=== PATIENT | male | born 1960 | race Caucasian/White ===

== ENCOUNTER 2016-06-21 12:59 | Emergency (ER) | payer OTHER, MEDICARE ==
[~2016-06-21] VITALS: Ht 175.3 cm; Wt 58.1 kg
[~2016-06-21 12:59] MED LIST: <VITAMIN> A + D1 APP TOP; ACETAMINOPHEN/H1 TAB PO; ALBUTEROL 3 ML3 ML INH; ALBUTEROL0.09 MG/A1 INH; AMBIEN5 M1 PO; AMITRIPTYLINE H25 M2 PO; AMITRIPTYLINE H25 MG PO; AMITRIPTYLINE H75 MG PO; ASPIR 8181 MG PO; ASPIRIN EC81 M1 PO; ATORVASTATIN CA20 MG PO; AUGMENTIN 875 M1 TAB PO; AUGMENTIN 875875 MG PO; BACTRIM 400-801 EACH PO; BACTRIM DS 8001 TAB PO; BACTRIM DS TAB1 EACH PO; BIAXIN FILMTAB500 MG PO; CEFTAZIDIME2 GM IV; CEFUROXIME AXE250 MG PO; CELEXA20 MG PO; CELEXA40 MG PO; CIPRO 500MG (E500 MG PO; CIPRO 500MG TA500 MG PO; CIPRO500 M1 PO; CIPRO500 MG PO; CLINDAMYCIN HY300 MG PO; CYCLOBENZAPRINE10 M1 PO; CYCLOBENZAPRINE10 M3 PO; CYCLOBENZAPRINE10 MG PO; DICYCLOMINE HCL10 MG PO; DIFLUCAN200 M1 PO; DILAUDID 4 MG TA4 MG PO; DILAUDID2 M1 PO; DILAUDID2 MG PO; DILAUDID8 MG PO; DURAGESIC1 EAC1 TOP; ECOTRIN81 MG PO; ENDOCET 325 MG-1 TA1 PO; Ecotrin Low Strength PO; FENTANYL T100 MCG/HR TP; FENTANYL1 EAC2 TOP; FERROUS SULFAT325 MG PO; FLEXERIL10 MG PO; GABAPENTIN100 M2 PO; GABAPENTIN400 MG PO; GRALISE600 MG PO; HYDROMORPHONE HC2 MG PO; INVANZ1 G1 IV; LEVSIN/SL0.125 MG SL; LIORESAL 10MG T10 MG PO; LIPITOR20 M1 PO; MACROBID100 MG PO; MEROPENEM1 G1 IV; MEROPENEM1 GM IV; MERREM1 GM IV; MIDODRINE HCL10 MG PO; MIDODRINE HCL5 M1 PO; MIRALAX17 GM PO; MORPHINE SULFAT15 M4 PO; MORPHINE SULFAT15 MG PO; MORPHINE SULFAT30 M2 PO; MORPHINE SULFAT30 M5 PO; MORPHINE SULFAT30 M7 PO; MS CONTIN30 M1 PO; MS CONTIN30 MG PO; MULTIVITAMIN1 SGL PO; MULTIVITAMINS1 EAC9 PO; NEURONTIN100 MG PO; NEURONTIN300 MG PO; NOVAPLUS F100 MCG/HR PAT; OMEPRAZOLE20 M1 PO; OXYBUTYNIN CHLOR5 MG PO; OXYBUTYNIN10 MG PO; PERCOCET 325 MG1 TA2 PO; PERCOCET 5-3251 EACH PO; PROAIR HFA8.5 GM INH; PROTONIX 40MG T40 MG PO; REMERON30 M3 PO; REMERON30 MG PO; SENNA PLUS 50 M1 TAB PO; SIMVASTATIN40 M1 PO; SIMVASTATIN40 MG PO; SIMVASTATIN5 MG PO; SMZ-TMP 800 MG-1 TAB PO; TESSALON PERLE100 M1 PO; TESSALON PERLE100 MG PO; VALIUM2 M1 PO; VALIUM2 MG PO; VALIUM5 M1 PO; VANCO 1 GR1 GM/250 M IV; VANCOMYCIN 11000 MG IV; VANCOMYCIN HCL1 G1 IV; VICODIN5-300 PO; VITAMIN A10000 IU PO; VITAMIN A10000 UNI1 PO; VITAMIN C1000 M1 PO; VITAMIN C1000 M4 PO; ZITHROMAX Z-PA250 M1 PO; ZITHROMAX250 M2 PO; ZOLPIDEM TARTRAT5 MG PO
--- NOTE | 2016-06-21 13:45 | ED SYNCOPE COMPLAINT ---
History of Present Illness General Chief Complaint: Syncope and Near-Syncope Stated Complaint: SYNCOPE Source: patient, old records Exam Limitations: no limitations Vital Signs & Intake/Output Vital Signs & Intake/Output Vital Signs Date Time Temp Pulse Resp B/P Pulse O2 O2 Flow FiO2 Ox Delivery Rate 06/21 1519 98.6 85 18 122/84 98 Room Air 06/21 1300 95.8 71 18 121/88 99 Room Air Allergies Coded Allergies: No Known Drug Allergies (03/27/16) Reconcile Medications Amitriptyline HCl 25 MG TABLET 1 TAB PO QHS SLEEP (Reported) Ascorbic Acid (Vitamin C) 1,000 MG TABLET 1 TAB PO DAILY SUPPLEMENT (Reported ) Aspirin (Ecotrin) 81 MG TABLET.DR 1 TAB PO DAILY HEART/BLOOD (Reported) Cyclobenzaprine HCl 10 MG TABLET 1 TAB PO TID PRN SPASMS (Reported) Diazepam (Valium) 2 MG TABLET 1 TAB PO TID PRN MUSCLE SPASMS/ANXIETY ( Reported) Ertapenem (Invanz) 1 GRAM VIAL 1 VIAL IV Q24 infection Fluconazole (Diflucan) 200 MG TABLET 1 TAB PO DAILY CYSTITIS Gabapentin (Unknown Strength) CAPSULE 300 MG PO BID PAIN (Reported) Midodrine HCl 5 MG TABLET 3 TAB PO BID HYPOTENSION (Reported) Mirtazapine (Remeron) 30 MG TABLET 1 TAB PO QHS SLEEP (Reported) Morphine Sulfate 15 MG TABLET 1 TAB PO Q6 ABDOMINAL PAIN (Reported) Morphine Sulfate (Ms Contin) 30 MG TABLET.ER 1 TAB PO TIDPRN SEVERE PAIN ( Reported) Multiple Vitamin (Multivitamins) 1 EACH TABLET 1 TAB PO DAILY SUPPLEMENT ( Reported) Vitamin A Palmitate (Vitamin A) 10,000 UNIT CAPSULE 1 CAP PO DAILY SUPPLEMENT (Reported) Zolpidem Tartrate (Ambien) 5 MG TABLET 1 TAB PO QHS SLEEP (Reported) Triage Note: 56 YO MALE TO ER AFTER RAPID RESPONSE FROM WOUND CARE CENTER. PT STATES HE FINISHED HER HYPERBARIC TREATMENT FOR BED SORES AND HE BECOME DIZZY. ?SYNCOPLE EPISODE. PT ARRIVED TO ER IN MOTORIZED WHEELCHAIR DRIVING HIMSELF INTO ROOM. 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 BLOOD SUGAR 111. BP 121/88. PT REPORTS DIZZINESS NOW AND CHRONIC ABD PAIN. PT HAS PICC LINE IN PLACE IN RIGHT UPPER ARM. Triage Nurses Notes Reviewed? yes HPI: 56-year-old male presents rapid response from the wound center after he had a near syncopal episode when coming out of the hyperbaric treatment. This is the patient's first treatment in the hyperbaric chamber. He states that he is feeling lightheaded and almost passed out. He denies any associated chest pain shortness of breath. On arrival the patient arrives in the ER in his wheelchair driving himself. He denies any complaints he denies any nausea vomiting. Blood sugars 111. No history of syncope in the past. He is not currently on any antibiotics are requesting pain medication for his chronic abdominal pain rated there's been no recent fever or chills no other complaints. He states that he did not eat breakfast this morning. There's been no recent head trauma or other injury. Past History Travel History Traveled to [place] past 21 day No Medical History Any Pertinent Medical History? 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 No Review of Systems Review of Systems Constitutional: Reports: see HPI. All Other Systems: Reviewed and Negative Comments Review of systems: See HPI, All other systems negative. Constitutional, no chills no fever, no malaise no weight loss HEENT: No visual changes no sore throat no congestion, no ear pain Cardiovascular: No chest pain , no palpitation , no orthopnea no ankle swelling Skin, no jaundice no rashes, no change in skin Respiratory: No dyspnea no cough no sputum no hemoptysis GI: No nausea no vomiting, no diarrhea, no bloating/constipation : No dysuria No hematuria, no frequency, no discharge Muscle skeletal: No joint pain, no joint swelling, no back pain, no neck pain, Neurologic: No numbness no confusion, no headache Psych: No stress no anxiety no depression,. Heme/endocrine: No bruising no bleeding Immunology: No lymphadenopathy Physical Exam Physical Exam General Appearance: well developed/nourished, alert, awake Cranial Nerves: normal hearing, normal speech, PERRL Comments: Well-developed well-nourished person in no acute distress HEENT: Normal EENT exam; PERRL, EOMI, no nystagmus. HEAD is atraumatic. moist mucous membranes. Neck: Supple normal range of motion Back: Nontender, no CVA tenderness. Full range of motion Cardiovascular: Regular rate and rhythms no murmurs rubs or gallops, normal JVP Respiratory: Chest nontender.There were no bony deformities, no asymmetry. No respiratory distress. Patient speaking in full complete sentences. Breath sounds clear to auscultation bilaterally: NO W/R/R Abdomen: Soft, colostomy bag intact nontender nondistended, no appreciable organomegaly. Normal bowel sounds. No rebound/guarding, No appreciable enlargement of the abdominal aorta, No ascites. Extremity: No edema, paraplegic, normal and equal pulses bilaterally Neuro: Alert oriented x3, motor sensory normal,There were no obvious focal neurologic abnormalities. Skin: No appreciable rash on exposed skin, skin is warm and dry. Psych: Mood and affect is normal, memory and judgment is normal. Core Measures ACS in differential dx? Yes CVA/TIA Diagnosis: No Severe Sepsis Present: No Septic Shock Present: No Progress Differential Diagnosis: drug induced syncope, hyperventilation, pulmonary embolus, dehydration, electrolyte abnormality, ami, Plan of Care: Orders Procedure Date/time Status TROPONIN LEVEL 06/21 133 Complete CBC WITHOUT DIFFERENTIAL 06/21 1333 Complete BASIC METABOLIC PANEL 06/21 1333 Complete EKG 06/21 1306 Active Current Medications Sig/Nelson Start time Last Medication Dose Stop Time Status Admin Hydromorphone HCl 1 MG ONCE ONE 06/21 1345 CAN (Dilaudid) 06/21 1346 Laboratory Tests 01/09/17 1355: Anion Gap 14, Estimated GFR > 60, BUN/Creatinine Ratio 20.0, Glucose 95, Calcium 9.7, Troponin I < 0.01, CBC w Diff MAN DIFF ORDERED, RBC 4.13 L, MCV 80.3, MCH 26.1 L, RDW 14.7 H, MPV 6.8 L, Gran % 78.2 H, Lymphocytes % 11.5 L, Monocytes % 3.4, Eosinophils % 5.9 H, Basophils % 1.0, Absolute Granulocytes 13.6 H, Absolute Lymphocytes 2.0, Absolute Monocytes 0.6, Absolute Eosinophils 1.0, Absolute Basophils 0.2, Platelet Estimate INCREASED, Normocytic RBCs VERIFIED, Normochromic RBCs VERIFIED, PUBS MCHC 32.5 L Labs ordered old records reviewed patient denies any symptoms at this time is requesting pain medication for his chronic abdominal pain. The patient is well- known to this ER been seen numerous times in the past for similar symptoms case was discussed with Dr. Boateng who agrees with plan old records reveal pts wbc is at baseline. On repeat eval pt resting in nad, will continue to monitor. Discussed the patient all his lab results again he is resting comfortably in no apparent distress advised follow-up with his primary care physician and return with any concerns he feels comfortable plan cleared for discharge (RAUL ANDERSON,NILS) Departure Departure Disposition: HOME OR SELF CARE Condition: Stable Clinical Impression Primary Impression: Near syncope Referrals: NAKITA RAMOS,TATYANA (PCP/Family) Additional Instructions: follow up with your primary carephysician this week. Departure Forms: Customer Survey General Discharge Information
[2016-06-21 14:05] LABS: ABSOLUTE BASOPHIL COUNT 0.2 /CUMM (0.0-0.2); ABSOLUTE GRANULOCYTE CT 13.6 /CUMM (1.4-6.5); ABSOLUTE MONOCYTE COUNT 0.6 /CUMM (0.10-0.60); EOSINOPHIL % 5.9 % (0-5); GRANULOCYTE % 78.2 % (42.2-75.2); HEMATOCRIT 33.1 % (42-52); MEAN CORPUSCULAR HGB 26.1 PG (27.0-31.0); MEAN CORPUSCULAR HGB CONC 32.5 G/DL (33.0-37.0); MEAN CORPUSCULAR VOLUME 80.3 FL (80.0-94.0); MEAN PLATELET VOLUME 6.8 FL (7.4-10.4); PLATELET COUNT 650 /CUMM (130-400); RBC DISTRIBUTION WIDTH 14.7 % (11.5-14.5); RED BLOOD CELL CT 4.13 /CUMM (4.70-6.10); WHITE BLOOD CELL COUNT 17.3 /CUMM (4.8-10.8)
[2016-06-21 15:19] VITALS: BP 122/84
== END 2016-06-21 15:20 ==
LOC: ERH 12:59
PROVIDERS: Physician Assistant Medical
DX: R55 Syncope and collapse (principal); I10 Essential (primary) hypertension; R10.9 Unspecified abdominal pain; M86.652 Other chronic osteomyelitis, left thigh; L89.894 Pressure ulcer of other site, stage 4; L89.153 Pressure ulcer of sacral region, stage 3
CPT/HCPCS: 93005; 93010; 96372; G0277

== ENCOUNTER 2016-06-28 10:08 | Emergency (ER) | payer OTHER, MEDICARE ==
[~2016-06-28] VITALS: Ht 175.3 cm; Wt 59.9 kg
--- NOTE | 2016-06-28 11:07 | ED GENERAL ADULT ---
History of Present Illness General Chief Complaint: General Adult Stated Complaint: HERE TO HAVE PICC LINE REMOVED Source: patient, old records Exam Limitations: no limitations Vital Signs & Intake/Output Vital Signs & Intake/Output Vital Signs Date Time Temp Pulse Resp B/P Pulse O2 O2 Flow FiO2 Ox Delivery Rate 06/28 1140 99.5 68 20 98/50 96 Room Air 06/28 1022 99.7 66 20 90/50 96 Room Air ED Intake and Output 06/29 0000 06/28 1200 Intake Total Output Total Balance Patient 132 lb Weight Allergies Coded Allergies: No Known Drug Allergies (03/27/16) Reconcile Medications Amitriptyline HCl 25 MG TABLET 1 TAB PO QHS SLEEP (Reported) Ascorbic Acid (Vitamin C) 1,000 MG TABLET 1 TAB PO DAILY SUPPLEMENT (Reported ) Aspirin (Ecotrin) 81 MG TABLET.DR 1 TAB PO DAILY HEART/BLOOD (Reported) Cyclobenzaprine HCl 10 MG TABLET 1 TAB PO TID PRN SPASMS (Reported) Diazepam (Valium) 2 MG TABLET 1 TAB PO TID PRN MUSCLE SPASMS/ANXIETY ( Reported) Ertapenem (Invanz) 1 GRAM VIAL 1 VIAL IV Q24 infection Fluconazole (Diflucan) 200 MG TABLET 1 TAB PO DAILY CYSTITIS Gabapentin (Unknown Strength) CAPSULE 300 MG PO BID PAIN (Reported) Midodrine HCl 5 MG TABLET 3 TAB PO BID HYPOTENSION (Reported) Mirtazapine (Remeron) 30 MG TABLET 1 TAB PO QHS SLEEP (Reported) Morphine Sulfate 15 MG TABLET 1 TAB PO Q6 ABDOMINAL PAIN (Reported) Morphine Sulfate (Ms Contin) 30 MG TABLET.ER 1 TAB PO TIDPRN SEVERE PAIN ( Reported) Multiple Vitamin (Multivitamins) 1 EACH TABLET 1 TAB PO DAILY SUPPLEMENT ( Reported) Vitamin A Palmitate (Vitamin A) 10,000 UNIT CAPSULE 1 CAP PO DAILY SUPPLEMENT (Reported) Zolpidem Tartrate (Ambien) 5 MG TABLET 1 TAB PO QHS SLEEP (Reported) Triage Note: PT TO ED FROM HYPERBARIC CHAMBER TO HAVE PICC LINE REMOVED TO [facility]. PT WAS FOUND TO HAVE LOW GRADE TEMP, SENT TO ED TO HAVE PICC REMOVED AND TIP OF PICC LINE SENT FOR CULTURE. TEMP 99.7. PT HAS NO COMPLAINTS. Triage Nurses Notes Reviewed? yes Onset: Abrupt Duration: day(s): (1) Timing: single episode today Injury Environment: home Severity: mild No Modifying Factors: none Associated Symptoms: LOW GRADE TEMP HPI: This is a 56-year-old male who presents to the ER for removal of his right arm and right PICC line. Per Dr. Walker [facility] he has been running a low-grade temperature and the PICC line has not been axis for 10 days and therefore they wanted it removed. He denies any pain at the site. No redness or swelling around the PICC line. Past History Travel History Traveled to [place] past 21 day No Medical History Any Pertinent Medical History? 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 Other Medical Hx: PARAPLEGIA History of MRSA: Yes History of VRE: Yes History of CDIFF: No Surgical History Surgical History: spinal fusion, status post colostomy status post skin grafts to the ischial decubiti Psychosocial History Who do you live with Paid Attentent Services at Home Home Health Aide, Nursing, Physical Therapy, Social Work What is your primary language Slovenian Tobacco Use: Quit >30 days ago ETOH Use: denies use Illicit Drug Use: denies illicit drug use Family History Family History, If Any: FATHER FH: coronary artery disease FH: diabetes mellitus FH: hypertension Hx Contributory? No Review of Systems Review of Systems Constitutional: Reports: fever (LOW GRADE TEMP REPORTED). Denies: chills. EENTM: Reports: no symptoms. Respiratory: Reports: no symptoms. Cardiovascular: Denies: chest pain. GI: Denies: abdominal pain. Genitourinary: Reports: no symptoms. Musculoskeletal: Reports: no symptoms. Skin: Reports: no symptoms. Neurological/Psychological: Reports: no symptoms. Hematologic/Endocrine: Denies: bruising, bleeding. Immunologic/Allergic: Reports: no symptoms. All Other Systems: Reviewed and Negative Physical Exam Physical Exam General Appearance: alert, awake, mild distress, thin Head: atraumatic, normal appearance Eyes: Bilateral: normal appearance, PERRL, EOMI. Ears, Nose, Throat: normal ENT inspection, hearing grossly normal Neck: normal inspection, supple, full range of motion Respiratory: normal breath sounds, chest non-tender, no respiratory distress Cardiovascular: regular rate/rhythm Extremities: RIGHT ARM INDWELLING PICC BINH, NO SURROUNDING ERYTHEMA Neurologic/Psych: awake, alert, oriented x 3 Skin: intact Core Measures ACS in differential dx? No CVA/TIA Diagnosis: No Severe Sepsis Present: No Septic Shock Present: No Progress Differential Diagnoses I considered the following diagnoses in my evaluation of the patient: [PICC LINE INFECTION, PICC LINE SEPSIS] Plan of Care: Orders Procedure Date/time Status THEODORA TECHNIQUE 06/28 111 Active Microbiology 06/28 1121 CATH TIP: Catheter Tip Culture - RECD Right arm PICC line removed. Tip catheter sent to lab under Theodora technique. PICC line measured 39 cm. (IRENE RAMOS,BREANN) Initial ED EKG: none Departure Departure Time of Disposition: 1121 Disposition: HOME OR SELF CARE Condition: Stable Clinical Impression Primary Impression: PIC line (peripherally inserted central catheter) removal Referrals: TATYANA MACE MD (PCP/Family) Additional Instructions: Follow up with Dr. Walker at the wound care center as scheduled. Departure Forms: Customer Survey General Discharge Information Critical Care Note Critical Care Note Critical Care Time: non-applicable
[2016-06-28 11:40] VITALS: BP 98/50
== END 2016-06-28 11:41 ==
LOC: ERH 10:08
DX: Z45.2 Encounter for adjustment and management of vascular access device (principal)
CPT/HCPCS: 87070; 87205

== ENCOUNTER 2016-07-12 19:58 | Emergency (ER) | payer OTHER, MEDICARE ==
[~2016-07-12] VITALS: Ht 175.3 cm; Wt 59.9 kg
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
[2016-07-12 21:20] LABS: ABSOLUTE BASOPHIL COUNT 0 /CUMM (0.0-0.2); ABSOLUTE EOSINOPHIL COUNT 0.3 /CUMM (0.0-0.7); ABSOLUTE GRANULOCYTE CT 8.5 /CUMM (1.4-6.5); ABSOLUTE LYMPH COUNT 1.6 /CUMM (1.2-3.4); ABSOLUTE MONOCYTE COUNT 0.8 /CUMM (0.10-0.60); BASOPHIL % 0.4 % (0.0-2.0); GRANULOCYTE % 75.9 % (42.2-75.2); HEMATOCRIT 35.2 % (42-52); MEAN CORPUSCULAR HGB 26.1 PG (27.0-31.0); MEAN CORPUSCULAR HGB CONC 32.2 G/DL (33.0-37.0); MEAN PLATELET VOLUME 7.1 FL (7.4-10.4); PLATELET COUNT 514 /CUMM (130-400); RBC DISTRIBUTION WIDTH 15.3 % (11.5-14.5); RED BLOOD CELL CT 4.35 /CUMM (4.70-6.10); WHITE BLOOD CELL COUNT 11.2 /CUMM (4.8-10.8)
--- NOTE | 2016-07-12 22:46 | CT SCAN REPORT ---
EXAMINATION: CT ANGIOGRAM OF THE CHEST WITH AND WITHOUT CONTRAST (CT PULMONARY ANGIOGRAM FOR PE) CLINICAL INFORMATION: Symptoms: NON SMALL CELL CANCER, HEMOPTYSIS, R/O PE
COMPARISON: CT chest 08/20/2015 TECHNIQUE: Prior to contrast administration, noncontrast localization images were obtained. Subsequently, multidetector volumetric imaging was performed from the thoracic inlet to below the diaphragms following the administration of 75 mL Optiray 350 intravenous contrast. No contrast reaction reported Sagittal, coronal, and MIP oblique sagittal reformatted images were obtained on the CT workstation, uploaded to PACS, and reviewed. Total exam dose-length product 235.83 mGy-cm FINDINGS: QUALITY OF STUDY/CONTRAST BOLUS: Satisfactory. PULMONARY ARTERIES: No central or segmental pulmonary emboli. THORACIC AORTA: No aneurysm or dissection. LUNG: Emphysematous changes of the lungs with blebs at lung apices. There is an irregular 1.4 x 0.4 cm nodule in the right upper lobe that has associated pleural tagging. This is suspicious lesion. Lesion has increased in size since CAT scan of 08/20/2015. Lesion measured 0.8 cm and has no pleural tag. There is a focus of groundglass opacity measuring about 3 cm the right perihilar lung. This is nonspecific. Could be neoplastic or infectious in etiology. This is new since exam of 08/20/2015. There is scarring with bronchiectasis and volume loss and pleural thickening at the left lung base posteriorly. The airspace disease in the right lower lobe on prior CAT scan 08/20/2015 has resolved. Also a dense airspace disease and atelectasis in the left midlung and perihilar lung has resolved since prior CAT scan. PLEURA: Pleural thickening at the medial left lung base. MEDIASTINUM: Normal heart size. No pericardial effusion. No hilar or mediastinal lymphadenopathy. No evidence of septal bowing or right heart strain. CHEST WALL/AXILLA: No axillary or internal mammary lymphadenopathy. OSSEOUS STRUCTURES: Orthopedic hardware fusion upper thoracic spine. UPPER ABDOMEN: Unremarkable. IMPRESSION: 1. No evidence of pulmonary embolism. 2. Emphysematous changes of lung. 3. Small irregular nodule right lung apex which is suspicious. This has increased in size since CAT scan 08/20/2015. 4. Geographic groundglass opacity in the right perihilar lung. This is nonspecific. This density is new since CAT scan of 08/20/2015. 5. Airspace disease at right lung base has resolved. Dense consolidation left lung since the prior CAT scan has resolved. VTE: Negative for pulmonary embolism.
[2016-07-12] MEDS ORDERED: LEVAQUIN750 M1 PO (23:28)
[2016-07-13 00:06] VITALS: BP 120/74
== END 2016-07-13 00:55 ==
LOC: ERH 19:58
PROVIDERS: Emergency Medicine
DX: J18.9 Pneumonia, unspecified organism (principal); N39.0 Urinary tract infection, site not specified
CPT/HCPCS: 81001; 87086; 93005; 93010; 96374; 96375; 96376

== ENCOUNTER 2016-07-15 19:06 | Emergency (ER) | payer OTHER, MEDICARE ==
[~2016-07-15] VITALS: Ht 175.3 cm; Wt 58.5 kg
[~2016-07-15 19:06] MED LIST changes: +LEVAQUIN750 M1 PO
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
[2016-07-15 20:33] LABS: ABSOLUTE BASOPHIL COUNT 0 /CUMM (0.0-0.2); ABSOLUTE EOSINOPHIL COUNT 0.4 /CUMM (0.0-0.7); ABSOLUTE GRANULOCYTE CT 10.6 /CUMM (1.4-6.5); ABSOLUTE LYMPH COUNT 1.5 /CUMM (1.2-3.4); ABSOLUTE MONOCYTE COUNT 0.9 /CUMM (0.10-0.60); BASOPHIL % 0.2 % (0.0-2.0); EOSINOPHIL % 2.8 % (0-5); HEMATOCRIT 32.9 % (42-52); MEAN CORPUSCULAR HGB 26.2 PG (27.0-31.0); MEAN CORPUSCULAR HGB CONC 32.6 G/DL (33.0-37.0); MEAN CORPUSCULAR VOLUME 80.5 FL (80.0-94.0); MEAN PLATELET VOLUME 7.1 FL (7.4-10.4); PLATELET COUNT 530 /CUMM (130-400); RBC DISTRIBUTION WIDTH 14.8 % (11.5-14.5); RED BLOOD CELL CT 4.09 /CUMM (4.70-6.10); WHITE BLOOD CELL COUNT 13.4 /CUMM (4.8-10.8)
--- NOTE | 2016-07-15 21:39 | RADIOLOGY REPORT ---
EXAMINATION: XR CHEST PORTABLE CLINICAL INFORMATION: Hemoptysis. History of lung cancer. COMPARISON: Chest CTA 07/12/2016. TECHNIQUE: Portable AP view of the chest was obtained. FINDINGS: Subtle right perihilar opacity and right upper lobe nodule as demonstrated on the CT. The left lung appears clear. No pleural effusion. Stable cardiomediastinal silhouette. IMPRESSION: Subtle, ill-defined right perihilar opacity may represent pneumonia, demonstrated on the recent chest CTA.
[2016-07-15 23:49] VITALS: BP 98/60
== END 2016-07-15 23:51 ==
LOC: ERH 19:06
PROVIDERS: Physician Assistant Medical
DX: N39.0 Urinary tract infection, site not specified (principal); R91.1 Solitary pulmonary nodule
CPT/HCPCS: 96374; 96376

== ENCOUNTER 2016-07-21 21:07 | Emergency (ER) | payer OTHER, MEDICARE ==
[~2016-07-21] VITALS: Ht 177.8 cm; Wt 56.7 kg
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
[2016-07-21 22:05] LABS: ABSOLUTE BASOPHIL COUNT 0.2 /CUMM (0.0-0.2); ABSOLUTE EOSINOPHIL COUNT 0.5 /CUMM (0.0-0.7); ABSOLUTE GRANULOCYTE CT 11.5 /CUMM (1.4-6.5); ABSOLUTE LYMPH COUNT 2.2 /CUMM (1.2-3.4); ABSOLUTE MONOCYTE COUNT 0.7 /CUMM (0.10-0.60); BASOPHIL % 1.3 % (0.0-2.0); MEAN CORPUSCULAR HGB CONC 32.3 G/DL (33.0-37.0); MEAN CORPUSCULAR VOLUME 80.5 FL (80.0-94.0); MEAN PLATELET VOLUME 7.4 FL (7.4-10.4); PLATELET COUNT 662 /CUMM (130-400); RBC DISTRIBUTION WIDTH 15.2 % (11.5-14.5); RED BLOOD CELL CT 4.77 /CUMM (4.70-6.10); WHITE BLOOD CELL COUNT 15.2 /CUMM (4.8-10.8)
[2016-07-21 22:06] LABS: EOSINOPHIL % 3.6 % (0-5)
[2016-07-22] MEDS ORDERED: DILAUDID2 M1 PO (00:31)
[2016-07-22] MEDS ORDERED: LEVAQUIN500 M1 PO (00:31)
[2016-07-22 00:58] VITALS: BP 134/69
[2016-07-22 15:40] LABS: HEMATOCRIT 38.4 % (42-52)
== END 2016-07-22 01:28 ==
LOC: ERH 21:07
PROVIDERS: Physician Assistant
DX: N39.0 Urinary tract infection, site not specified (principal)
CPT/HCPCS: 81001; 96374; 96375; 96376; J2405

== ENCOUNTER 2016-07-26 06:54 | Emergency (ER) | payer OTHER, MEDICARE ==
[~2016-07-26] VITALS: Ht 177.8 cm; Wt 59.0 kg
[~2016-07-26 06:54] MED LIST changes: +LEVAQUIN500 M1 PO
--- NOTE | 2016-07-26 07:11 | ED GI/GU/ABDOMINAL COMPLAINT ---
History of Present Illness General Chief Complaint: Abdominal Pain/Flank Pain Stated Complaint: BIBA ABD PAIN Source: patient, old records Exam Limitations: no limitations Vital Signs & Intake/Output Vital Signs & Intake/Output Vital Signs Date Time Temp Pulse Resp B/P Pulse O2 O2 Flow FiO2 Ox Delivery Rate 07/26 0802 97.0 90 20 134/69 98 Room Air 07/26 0700 Room Air 07/26 0657 97.7 83 20 169/82 98 Room Air Allergies Coded Allergies: No Known Drug Allergies (03/27/16) Reconcile Medications Amitriptyline HCl 25 MG TABLET 1 TAB PO QHS SLEEP (Reported) Ascorbic Acid (Vitamin C) 1,000 MG TABLET 1 TAB PO DAILY SUPPLEMENT (Reported ) Aspirin (Ecotrin) 81 MG TABLET.DR 1 TAB PO DAILY HEART/BLOOD (Reported) Cyclobenzaprine HCl 10 MG TABLET 1 TAB PO TID PRN SPASMS (Reported) Diazepam (Valium) 2 MG TABLET 1 TAB PO TID PRN MUSCLE SPASMS/ANXIETY ( Reported) Gabapentin (Unknown Strength) CAPSULE 300 MG PO BID PAIN (Reported) Hydromorphone HCl (Dilaudid) 2 MG TABLET 1 TAB PO BIDP PRN PAIN Levofloxacin (Levaquin) 500 MG TABLET 1 TAB PO DAILY UTI Metaxalone (Skelaxin) 800 MG TABLET 1 TAB PO TID PRN SPASM Midodrine HCl 5 MG TABLET 3 TAB PO BID HYPOTENSION (Reported) Mirtazapine (Remeron) 30 MG TABLET 1 TAB PO QHS SLEEP (Reported) Morphine Sulfate 15 MG TABLET 1 TAB PO Q6 ABDOMINAL PAIN (Reported) Morphine Sulfate (Ms Contin) 30 MG TABLET.ER 1 TAB PO TIDPRN SEVERE PAIN ( Reported) Multiple Vitamin (Multivitamins) 1 EACH TABLET 1 TAB PO DAILY SUPPLEMENT ( Reported) Oxycodone HCl/Acetaminophen (Percocet 5-325 MG Tablet) 5 MG-325 MG TABLET 1 TAB PO Q4-6 PRN PAIN Vitamin A Palmitate (Vitamin A) 10,000 UNIT CAPSULE 1 CAP PO DAILY SUPPLEMENT (Reported) Zolpidem Tartrate (Ambien) 5 MG TABLET 1 TAB PO QHS SLEEP (Reported) Triage Note: PT BIBA C/O ABDOMINAL PAIN THAT RADIATES TO BOTH SIDES BILATERALLY. PT STATES HE HAS CHRONIC UTI'S AND BELIEVES THIS IS WHAT IS CAUSING THE PAIN. PT STATES HE IS TAKING LEVAQUIN X5 DAYS BUT ISNT HELPING. PT STATES PAIN IS 10/10 Triage Nurses Notes Reviewed? yes Duration: day(s): (FEW) Timing: multiple episodes today Location: generalized abdomen Radiation: back Activities at Onset: none Prior Abdominal Problems: similar symptoms No Modifying Factors: none HPI: 56 year old male here with intractable abdominal pain started at 2:30 am today. Pain is chronic in natrure, only better with IV dilaudid. Denies relief with any other pain medications. Colostomy was changed yesterday, no issues with either colostomy or with his nowak catheter. Currently on Levaquin x 5 days prescribed in the ER. He states he is no longer in pain management. Currently stereotactic radiation for his lung cancer is finished. Past History Travel History Traveled to [place] past 21 day No Medical History Any Pertinent Medical History? see below for history Neurological: PARAPLEGIC autonomic dysreflexia EENT: NONE Cardiovascular: hypertension, myocardial infarction Respiratory: ASPIRATION PNEUMONIA Gastrointestinal: GERD, COLOSTOMY PEPTIC ULCER DISEASE Hepatic: NONE Renal: nephrolithiasis (bladder), neurogenic bladder, SUPRAPUBIC CYSTOSTOMY ZURI UTI's Musculoskeletal: chronic back pain, DECUBITIS R HIP & COCCYX TIB/FIB FX CHRONIC NECK PAIN STAGE 4 PRES ULCER COCCYX OSTEOMYELITIS (BILATERAL ISCHIA) Psychiatric: NONE Endocrine: NONE Blood Disorders: anemia Cancer(s): lung cancer (non-small cell) NETWORK LEAD/Reproductive: NONE Other Medical Hx: PARAPLEGIA History of MRSA: Yes History of VRE: Yes History of CDIFF: No Surgical History Surgical History: spinal fusion, status post colostomy status post skin grafts to the ischial decubiti Psychosocial History Who do you live with Paid Attentent Services at Home Home Health Aide, Nursing, Physical Therapy, Social Work What is your primary language Portuguese Tobacco Use: Never used ETOH Use: denies use Family History Family History, If Any: FATHER FH: coronary artery disease FH: diabetes mellitus FH: hypertension Hx Contributory? No Review of Systems Review of Systems Constitutional: Denies: chills, fever. EENTM: Reports: no symptoms. Respiratory: Denies: cough. Cardiovascular: Denies: chest pain. GI: Reports: abdominal pain. Denies: changes in stool, vomiting. Genitourinary: Reports: no symptoms. Musculoskeletal: Reports: no symptoms. Skin: Reports: no symptoms. Neurological/Psychological: Reports: no symptoms. Hematologic/Endocrine: Denies: bleeding. Immunologic/Allergic: Reports: no symptoms. All Other Systems: Reviewed and Negative Physical Exam Physical Exam General Appearance: alert, awake, cachetic, mild distress, thin Head: atraumatic Eyes: Bilateral: PERRL, EOMI. Ears, Nose, Throat, Mouth: moist mucous membrane Neck: normal inspection, supple, full range of motion Respiratory: normal breath sounds Cardiovascular: regular rate/rhythm Peripheral Pulses: 2+ radial (R), 2+ radial (L) Gastrointestinal: firm, COLOSTOMY IN PLACE Neurologic/Psych: awake, alert, depressed affect Core Measures ACS in differential dx? No Severe Sepsis Present: No Septic Shock Present: No Progress Differential Diagnosis: EXACERBATION OF CHRONIC PAIN, CHRONIC uti Plan of Care: Current Medications Sig/Nelson Start time Last Medication Dose Stop Time Status Admin Hydromorphone HCl 2 MG ONCE ONE 07/26 744 AC (Dilaudid) 07/26 745 8:24 AM PATIENT FEELING BETTER AFTER DILAUDID ADMINISTRATION. ASKING FOR RX FOR MUSCLE RELAXANT/PAIN MED. ALSO REQUESTING NAME FOR SURGEON FOR POTENTIAL EXPLORATORY LAPAROSCOPY FOR CHRONIC ABDOMINAL PAIN. [facility] CALLED. (IRENE RAMOS,BREANN) Initial ED EKG: none Departure Departure Time of Disposition: 816 Disposition: HOME OR SELF CARE Condition: Stable Clinical Impression Primary Impression: Chronic abdominal pain Referrals: TATYANA MACE MD (PCP/Family) Additional Instructions: TAKE THE SKELAXIN AND PERCOCET DIRECTED. FOLLOW UP WITH YOUR DOCTOR IN THE OFFICE. Departure Forms: Customer Survey General Discharge Information Prescriptions: Current Visit Scripts Metaxalone (Skelaxin) 1 TAB PO TID PRN SPASM #20 TAB Oxycodone HCl/Acetaminophen (Percocet 5-325 MG Tablet) 1 TAB PO Q4-6 PRN PAIN #10 TAB
[2016-07-26] MEDS ORDERED: SKELAXIN800 M1 PO (08:17)
[2016-07-26] MEDS ORDERED: PERCOCET 5-3251 EACH PO (08:17)
[2016-07-26 08:37] VITALS: BP 145/88
== END 2016-07-26 08:24 ==
LOC: ERH 06:54
DX: G89.29 Other chronic pain (principal); R10.84 Generalized abdominal pain
CPT/HCPCS: 96372

== ENCOUNTER 2016-08-05 21:23 | Emergency (ER) | payer OTHER, MEDICARE ==
[~2016-08-05] VITALS: Ht 175.3 cm; Wt 59.4 kg
[~2016-08-05 21:23] MED LIST changes: +SKELAXIN800 M1 PO
--- NOTE | 2016-08-05 21:43 | ED GI/GU/ABDOMINAL COMPLAINT ---
History of Present Illness General Chief Complaint: Abdominal Pain/Flank Pain Stated Complaint: BIBA FOR ABD PAIN AND RAJPUT Source: patient, old records, EMS Exam Limitations: no limitations Vital Signs & Intake/Output Vital Signs & Intake/Output Vital Signs Date Time Temp Pulse Resp B/P Pulse O2 O2 Flow FiO2 Ox Delivery Rate 08/06 0053 99.2 98 16 117/57 95 Room Air 08/05 2317 100.0 123 16 103/65 95 Room Air 08/05 2128 98.8 75 18 178/92 97 Room Air ED Intake and Output 08/06 0000 08/05 1200 Intake Total 0 Output Total Balance 0 Intake, Oral 0 Patient 131 lb Weight Allergies Coded Allergies: No Known Drug Allergies (03/27/16) Reconcile Medications Amitriptyline HCl 25 MG TABLET 1 TAB PO QHS SLEEP (Reported) Ascorbic Acid (Vitamin C) 1,000 MG TABLET 1 TAB PO DAILY SUPPLEMENT (Reported ) Aspirin (Ecotrin) 81 MG TABLET.DR 1 TAB PO DAILY HEART/BLOOD (Reported) Cyclobenzaprine HCl 10 MG TABLET 1 TAB PO TID PRN SPASMS (Reported) Diazepam (Valium) 2 MG TABLET 1 TAB PO TID PRN MUSCLE SPASMS/ANXIETY ( Reported) Gabapentin (Unknown Strength) CAPSULE 300 MG PO BID PAIN (Reported) Hydromorphone HCl (Dilaudid) 2 MG TABLET 1 TAB PO BIDP PRN PAIN Levofloxacin (Levaquin) 500 MG TABLET 1 TAB PO DAILY uti Levofloxacin (Levaquin) 500 MG TABLET 1 TAB PO DAILY UTI Metaxalone (Skelaxin) 800 MG TABLET 1 TAB PO TID PRN SPASM Midodrine HCl 5 MG TABLET 3 TAB PO BID HYPOTENSION (Reported) Mirtazapine (Remeron) 30 MG TABLET 1 TAB PO QHS SLEEP (Reported) Morphine Sulfate 15 MG TABLET 1 TAB PO Q6 ABDOMINAL PAIN (Reported) Morphine Sulfate (Ms Contin) 30 MG TABLET.ER 1 TAB PO TIDPRN SEVERE PAIN ( Reported) Multiple Vitamin (Multivitamins) 1 EACH TABLET 1 TAB PO DAILY SUPPLEMENT ( Reported) Oxycodone HCl/Acetaminophen (Percocet 5-325 MG Tablet) 5 MG-325 MG TABLET 1 TAB PO Q4-6 PRN PAIN Vitamin A Palmitate (Vitamin A) 10,000 UNIT CAPSULE 1 CAP PO DAILY SUPPLEMENT (Reported) Zolpidem Tartrate (Ambien) 5 MG TABLET 1 TAB PO QHS SLEEP (Reported) Triage Note: PT BIBA C/O RAJPUT +PHOTOSENSITIVITY X4 HOURS, CHRONIC ABD PAIN. Triage Nurses Notes Reviewed? yes Onset: Gradual Duration: worse persistent since (4 hours) Timing: recent history Quality/Severity: cramping, throbbing Severity Numbers: 7 Location: generalized abdomen Radiation: no radiation Activities at Onset: none Prior Abdominal Problems: similar symptoms Past Sexual History: Unobtainable at this time HPI: Patient is a 56-year-old male who is a paraplegic presenting to the emergency Department chief complaint of his suprapubic tube being clogged for the past several hours. He reports that when this happens it causes elevated blood pressure and headaches. Patient also reporting chronic abdominal pain flaring up. Denies any fevers or chills. Denies nausea or vomiting. Denies any change in output in the ostomy bag. (NANCY CAMPOS) Past History Travel History Traveled to [place] past 21 day No Medical History Any Pertinent Medical History? see below for history Neurological: PARAPLEGIC autonomic dysreflexia EENT: NONE Cardiovascular: hypertension, myocardial infarction Respiratory: ASPIRATION PNEUMONIA Gastrointestinal: GERD, COLOSTOMY PEPTIC ULCER DISEASE Hepatic: NONE Renal: nephrolithiasis (bladder), neurogenic bladder, SUPRAPUBIC CYSTOSTOMY ZURI UTI's Musculoskeletal: chronic back pain, DECUBITIS R HIP & COCCYX TIB/FIB FX CHRONIC NECK PAIN STAGE 4 PRES ULCER COCCYX OSTEOMYELITIS (BILATERAL ISCHIA) Psychiatric: NONE Endocrine: NONE Blood Disorders: anemia Cancer(s): lung cancer (non-small cell) SENIOR CONSTRUCTION MANAGER/Reproductive: NONE Other Medical Hx: PARAPLEGIA History of MRSA: Yes History of VRE: Yes History of CDIFF: No Surgical History Surgical History: spinal fusion, status post colostomy status post skin grafts to the ischial decubiti Psychosocial History Who do you live with Paid Attentent Services at Home Home Health Aide, Nursing, Physical Therapy, Social Work What is your primary language Persian Tobacco Use: Current Not Daily Family History Family History, If Any: FATHER FH: coronary artery disease FH: diabetes mellitus FH: hypertension Hx Contributory? No (NANCY CAMPOS) Review of Systems Review of Systems Constitutional: Reports: no symptoms. Comments Review of systems: See HPI, All other systems negative. Constitutional, no chills fever or weight loss HEENT: No visual changes no sore throat no congestion Cardiovascular: No chest pain ,palpitation Skin, no jaundice no rashes Respiratory: No dyspnea cough sputum or hemoptysis GI: No nausea no vomiting : No dysuria No hematuria Muscle skeletal: no back pain, no neck pain, Neurologic: No numbness no confusion Psych: No stress anxiety or depression,. Heme/endocrine: No bruising no bleeding no polyuria or polydipsia Immunology: No splenectomy or history of AIDS (NANCY CAMPOS) Physical Exam Physical Exam General Appearance: well developed/nourished, no apparent distress, alert, awake , comfortable, thin Gastrointestinal: normal bowel sounds, soft, tenderness Comments: thin person in no acute distress HEENT: extraocular motion intact, no nystagmus. Pupils equally round and reactive to light and accommodation. Nose is atraumatic. External auditory canal and Tympanic membranes clear. Pharynx normal. No swelling or edema. Neck: Normal inspection Back: Nontender, no CVA tenderness Cardiovascular: Regular rate and rhythms no murmurs rubs or gallops, normal JVP Respiratory: Chest nontender. No respiratory distress.breath sounds clear to auscultation bilaterally Abdomen: Soft, diffuse tenderness to palpation, no rebound or guarding, nondistended, no appreciable organomegaly. Normal bowel sounds. No ascites Extremity: No edema, lower extremities are contracted. Neuro: Alert oriented x3, cranial nerves II through XII grossly intact. Skin: No appreciable rash on exposed skin, skin is warm and dry. Psych: Mood and affect is normal, memory and judgment is normal. Core Measures ACS in differential dx? No Severe Sepsis Present: No Septic Shock Present: No (NANCY CAMPOS) Progress Differential Diagnosis: UTI/pyelo, chronic abdominal pain, UTI, pyelonephritis, hydronephrosis, sepsis, no dysfunction Plan of Care: Orders Procedure Date/time Status CULTURE,URINE 08/05 2223 Active URINALYSIS 08/05 2223 Complete EKG 08/05 2144 Active Laboratory Tests 08/05/16 2354: Urine Color STRAW, Urine Clarity TURBD H, Urine pH 6.0, Ur Specific [place]o 1.020, Urine Protein 100 H, Urine Ketones NEG, Urine Nitrite POS H, Urine Bilirubin NEG, Urine Urobilinogen 0.2, Ur Leukocyte Esterase LARGE H, Ur Microscopic SEDIMENT EXAMINED, Urine RBC 3-5, Urine WBC PACKD H, Urine Hemoglobin LARGE H, Urine Glucose NEG 08/05/16 2145: Troponin I Cancelled, CBC w Diff Cancelled, WBC Cancelled, RBC Cancelled, Hgb Cancelled, Hct Cancelled, MCV Cancelled, MCH Cancelled, RDW Cancelled, Plt Count Cancelled, MPV Cancelled, PUBS MCHC Cancelled Microbiology 08/05 2354 URINE ROUT: Urine Culture - RECD Initial ED EKG: NSR ( 80 bpm) Comments: 08/06/2016 12:21:46 AM patient will be sent home with prescription for antibiotics for urinary tract infection. Patient's blood pressure recovered after [place] catheter was unclogged. Draining foggy yellow urine. Approximately 800 mL expelled from the Escalante catheter. Feeling improved after IM Dilaudid. Patient will follow up with his PCP. Discussed with Dr. wilcox and agrees with plan. (NANCY CAMPOS) Departure Departure Time of Disposition: 24 Disposition: HOME OR SELF CARE Condition: Stable Clinical Impression Primary Impression: Urinary tract infection Qualifiers: Urinary tract infection type: site unspecified Hematuria presence: without hematuria Qualified Code: N39.0 - Urinary tract infection, site not specified Referrals: TATYANA MACE MD (PCP/Family) Additional Instructions: Follow-up with your primary care physician call to make an appointment. Increase fluids. Take antibiotics as prescribed. Return for worsening symptoms or concerns. Departure Forms: Customer Survey General Discharge Information Prescriptions: Current Visit Scripts Levofloxacin (Levaquin) 1 TAB PO DAILY #7 TAB (NANCY CAMPOS) PA/PROJECT CONTROL MANAGER Co-Sign Statement Statement: ED Attending supervision documentation- [] I saw and evaluated the patient. I have also reviewed all the pertinent lab results and diagnostic results. I agree with the findings and the plan of care as documented in the PA's/PROJECT CONTROL MANAGER's documentation. x I have reviewed the ED Record and agree with the PA's/PROJECT CONTROL MANAGER's documentation. [] Additions or exceptions (if any) to the PAs/PROJECT CONTROL MANAGER's note and plan are summarized below: [] (MORENA WILCOX MD)
[2016-08-06] MEDS ORDERED: LEVAQUIN500 M1 PO (00:27)
[2016-08-06 00:53] VITALS: BP 117/57
--- NOTE | 2016-08-06 17:27 | NUR ---
Case Mgmnt TSF: I called [facility] and discussed patient with them briefly. They will go out and assess the patient on Tuesday08/08/16. They will decide if they will take him on service then. I have called patient at home and let him know that I was trying to get [facility] out there this weekend and that they would call before they came out. Patient agreeable. CM complete at this time. I had spoken with Jason Martin at [facility].
== END 2016-08-06 01:06 ==
LOC: ERH 21:23
DX: N39.0 Urinary tract infection, site not specified (principal)
CPT/HCPCS: 81001; 87086; 93005; 93010; 96372

== ENCOUNTER 2016-08-16 09:27 | Emergency (ER) | payer OTHER, MEDICARE ==
--- NOTE | 2016-08-16 10:13 | ED GI/GU/ABDOMINAL COMPLAINT ---
History of Present Illness General Chief Complaint: Abdominal Pain/Flank Pain Stated Complaint: ABD PAIN X 3DAYS Source: patient, old records Exam Limitations: no limitations Vital Signs & Intake/Output Vital Signs & Intake/Output Vital Signs Date Time Temp Pulse Resp B/P Pulse O2 O2 Flow FiO2 Ox Delivery Rate 08/16 1410 97.9 87 18 140/97 97 Room Air 08/16 1214 97.7 107 18 135/88 98 Room Air 08/16 0944 96 08/16 0931 97.9 70 20 155/90 98 Room Air Allergies Coded Allergies: No Known Drug Allergies (03/27/16) Reconcile Medications Amitriptyline HCl 25 MG TABLET 1 TAB PO QHS SLEEP (Reported) Ascorbic Acid (Vitamin C) 1,000 MG TABLET 1 TAB PO DAILY SUPPLEMENT (Reported ) Aspirin (Ecotrin) 81 MG TABLET.DR 1 TAB PO DAILY HEART/BLOOD (Reported) Cyclobenzaprine HCl 10 MG TABLET 1 TAB PO TID PRN SPASMS (Reported) Diazepam (Valium) 2 MG TABLET 1 TAB PO TID PRN MUSCLE SPASMS/ANXIETY ( Reported) Gabapentin (Unknown Strength) CAPSULE 300 MG PO BID PAIN (Reported) Hydromorphone HCl (Dilaudid) 2 MG TABLET 1 TAB PO BIDP PRN PAIN Levofloxacin (Levaquin) 500 MG TABLET 1 TAB PO DAILY uti Levofloxacin (Levaquin) 500 MG TABLET 1 TAB PO DAILY UTI Metaxalone (Skelaxin) 800 MG TABLET 1 TAB PO TID PRN SPASM Midodrine HCl 5 MG TABLET 3 TAB PO BID HYPOTENSION (Reported) Mirtazapine (Remeron) 30 MG TABLET 1 TAB PO QHS SLEEP (Reported) Morphine Sulfate 15 MG TABLET 1 TAB PO Q6 ABDOMINAL PAIN (Reported) Morphine Sulfate (Ms Contin) 30 MG TABLET.ER 1 TAB PO TIDPRN SEVERE PAIN ( Reported) Multiple Vitamin (Multivitamins) 1 EACH TABLET 1 TAB PO DAILY SUPPLEMENT ( Reported) Oxycodone HCl/Acetaminophen (Percocet 5-325 MG Tablet) 5 MG-325 MG TABLET 1 TAB PO Q4-6 PRN PAIN Vitamin A Palmitate (Vitamin A) 10,000 UNIT CAPSULE 1 CAP PO DAILY SUPPLEMENT (Reported) Zolpidem Tartrate (Ambien) 5 MG TABLET 1 TAB PO QHS SLEEP (Reported) Triage Note: PT PRESENTS TO ER VIA AMBULANCE FOR SEVERE ABDOMINAL PAIN PT HAS A HX OF CHRONIC ABDOMINAL PAIN Triage Nurses Notes Reviewed? yes HPI: Patient presents for evaluation of a fever and abdominal pain. Patient states he had a fever of 100.5 this morning with an associated clear phlegm production/ cough. He describes abdominal pain as a severe diffuse tightness of the abdomen that has been more or less constant since onset. Nothing seems to make him feel better. He has had intermittent abdominal pain episodes similar to this over the years and "they have never been able to find out why". He states that this is a fairly typical episode for him and the underlying cause is generally a urinary tract infection when a cause can be determined. He states his urine appears a bit more cloudy in his catheter than usual. He states he has also had some mild nasal congestion but otherwise no sore throat no rashes no known ill contacts or recent travel. No associated nausea or or vomiting or diarrhea ( patient has a colostomy but there appears to be no change in the colostomy output). Past History Travel History Traveled to [place] past 21 day No Medical History Any Pertinent Medical History? 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 No Review of Systems Review of Systems Constitutional: Reports: no symptoms. EENTM: Reports: no symptoms. Respiratory: Reports: no symptoms. Cardiovascular: Reports: no symptoms. GI: Reports: abdominal pain. Genitourinary: Reports: no symptoms. Musculoskeletal: Reports: no symptoms. Skin: Reports: no symptoms. Neurological/Psychological: Reports: no symptoms. Hematologic/Endocrine: Reports: no symptoms. Immunologic/Allergic: Reports: no symptoms. All Other Systems: Reviewed and Negative Physical Exam Physical Exam General Appearance: well developed/nourished (history yesterday a regular 00) Gastrointestinal: see below Comments: Gen.: Well-nourished, well-developed, no acute respiratory distress. Head: Normocephalic, atraumatic. Eyes: Normal inspection bilaterally Ears: Normal inspection bilaterally Nose: Normal inspection Throat/mouth : Moist mucosa Neck: Supple, full range of motion, no goiter Heart: Regular rate and rhythm, no murmurs rubs or gallops Lungs: Clear to auscultation bilaterally with normal air entry Chest: Nontender Back: Normal range of motion Abdomen: Tense with diffuse tenderness, colostomy with abundant output. Cloudy- appearing urine in [place] catheter tubing. Extremities: Muscle wasting and spastic paralysis of the upper extremities, no spontaneous movement of the lower extremities. Neurologic: Cranial nerves grossly intact, speech is clear Skin: warm and dry Psychiatric: Calm, cooperative, no apparent delusions or hallucinations Core Measures ACS in differential dx? No Severe Sepsis Present: No Septic Shock Present: No Progress Differential Diagnosis: biliary colic, gastritis, pancreatitis, perforated viscous, SBO, UTI/pyelo Plan of Care: Orders Procedure Date/time Status CULTURE,URINE 08/16 1016 Active BLOOD CULTURE 08/16 1016 Active URINALYSIS 08/16 1016 Complete COMPREHENSIVE METABOLIC PANEL 08/16 1016 Complete CBC WITHOUT DIFFERENTIAL 08/16 1016 Complete Laboratory Tests 08/16/16 1151: Urinalysis LIGHT H, Urine Color YEL, Urine Clarity HAZY H, Urine pH 6.0, Ur Specific [place] 1.025, Urine Protein 30 H, Urine Ketones 15 H, Urine Nitrite POS H, Urine Bilirubin NEG, Urine Urobilinogen 0.2, Ur Leukocyte Esterase LARGE H, Ur Microscopic SEDIMENT EXAMINED, Urine RBC 3-5, Urine WBC PACKD H, Ur Epithelial Cells RARE, Urine Crystals 1+ CA OX H, Urine Bacteria MANY H, Urine Hemoglobin MOD H, Urine Glucose NEG 08/16/16 1038: Anion Gap 13, Estimated GFR > 60, BUN/Creatinine Ratio 18.3, Glucose 141 H, Calcium 10.0, Total Bilirubin 0.4, AST 9 L, ALT 20 L, Alkaline Phosphatase 154 H, Total Protein 7.3, Albumin 3.8, Globulin 3.5, Albumin/Globulin Ratio 1.1, CBC w Diff MAN DIFF ORDERED, RBC 4.72, MCV 80.1, MCH 25.6 L, RDW 15.4 H, MPV 6.8 L, Gran % 82.9 H, Lymphocytes % 10.6 L, Monocytes % 3.7, Eosinophils % 2.4, Basophils % 0.4, Absolute Granulocytes 13.4 H, Absolute Lymphocytes 1.7, Absolute Monocytes 0.6, Absolute Eosinophils 0.4, Absolute Basophils 0.1, Platelet Estimate INCREASED, Normocytic RBCs VERIFIED, Normochromic RBCs VERIFIED, PUBS MCHC 32.0 L Microbiology 08/16 1151 URINE ROUT: Urine Culture - RECD 08/16 1103 BLOOD: Blood Culture - RECD 08/16 1038 BLOOD: Blood Culture - RECD Diagnostic Imaging: Discussed w/RAD: Radiology Read. CXR Impression: PATIENT: SHANEL SIMMONS PRESENT AGE: 56 PATIENT ACCOUNT NO: [id number] : 58 LOCATION: [facility] ORDERING PHYSICIAN: SHA CARLSON MD SERVICE DATE: 08/16/16 EXAM TYPE: RAD - XRY-PORTABLE CHEST XRAY EXAMINATION: XR PORTABLE CHEST CLINICAL INFORMATION: Fever, cough. COMPARISON: Multiple prior examinations including chest x-ray 07/15/2016. TECHNIQUE: Portable AP view of the chest was obtained. FINDINGS: There is a persistent 5 mm nodular opacity in the right apex, unchanged compared to prior, likely reflecting scarring. Lungs otherwise clear. Cardiac silhouette, mediastinum and pulmonary vascularity are normal. Postsurgical changes in the lower cervical spine and dorsal spine, unchanged. IMPRESSION: No evidence of a right perihilar opacity. No acute disease. Nodular opacity unchanged compared with the examinations in 2016 but not clearly demonstrated on the January 2015 chest x-ray. Continue follow up as recommended on recent CT report June 2016. Neoplasm cannot be excluded. DICTATED BY: VERENA JASSO MD DATE/TIME DICTATED:08/16/161027 METEOROLOGICAL OBSERVER:ANDERS DATE/TIME TRANSCRIBED:1027 CONFIDENTIAL, DO NOT COPY WITHOUT APPROPRIATE AUTHORIZATION. < Electronically signed in Other Vendor System> SIGNED BY: VERENA JASSO MD 08/16/16 1108 Initial ED EKG: none Comments: Shanel states that his abdominal pain is similar to multiple prior episodes he feels that evaluation is not necessary other than checking for urinary tract infection. 08/16/2016 1:01:23 PM D/W DR MACE. He states that Shanel might of been admitted to [facility] most recently for urinary tract infection. He states he has become quite ill on occasion. Patient's case discussed with Abdi Negro MD who states he is very familiar with this patient having to care for him many times in the past. He feels that Shanel will always show an infected appearing urine given his chronic catheterization. In addition he typically has an elevated white blood cell count. Abdi Negro MD feels that the less and the spiking a high fever or has a significant elevation in his white blood cell count above baseline and that the urine should not be treated with antibiotics. Patient updated. Departure Departure Disposition: HOME OR SELF CARE Condition: Stable Clinical Impression Primary Impression: Abdominal pain Qualifiers: Abdominal location: generalized Qualified Code: R10.84 - Generalized abdominal pain Secondary Impressions: Paraplegia, Urinary catheter in place Referrals: TATYANA MACE MD (PCP/Family) Additional Instructions: Follow-up with Dr. Mace this week for reevaluation. Monitor your temperatures twice daily and return if you spike a fever or if there is any other concerns or worsening. We will contact you if your blood cultures return positive and which case she will need to return to the emergency department for reevaluation. Departure Forms: Customer Survey General Discharge Information
[2016-08-16 10:45] LABS: ABSOLUTE BASOPHIL COUNT 0.1 /CUMM (0.0-0.2); ABSOLUTE EOSINOPHIL COUNT 0.4 /CUMM (0.0-0.7); ABSOLUTE GRANULOCYTE CT 13.4 /CUMM (1.4-6.5); ABSOLUTE LYMPH COUNT 1.7 /CUMM (1.2-3.4); ABSOLUTE MONOCYTE COUNT 0.6 /CUMM (0.10-0.60); BASOPHIL % 0.4 % (0.0-2.0); EOSINOPHIL % 2.4 % (0-5); GRANULOCYTE % 82.9 % (42.2-75.2); HEMATOCRIT 37.8 % (42-52); MEAN CORPUSCULAR HGB 25.6 PG (27.0-31.0); MEAN CORPUSCULAR VOLUME 80.1 FL (80.0-94.0); MEAN PLATELET VOLUME 6.8 FL (7.4-10.4); PLATELET COUNT 709 /CUMM (130-400); RBC DISTRIBUTION WIDTH 15.4 % (11.5-14.5); RED BLOOD CELL CT 4.72 /CUMM (4.70-6.10); WHITE BLOOD CELL COUNT 16.1 /CUMM (4.8-10.8)
--- NOTE | 2016-08-16 11:08 | RADIOLOGY REPORT ---
EXAMINATION: XR PORTABLE CHEST CLINICAL INFORMATION: Fever, cough. COMPARISON: Multiple prior examinations including chest x-ray 07/15/2016. TECHNIQUE: Portable AP view of the chest was obtained. FINDINGS: There is a persistent 5 mm nodular opacity in the right apex, unchanged compared to prior, likely reflecting scarring. Lungs otherwise clear. Cardiac silhouette, mediastinum and pulmonary vascularity are normal. Postsurgical changes in the lower cervical spine and dorsal spine, unchanged. IMPRESSION: No evidence of a right perihilar opacity. No acute disease. Nodular opacity unchanged compared with the examinations in 2016 but not clearly demonstrated on the January 2015 chest x-ray. Continue follow up as recommended on recent CT report June 2016. Neoplasm cannot be excluded.
[2016-08-16 15:10] VITALS: BP 145/80
== END 2016-08-16 15:00 ==
LOC: ERH 09:27
PROVIDERS: Emergency Medicine
DX: R10.9 Unspecified abdominal pain (principal); G82.20 Paraplegia, unspecified
CPT/HCPCS: 81001; 87040; 87086; 96374; 96375; 96376; J1885; J7040

== ENCOUNTER 2016-08-20 12:40 | Emergency (ER) | payer OTHER, MEDICARE ==
--- NOTE | 2016-08-20 12:54 | ED GI/GU/ABDOMINAL COMPLAINT ---
History of Present Illness General Chief Complaint: Abdominal Pain/Flank Pain Stated Complaint: BIBA FOR ABD PAIN Source: patient, old records, EMS Exam Limitations: no limitations Vital Signs & Intake/Output Vital Signs & Intake/Output Vital Signs Date Time Temp Pulse Resp B/P Pulse O2 O2 Flow FiO2 Ox Delivery Rate 08/20 1511 98.5 90 18 124/79 96 08/20 1322 Room Air 08/20 1248 97.9 74 16 167/85 99 Room Air Allergies Coded Allergies: No Known Drug Allergies (03/27/16) Reconcile Medications Amitriptyline HCl 25 MG TABLET 1 TAB PO QHS SLEEP (Reported) Ascorbic Acid (Vitamin C) 1,000 MG TABLET 1 TAB PO DAILY SUPPLEMENT (Reported ) Aspirin (Ecotrin*) 81 MG TABLET.DR 1 TAB PO DAILY HEART HEALTH (Reported) Cyclobenzaprine HCl 10 MG TABLET 1 TAB PO TID PRN SPASMS (Reported) Diazepam (Valium) 2 MG TABLET 1 TAB PO TID PRN MUSCLE SPASMS/ANXIETY ( Reported) Gabapentin (Unknown Strength) CAPSULE 300 MG PO BID PAIN (Reported) Hydromorphone HCl (Dilaudid) 2 MG TABLET 1 TAB PO BIDP PRN pain Hydromorphone HCl (Dilaudid) 2 MG TABLET 1 TAB PO BIDP PRN PAIN Metaxalone (Skelaxin) 800 MG TABLET 1 TAB PO TID PRN SPASM Midodrine HCl 5 MG TABLET 3 TAB PO BID HYPOTENSION (Reported) Mirtazapine (Remeron) 30 MG TABLET 1 TAB PO QHS SLEEP (Reported) Morphine Sulfate 15 MG TABLET 1 TAB PO Q6 ABDOMINAL PAIN (Reported) Morphine Sulfate (Ms Contin) 30 MG TABLET.ER 1 TAB PO TIDPRN SEVERE PAIN ( Reported) Multiple Vitamin (Multivitamins) 1 EACH TABLET 1 TAB PO DAILY SUPPLEMENT ( Reported) Oxycodone HCl/Acetaminophen (Percocet 5-325 MG Tablet) 5 MG-325 MG TABLET 1 TAB PO Q4-6 PRN PAIN Vitamin A Palmitate (Vitamin A) 10,000 UNIT CAPSULE 1 CAP PO DAILY SUPPLEMENT (Reported) Zolpidem Tartrate (Ambien) 5 MG TABLET 1 TAB PO QHS SLEEP (Reported) Triage Note: BIBA FROM HOME FOR ABD PAIN AND FEVER AT HOME SEEN HERE TUESDAY FOR SAME. Triage Nurses Notes Reviewed? yes Onset: Gradual Duration: week(s): (1), constant Timing: recent history Quality/Severity: aching, cramping Severity Numbers: 7 Location: generalized abdomen Radiation: no radiation Activities at Onset: none Prior Abdominal Problems: similar symptoms No Modifying Factors: none Associated Symptoms: denies HPI: 56-year-old paraplegic male well-known to this ER presents to the ER today brought in by ambulance complaining of a continuation of his chronic generalized abdominal pain that has been going on for the past 1 week associated with subjective fevers. The patient was seen here 4 days ago for the same symptoms at which time he had an unremarkable workup. He has not been taking anything for his pain. He is not currently on any antibiotics the patient has a history of indwelling suprapubic catheter.. He denies any rashes to his skin. Decreased appetite secondary to pain. There are no modifying factors or associated symptoms otherwise. No nausea no vomiting no diarrhea no chest pain or shortness of breath (NILS VIDAL) Past History Medical History Any Pertinent Medical History? 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 No (NILS VIDAL) Review of Systems Review of Systems Constitutional: Reports: see HPI. All Other Systems: Reviewed and Negative Comments Review of systems: See HPI, All other systems negative. Constitutional, no chills no fever, no malaise HEENT: No visual changes no sore throat no congestion, Cardiovascular: No chest pain , no palpitation , Skin, no rashes, no change in skin Respiratory: No dyspnea no cough no sputum GI: No nausea no vomiting, no diarrhea, : No dysuria Muscle skeletal: No joint pain,, no back pain, no neck pain, Neurologic: No numbness no headache Psych: No stress Heme/endocrine: No bruising no bleeding Immunology: No lymphadenopathy, (NILS VIDAL) Physical Exam Physical Exam General Appearance: well developed/nourished, alert, awake Gastrointestinal: soft, tenderness (mild diffuse tenderness) Comments: Cachectic male in no acute distress HEENT: Normal EENT exam; PERRL, EOMI, HEAD is atraumatic. moist mucous membranes. Neck: Supple, no lymphadenopathy, normal range of motion without pain or tenderness Back: Nontender, no CVA tenderness. Full range of motion Cardiovascular: Regular rate and rhythms no murmurs rubs Respiratory: No respiratory distress. Patient speaking in full complete sentences. Breath sounds clear to auscultation bilaterally: NO W/R/R Abdomen: Soft, nontender nondistended, no appreciable organomegaly. Normal bowel sounds. No rebound/guarding, Extremity: No edema, full range of motion of upper extremities, Neuro: Alert oriented x3, motor sensory normal There were no obvious focal neurologic abnormalities. Skin: No appreciable rash on exposed skin, skin is warm and dry. Psych: Mood and affect is normal, memory and judgment is normal. Core Measures ACS in differential dx? No Severe Sepsis Present: No Septic Shock Present: No (NILS VIDAL) Progress Differential Diagnosis: diverticulitis, gastritis, pancreatitis, peptic ulcer, PUD/GERD, perforated viscous, UTI/pyelo, pneumonia Plan of Care: Orders Procedure Date/time Status CULTURE,URINE 08/20 1248 Active URINALYSIS 08/20 1248 Complete COMPREHENSIVE METABOLIC PANEL 08/20 1248 Complete CBC WITHOUT DIFFERENTIAL 08/20 1248 Complete Laboratory Tests 08/20/16 1318: Urinalysis MOD H, Urine Color YEL, Urine Clarity HAZY H, Urine pH 6.0, Ur Specific [place] 1.025, Urine Protein 100 H, Urine Ketones NEG, Urine Nitrite POS H, Urine Bilirubin NEG, Urine Urobilinogen 0.2, Ur Leukocyte Esterase LARGE H, Ur Microscopic SEDIMENT EXAMINED, Urine RBC 1-3, Urine WBC PACKD H, Ur Epithelial Cells RARE, Urine Crystals 1+ CA OX H, Urine Bacteria MANY H, Urine Hemoglobin SMALL H, Urine Glucose NEG 08/20/16 1309: Anion Gap 13, Estimated GFR > 60, BUN/Creatinine Ratio 22.9, Glucose 120 H, Calcium 10.1, Total Bilirubin 0.3, AST 10 L, ALT 18 L, Alkaline Phosphatase 135 H, Total Protein 7.3, Albumin 3.8, Globulin 3.5, Albumin/Globulin Ratio 1.1 , CBC w Diff MAN DIFF ORDERED, RBC 4.92, MCV 80.6, MCH 25.4 L, RDW 15.4 H, MPV 6.9 L, Gran % 84.6 H, Lymphocytes % 9.8 L, Monocytes % 2.6, Eosinophils % 3.0 , Basophils % 0 L, Absolute Granulocytes 13.4 H, Absolute Lymphocytes 1.5, Absolute Monocytes 0.4, Absolute Eosinophils 0.5, Absolute Basophils 0, Platelet Estimate INCREASED, Anisocytosis 1+, PUBS MCHC 31.5 L Microbiology 08/20 1318 URINE ROUT: Urine Culture - RECD Labs ordered old records reviewed including the patient's previous chest x-ray from 4 days ago as well as Dr. flores conversation that he had with Abdi Chaudhary MD regarding the patient, urine culture was reviewed case d/w dr parrish as well as dr chaudhary whom I reviewed the patient's previous urine culture and his lab work today the patient clinically appears well and nontoxic appearing. He again stressed that there is no need for antibiotics or admission at this time, patient is colonized with similar urine cultures in the past. His white blood cell count has trended downward from his previous visit 4 days ago and is chronically at baseline elevated. The patient will be provided pain medicine to go home with I discussed with him at length all of his results and my discussions I had with ID (NILS VIDAL) Initial ED EKG: none (NILS VIDAL) Departure Departure Time of Disposition: 1436 Disposition: HOME OR SELF CARE Condition: Stable Clinical Impression Primary Impression: Abdominal pain Referrals: TATYANA MACE MD (PCP/Family) SANTO RAMOS,PILO Lubin Additional Instructions: Follow-up with your primary care physician as well as gastric urologist Dr. Santiago on Tuesday. Dilaudid for breakthrough pain Departure Forms: Customer Survey General Discharge Information Prescriptions: Current Visit Scripts Hydromorphone HCl (Dilaudid) 1 TAB PO BIDP PRN pain #12 TAB (NILS VIDAL) PA/FINANCE ASSOCIATE Co-Sign Statement Statement: ED Attending supervision documentation- [] I saw and evaluated the patient. I have also reviewed all the pertinent lab results and diagnostic results. I agree with the findings and the plan of care as documented in the PA's/FINANCE ASSOCIATE's documentation. [X] I have reviewed the ED Record and agree with the PA's/FINANCE ASSOCIATE's documentation. [] Additions or exceptions (if any) to the PAs/FINANCE ASSOCIATE's note and plan are summarized below: [] (SHA PARRISH DO)
[2016-08-20 13:21] LABS: ABSOLUTE BASOPHIL COUNT 0 /CUMM (0.0-0.2); ABSOLUTE EOSINOPHIL COUNT 0.5 /CUMM (0.0-0.7); ABSOLUTE GRANULOCYTE CT 13.4 /CUMM (1.4-6.5); ABSOLUTE LYMPH COUNT 1.5 /CUMM (1.2-3.4); ABSOLUTE MONOCYTE COUNT 0.4 /CUMM (0.10-0.60); BASOPHIL % 0 % (0.0-2.0); GRANULOCYTE % 84.6 % (42.2-75.2); HEMATOCRIT 39.7 % (42-52); MEAN CORPUSCULAR HGB 25.4 PG (27.0-31.0); MEAN CORPUSCULAR HGB CONC 31.5 G/DL (33.0-37.0); MEAN CORPUSCULAR VOLUME 80.6 FL (80.0-94.0); MEAN PLATELET VOLUME 6.9 FL (7.4-10.4); PLATELET COUNT 780 /CUMM (130-400); RBC DISTRIBUTION WIDTH 15.4 % (11.5-14.5); RED BLOOD CELL CT 4.92 /CUMM (4.70-6.10); WHITE BLOOD CELL COUNT 15.8 /CUMM (4.8-10.8)
[2016-08-20] MEDS ORDERED: DILAUDID2 M1 PO (14:38)
[2016-08-20 15:11] VITALS: BP 124/79
== END 2016-08-20 15:52 ==
LOC: ERH 12:40
PROVIDERS: Physician Assistant Medical
DX: R10.84 Generalized abdominal pain (principal); R50.9 Fever, unspecified
CPT/HCPCS: 81001; 87086; 96372

== ENCOUNTER 2016-08-22 16:27 | Emergency (ER) | payer OTHER, MEDICARE ==
[~2016-08-22] VITALS: Ht 172.7 cm; Wt 59.0 kg
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
--- NOTE | 2016-08-22 17:40 | RADIOLOGY REPORT ---
EXAMINATION: XR CHEST CLINICAL INFORMATION: Cough and fever. Assess for pneumonia. COMPARISON: Chest imaging, most recent 08/16/2016. TECHNIQUE: 2 views of the chest were obtained. FINDINGS: The lungs are well expanded. No new consolidation, pleural effusion, pulmonary edema, or pneumothorax. Nodular opacity in the right upper lung is redemonstrated, not significantly changed compared to exam 08/16/2016. Linear opacity at the left lung base most likely represents scarring. No mediastinal widening. Cervical and thoracic spinal hardware noted. IMPRESSION: 1. No significant interval change compared to recent radiography 08/16/2016. 2. Persistent small nodular opacity at the right upper lobe. Recommend continued follow-up.
[2016-08-22 18:16] LABS: ABSOLUTE BASOPHIL COUNT 0.1 /CUMM (0.0-0.2); ABSOLUTE EOSINOPHIL COUNT 0.3 /CUMM (0.0-0.7); ABSOLUTE GRANULOCYTE CT 10.9 /CUMM (1.4-6.5); ABSOLUTE LYMPH COUNT 1.9 /CUMM (1.2-3.4); ABSOLUTE MONOCYTE COUNT 0.7 /CUMM (0.10-0.60); BASOPHIL % 0.6 % (0.0-2.0); EOSINOPHIL % 2.2 % (0-5); GRANULOCYTE % 78.5 % (42.2-75.2); MEAN CORPUSCULAR HGB 25.3 PG (27.0-31.0); MEAN CORPUSCULAR HGB CONC 31.5 G/DL (33.0-37.0); MEAN CORPUSCULAR VOLUME 80.3 FL (80.0-94.0); RBC DISTRIBUTION WIDTH 15.9 % (11.5-14.5); RED BLOOD CELL CT 3.84 /CUMM (4.70-6.10); WHITE BLOOD CELL COUNT 13.9 /CUMM (4.8-10.8)
[2016-08-22 18:22] LABS: PLATELET COUNT 742 /CUMM (130-400)
[2016-08-22 18:23] LABS: HEMATOCRIT 30.9 % (42-52)
--- NOTE | 2016-08-22 20:33 | CT SCAN REPORT ---
EXAMINATION: CT ABDOMEN AND PELVIS WITH CONTRAST CLINICAL INFORMATION: Abdominal pain and fever. Drop in hematocrit. Evaluate for intraperitoneal hematoma. COMPARISON: CT abdomen and pelvis without contrast 04/22/2016. Multiple prior CTs of the abdomen and pelvis dating back to 10/14/2015. TECHNIQUE: Multidetector volumetric imaging was performed of the abdomen and pelvis before and after the IV administration of 94 mL of Optiray 320 intravenous contrast. Sagittal and coronal reformatted images were obtained on the technologist's workstation. DLP: 282 mGy-cm FINDINGS: LUNG BASES: Minimal dependent left basilar atelectasis. No pleural or pericardial effusions. LIVER, GALLBLADDER, AND BILIARY TREE: The liver is normal in size, shape, and attenuation. No focal hepatic lesion or biliary ductal dilatation is present. The gallbladder is unremarkable with no evidence of radiopaque gallstones, gallbladder wall thickening, or obvious pericholecystic inflammatory changes. PANCREAS: Unremarkable. SPLEEN: Unremarkable. ADRENAL GLANDS: Unremarkable. KIDNEYS AND URETERS: The kidneys are normal in size and enhance homogeneously, without solid parenchymal lesions. Redemonstrated are small bilateral simple renal cortical cysts visualized measuring up to 1.0 cm within the right kidney. There is no appreciable nephrolithiasis or hydroureteronephrosis of either kidney or renal collecting system. No ureteral stones are identified. BLADDER: A suprapubic catheter is in place within the urinary bladder. Circumferential bladder wall thickening and submucosal edema is identified. This finding is nonspecific. However, superimposed infection or inflammation of the urinary bladder cannot be excluded. GASTROINTESTINAL TRACT: Redemonstrated are postsurgical changes related to partial right hemicolectomy and right lower quadrant ostomy. There is a moderate amount of retained stool throughout the colon. Feculent material within loops of small bowel is entirely nonspecific but can be seen in the setting of delayed intestinal transit. Abdominal and pelvic bowel loops are normal in caliber, without findings indicative of small bowel obstruction or ileus. There is no circumferential bowel wall thickening with surrounding inflammatory changes to suggest an underlying infectious or inflammatory enterocolitis. No intraperitoneal or retroperitoneal hematoma is identified. ABDOMINAL WALL: As noted above, there is a right lower quadrant ostomy. LYMPH NODES: No significant abdominal or pelvic adenopathy. VASCULAR: The IVC appears flattened. The abdominal aorta and its branching vessels are patent and normal in course and caliber, without aneurysmal dilatation. PELVIC VISCERA: Unremarkable. OSSEOUS STRUCTURES: No acute osseous abnormality. Normal alignment of the imaged thoracolumbar spine. Redemonstrated is soft tissue thickening overlying the S3 vertebral body, corresponding to the site of the patient's prior decubitus ulcer. No cortical destruction or significant periosteal reaction of the cut margin of the sacrum is identified. IMPRESSION: 1. Stable postsurgical changes related to partial right hemicolectomy and right lower quadrant ostomy. Normal caliber of abdominal and pelvic bowel loops, without findings indicative of small bowel obstruction or ileus. 2. No intraperitoneal or retroperitoneal hematoma. 3. Incidental flattening of the IVC. This finding is entirely nonspecific but can be seen in the setting of dehydration or hypotension. Correlate with vital signs. 4. Suprapubic bladder catheter. Circumferential bladder wall thickening is nonspecific. A superimposed infectious or inflammatory cystitis cannot be excluded in the appropriate clinical setting. Consider correlation with urinalysis.
[2016-08-22 22:21] VITALS: BP 120/75
[2016-08-22] MEDS ORDERED: PERCOCET 5-3251 EACH PO (22:33)
== END 2016-08-22 22:54 ==
LOC: ERH 16:27
PROVIDERS: Emergency Medicine
DX: R10.9 Unspecified abdominal pain (principal); G89.29 Other chronic pain; R05 Cough
CPT/HCPCS: 74177; 81001; 87040; 96374; 96376

== ENCOUNTER 2016-09-16 20:06 | Emergency (ER) | payer OTHER, MEDICARE ==
--- NOTE | 2016-09-16 20:35 | ED GI/GU/ABDOMINAL COMPLAINT ---
History of Present Illness General Chief Complaint: Abdominal Pain/Flank Pain Stated Complaint: BIBA ABD PAIN Source: patient, family, old records Exam Limitations: no limitations Vital Signs & Intake/Output Vital Signs & Intake/Output Vital Signs Date Time Temp Pulse Resp B/P Pulse O2 O2 Flow FiO2 Ox Delivery Rate 09/165 138/86 09/16 2029 98.6 54 18 184/96 96 Room Air Room Air Allergies Coded Allergies: No Known Drug Allergies (03/27/16) Reconcile Medications Amitriptyline HCl 25 MG TABLET 1 TAB PO QHS SLEEP (Reported) Ascorbic Acid (Vitamin C) 1,000 MG TABLET 1 TAB PO DAILY SUPPLEMENT (Reported ) Aspirin (Ecotrin*) 81 MG TABLET.DR 1 TAB PO DAILY HEART HEALTH (Reported) Cyclobenzaprine HCl 10 MG TABLET 1 TAB PO TID PRN SPASMS (Reported) Diazepam (Valium) 2 MG TABLET 1 TAB PO TID PRN MUSCLE SPASMS/ANXIETY ( Reported) Gabapentin (Unknown Strength) CAPSULE 300 MG PO BID PAIN (Reported) Midodrine HCl 5 MG TABLET 3 TAB PO TID HYPOTENSION (Reported) Mirtazapine (Remeron) 30 MG TABLET 1 TAB PO QHS SLEEP (Reported) Multiple Vitamin (Multivitamins) 1 EACH TABLET 1 TAB PO DAILY SUPPLEMENT ( Reported) Oxycodone HCl/Acetaminophen (Percocet 5-325 MG Tablet) 5 MG-325 MG TABLET 1-2 TAB PO Q6P PRN pain Vitamin A Palmitate (Vitamin A) 10,000 UNIT CAPSULE 1 CAP PO DAILY SUPPLEMENT (Reported) Zolpidem Tartrate (Ambien) 5 MG TABLET 1 TAB PO QHS SLEEP (Reported) Triage Note: 56 YEAR OLD MALE BIBA FROM HOME C/O ABD PAIN X2 DAYS WITH NO RELIEF FROM HOME PAIN MEDICATIONS. Triage Nurses Notes Reviewed? yes Onset: Abrupt Duration: day(s):, constant, continues in ED Timing: recent history Quality/Severity: moderate, sharpness, severe Location: generalized abdomen Radiation: no radiation Activities at Onset: none No Modifying Factors: none HPI: 56-year-old male comes into the emergency room with complaints of his chronic abdominal pain. Patient has chronic abdominal pain with chronic urinary tract infections. Patient reports increased pain tonight. No fever no vomiting. Patient is a paraplegic. Denies any new associated symptoms. Pain is consistent with previous pain. 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 (SY QUINTERO) Past History Travel History Traveled to [place] past 21 day No Medical History Any Pertinent Medical History? 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 No (SY QUINTERO) Review of Systems Review of Systems Constitutional: Reports: no symptoms. EENTM: Reports: no symptoms. Respiratory: Reports: no symptoms. Cardiovascular: Reports: no symptoms. GI: Reports: see HPI. Genitourinary: Reports: see HPI. Musculoskeletal: Reports: no symptoms. Skin: Reports: no symptoms. Neurological/Psychological: Reports: no symptoms. Hematologic/Endocrine: Reports: no symptoms. Immunologic/Allergic: Reports: no symptoms. All Other Systems: Reviewed and Negative (SY QUINTERO) Physical Exam Physical Exam General Appearance: well developed/nourished, no apparent distress, alert Head: atraumatic, normal appearance Eyes: Bilateral: normal appearance, EOMI. Ears, Nose, Throat, Mouth: hearing grossly normal, moist mucous membrane Neck: normal inspection, full range of motion Respiratory: normal breath sounds, no respiratory distress Cardiovascular: regular rate/rhythm Gastrointestinal: soft Back: normal inspection Extremities: normal range of motion Neurologic/Psych: awake, alert, oriented x 3, normal gait, normal mood/affect Skin: intact, normal color Core Measures ACS in differential dx? No Severe Sepsis Present: No Septic Shock Present: No (SY QUINTERO) Progress Differential Diagnosis: biliary colic, bowel obstruction, orchitis, pancreatitis , prostatitis, peptic ulcer, PUD/GERD, perforated viscous, pyelonephritis, ureterolithiasis, urethritis, UTI/pyelo Plan of Care: Orders Procedure Date/time Status CULTURE,URINE 09/16 2044 Active LIPASE 09/16 2024 Complete COMPREHENSIVE METABOLIC PANEL 09/16 2024 Complete CBC WITHOUT DIFFERENTIAL 09/16 2024 Complete Laboratory Tests 09/16/162034: Anion Gap 14, Estimated GFR > 60, BUN/Creatinine Ratio 20.0, Glucose 103 H, Calcium 10.2, Total Bilirubin 0.6, AST 11 L, ALT 21, Alkaline Phosphatase 150 H, Total Protein 7.6, Albumin 4.0, Globulin 3.6, Albumin/Globulin Ratio 1.1, Lipase 38, CBC w Diff NO MAN DIFF REQ, RBC 4.42 L, MCV 80.4, MCH 25.7 L, RDW 15.8 H, MPV 6.8 L, Gran % 74.2, Lymphocytes % 17.1 L, Monocytes % 4.2, Eosinophils % 4.2, Basophils % 0.3, Absolute Granulocytes 11.0 H, Absolute Lymphocytes 2.5, Absolute Monocytes 0.6, Absolute Eosinophils 0.6, Absolute Basophils 0, PUBS MCHC 32.0 L Microbiology 09/16 2104 URINE ROUT: Urine Culture - RECD Initial ED EKG: none Comments: 09/16/2016 10:48:44 PM Patient clinically looks well. Patient feels better after pain medication. Seen here multiple times for the same in the past. Patient has had multiple CAT scans. A do not feel CAT scan is necessary at this time. Chronically elevated white count. Patient understands and agrees with plan of care. Patient feels better and ready to be discharged. Patient has multi drug resistant bacteria in his urine. (SY QUINTERO) Departure Departure Disposition: HOME OR SELF CARE Condition: Stable Clinical Impression Primary Impression: Abdominal pain Referrals: TATYANA MACE MD (PCP/Family) Additional Instructions: Please go over all results of today's visit with your primary care doctor. Contact your primary care doctor to let them know you were here in the emergency room. There may be nonspecific findings which may not be related to your visit today here in the emergency room but may require further evaluation and chronic monitoring by your primary care doctor. If you had a laceration today the chance of foreign body always remains. You should follow-up with your primary care doctor for recheck in 3-5 days for a wound check. If you had an x-ray done there is a chance that a fracture could have been missed on initial read and you should follow-up with your primary care doctor for repeat x-rays if symptoms persist. If your blood pressure was elevated here in the emergency room please have rechecked by her primary care doctor within the next 48 hours by your primary care doctor. If you were prescribed a narcotic here in the emergency room or any type of controlled substances you're not allowed to drive while taking this medication or operate any type of heavy machinery. Narcotics can make you feel lightheaded dizziness nausea and can cause constipation. You may need to berry picker a stool softener. Thank you for choosing [facility] emergency room. Please return to the emergency room immediately if you have any other concerns worsening of symptoms. Departure Forms: Customer Survey General Discharge Information Prescriptions: Current Visit Scripts Oxycodone HCl/Acetaminophen (Percocet 5-325 MG Tablet) 1-2 TAB PO Q6P PRN pain #8 TAB (SY QUINTERO) PA/CATERING SALES MANAGER Co-Sign Statement Statement: ED Attending supervision documentation- x I saw and evaluated the patient. I have also reviewed all the pertinent lab results and diagnostic results. I agree with the findings and the plan of care as documented in the PA's/CATERING SALES MANAGER's documentation. [] I have reviewed the ED Record and agree with the PA's/CATERING SALES MANAGER's documentation. [] Additions or exceptions (if any) to the PAs/CATERING SALES MANAGER's note and plan are summarized below: [] (JERI RAMOS,MORENA)
[2016-09-16 20:52] LABS: ABSOLUTE BASOPHIL COUNT 0 /CUMM (0.0-0.2); ABSOLUTE EOSINOPHIL COUNT 0.6 /CUMM (0.0-0.7); ABSOLUTE LYMPH COUNT 2.5 /CUMM (1.2-3.4); ABSOLUTE MONOCYTE COUNT 0.6 /CUMM (0.10-0.60); BASOPHIL % 0.3 % (0.0-2.0); EOSINOPHIL % 4.2 % (0-5); GRANULOCYTE % 74.2 % (42.2-75.2); HEMATOCRIT 35.5 % (42-52); MEAN CORPUSCULAR HGB 25.7 PG (27.0-31.0); MEAN CORPUSCULAR VOLUME 80.4 FL (80.0-94.0); MEAN PLATELET VOLUME 6.8 FL (7.4-10.4); PLATELET COUNT 715 /CUMM (130-400); RBC DISTRIBUTION WIDTH 15.8 % (11.5-14.5); RED BLOOD CELL CT 4.42 /CUMM (4.70-6.10); WHITE BLOOD CELL COUNT 14.8 /CUMM (4.8-10.8)
[2016-09-16] MEDS ORDERED: PERCOCET 5-3251 EACH PO (21:58)
[2016-09-16 22:05] VITALS: BP 138/86
== END 2016-09-16 22:11 ==
LOC: ERH 20:06
PROVIDERS: Physician Assistant Medical
DX: R10.84 Generalized abdominal pain (principal)
CPT/HCPCS: 87086; 96372

== ENCOUNTER 2016-10-10 19:58 | Inpatient (IN) | payer OTHER, MEDICARE ==
[~2016-10-10] VITALS: Ht 175.3 cm; Wt 59.0 kg
--- NOTE | 2016-10-10 20:00 | NUR ---
BIBA FOR URI SYMPTOMS, GENERALIZED WEAKNESS, COUGH. SPO2 BY EMS 88% ON RA, 92% ON 2LNC. PT ALSO REPORTS ?UTI. DR. FERNANDEZ AT BEDSIDE UPON ARRIVAL TO
--- NOTE | 2016-10-10 20:07 | ED GENERAL ADULT ---
History of Present Illness General Chief Complaint: General Adult Stated Complaint: BIBA COUGH, MULT COMPLAINTS Source: patient Exam Limitations: no limitations Vital Signs & Intake/Output Vital Signs & Intake/Output Vital Signs Date Time Temp Pulse Resp B/P B/P Pulse O2 O2 Flow FiO2 Mean Ox Delivery Rate 10/11 020 98.8 88 18 122/68 97 Room Air 10/11 0034 97.6 89 18 118/84 95 Nasal 2.0L Cannula 10/104 98 Nasal 2.0L Cannula 10/10 2000 97.4 86 16 126/76 88 Room Air ED Intake and Output 10/11 0000 10/10 1200 Intake Total Output Total 200 Balance -200 Output, Urine 200 Patient 130 lb Weight Weight Reported by Patient Measurement Method Allergies Coded Allergies: No Known Drug Allergies (03/27/16) Reconcile Medications Amitriptyline HCl 25 MG TABLET 1 TAB PO QHS SLEEP (Reported) Ascorbic Acid (Vitamin C) 1,000 MG TABLET 1 TAB PO DAILY SUPPLEMENT (Reported ) Aspirin (Ecotrin*) 81 MG TABLET.DR 1 TAB PO DAILY HEART HEALTH (Reported) Cyclobenzaprine HCl 10 MG TABLET 1 TAB PO TID PRN SPASMS (Reported) Diazepam (Valium) 2 MG TABLET 1 TAB PO TID PRN MUSCLE SPASMS/ANXIETY ( Reported) Gabapentin (Unknown Strength) CAPSULE 300 MG PO BID PAIN (Reported) Midodrine HCl 5 MG TABLET 3 TAB PO TID HYPOTENSION (Reported) Mirtazapine (Remeron) 30 MG TABLET 1 TAB PO QHS SLEEP (Reported) Multiple Vitamin (Multivitamins) 1 EACH TABLET 1 TAB PO DAILY SUPPLEMENT ( Reported) Vitamin A Palmitate (Vitamin A) 10,000 UNIT CAPSULE 1 CAP PO DAILY SUPPLEMENT (Reported) Zolpidem Tartrate (Ambien) 5 MG TABLET 1 TAB PO QHS SLEEP (Reported) Triage Note: BIBA FOR URI SYMPTOMS, GENERALIZED WEAKNESS, COUGH. SPO2 BY EMS 88% ON RA, 92% ON 2LNC. PT ALSO REPORTS ?UTI. DR. FERNANDEZ AT BEDSIDE UPON ARRIVAL TO Triage Nurses Notes Reviewed? yes Onset: Abrupt Duration: hour(s): Timing: single episode today Injury Environment: home Severity: moderate Modifying Factors: Improves With: rest. Associated Symptoms: "urine looks infected" HPI: 56 yo gentleman, h/o ostomy, indwelling supra-pubic tube, presets with 1 day of cough productive of phlegm, foul smelling urine, feeling weak, with decreased oral intake. He denies fever, chills, nausea, vomiting diarrhea. Past History Travel History Traveled to [place] past 21 day No Medical History Any Pertinent Medical History? 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 No Review of Systems Review of Systems Constitutional: Reports: no symptoms. EENTM: Reports: no symptoms. Respiratory: Reports: no symptoms. Cardiovascular: Reports: no symptoms. GI: Reports: no symptoms. Genitourinary: Reports: no symptoms. Musculoskeletal: Reports: no symptoms. Skin: Reports: no symptoms. Neurological/Psychological: Reports: no symptoms. Hematologic/Endocrine: Reports: no symptoms. Immunologic/Allergic: Reports: no symptoms. All Other Systems: Reviewed and Negative Physical Exam Physical Exam General Appearance: well developed/nourished, mild distress Head: atraumatic, normal appearance Eyes: Bilateral: normal appearance, PERRL, EOMI. Ears, Nose, Throat: normal pharynx, normal ENT inspection, hearing grossly normal Neck: normal inspection, supple, full range of motion Respiratory: normal breath sounds, chest non-tender, no respiratory distress, quiet respiration, lungs clear Cardiovascular: regular rate/rhythm Gastrointestinal: normal bowel sounds, soft, non-tender, no organomegaly Back: normal inspection, normal range of motion Extremities: normal inspection, normal capillary refill, normal range of motion, no edema Neurologic/Psych: no motor/sensory deficits, awake, alert, oriented x 3 Skin: intact, normal color, warm/dry Core Measures ACS in differential dx? No CVA/TIA Diagnosis: No Severe Sepsis Present: No Septic Shock Present: No Progress Differential Diagnoses I considered the following diagnoses in my evaluation of the patient: uti, pneumonia, sepsis vs other. Plan of Care: Orders Procedure Date/time Status Regular Diet 10/11 B Active CBC WITHOUT DIFFERENTIAL 10/11 06 Active BASIC ELECTROLYTES PLUS BUN&CR 10/11 06 Active Drains/Tubes 10/11 024 Active Wound Care/Dressing 10/11 024 Active Turn and Reposition 10/11 024 Active Skin Integrity Protocol 10/11 024 Active Skin/Pressure Ulcer Assess (Sk 10/11 0246 Active Vital Signs 10/11 0242 Active Teach/Educate 10/11 024 Active Pain Treatment and Response 10/11 024 Active Nutritional Intake, Monitor 10/11 024 Active Isolation 10/11 0242 Active Intake & Output 10/11 0242 Active Patient Care Conference 10/11 0242 Active Activity/Ambulation 10/11 0242 Active Pathway - chart 10/11 0156 Active Pathway - chart 10/11 0100 Active House Staff 10/11 0100 Active Lab Add-on Test 10/11 UNK Active Patient Data 10/10 2334 Active Saline Lock 10/10 2322 Active Misc Message 10/10 2322 Active ED Holding Orders 10/10 2322 Active Admit to inpatient 10/10 2322 Active Vital Signs 10/10 2322 Active Code Status 10/10 2322 Active LACTIC ACID 10/10 2311 Active Intake & Output 10/10 2234 Active C-REACTIVE PROTEIN 10/10 2016 Complete BLOOD CULTURE 10/10 2014 Active CULTURE,URINE 10/10 2010 Active BLOOD CULTURE 10/10 2010 Active URINALYSIS 10/10 2010 Complete TROPONIN LEVEL 10/10 2010 Complete LACTIC ACID 10/10 2010 Complete COMPREHENSIVE METABOLIC PANEL 10/10 2010 Complete CBC WITHOUT DIFFERENTIAL 10/10 2010 Complete Current Medications Sig/Nelson Start time Last Medication Dose Stop Time Status Admin Ascorbic Acid 1,000 MG DAILY 10/11 1000 AC (Vitamin C) Aspirin Buffered 81 MG DAILY 10/11 1000 AC (Ecotrin) Enoxaparin Sodium 40 MG DAILY 10/11 1000 AC (Lovenox) Gabapentin 300 MG BID 10/11 1000 AC (Neurontin) Multivitamins 1 TAB DAILY 10/11 1000 AC Therapeutic (Theragran-M Vitamins Tabs) Vitamin A 10,000 UNITS DAILY 10/11 1000 AC (Aquasol-A 10,000 Units) Midodrine 5 MG 0800,1200,1600 10/11 0800 AC (Pro-Amatine) Bacitracin 1 LAI Q4 10/11 0600 AC (Bacitracin Ointment) Amitriptyline HCl 25 MG AT BEDTIME 10/11 0200 AC (Elavil 25 Mg. Tablet) Cyclobenzaprine HCl 10 MG TID PRN 10/11 0200 AC (Flexeril 10MG Tab) Diazepam 2 MG TID PRN 10/11 0200 AC (Valium) Ibuprofen 200 MG Q6P PRN 10/11 0200 AC (Advil) Mirtazapine 30 MG AT BEDTIME 10/11 0200 AC (Remeron) Morphine Sulfate 2 MG Q6-PRN PRN 10/11 0200 AC 10/11 (Morphine) 0231 Oxycodone HCl 5 MG Q6H PRN 10/11 0200 AC (Roxicodone) Zolpidem Tartrate 5 MG AT BEDTIME 10/11 0200 AC 10/11 (Ambien) 0232 Sodium Chloride 1,000 ML .Q10H 10/11 0100 AC 10/11 (Normal Saline 0.9%) 10/11 2058 0225 Hydromorphone HCl 0 .STK-MED ONE 10/11 0005 CAN (Dilaudid) Laboratory Tests 10/10/160: Urinalysis MANY H, Urine Color YEL, Urine Clarity CLDY H, Urine pH 8.0, Ur Specific [place] 1.020, Urine Protein 100 H, Urine Ketones 15 H, Urine Nitrite NEG, Urine Bilirubin NEG, Urine Urobilinogen 0.2, Ur Leukocyte Esterase LARGE H , Ur Microscopic SEDIMENT EXAMINED, Urine RBC RARE, Urine WBC 50-75 H, Ur Epithelial Cells FEW, Urine Bacteria PACKD H, Urine Mucus MOD H, Urine Hemoglobin NEG, Urine Glucose NEG 10/10/16 2017: Anion Gap 14, Estimated GFR > 60, BUN/Creatinine Ratio 21.7, Glucose 115 H, Lactic Acid 0.8, Calcium 9.3, Total Bilirubin 0.5, AST 14 L, ALT 21, Alkaline Phosphatase 135 H, Troponin I < 0.01, C-Reactive Prot, Quant > 9.0 H, Total Protein 7.2, Albumin 3.5, Globulin 3.7, Albumin/Globulin Ratio 0.9 L, CBC w Diff MAN DIFF ORDERED, RBC 3.94 L, MCV 80.1, MCH 25.6 L, RDW 15.3 H, MPV 7.6, Gran % 86.0 H, Lymphocytes % 7.5 L, Monocytes % 6.4, Eosinophils % 0.1, Basophils % 0 L, Absolute Granulocytes 19.8 H, Segmented Neutrophils 86 H, Absolute Lymphocytes 1.7, Lymphocytes 9 L, Monocytes 4, Absolute Monocytes 1.5 H, Absolute Eosinophils 0, Basophils 1, Absolute Basophils 0, Platelet Estimate INCREASED, Hypochromic-Microcytic 1+, Anisocytosis 1+, PUBS MCHC 31.9 L Microbiology 10/10 223 URINE ROUT: Urine Culture - RECD 10/10 2099 BLOOD: Blood Culture - RECD 10/10 2044 BLOOD: Blood Culture - RECD Diagnostic Imaging: Viewed by Me: Radiology Read. Discussed w/RAD: Radiology Read. CXR Impression: no acute abnormality, no infiltrates, normal size heart, normal mediastinum Initial ED EKG: none Comments: PATIENT: SHANEL SIMMONS PRESENT AGE: 56 PATIENT ACCOUNT NO: [id number] : 58 LOCATION: [facility] ([facility] ORDERING PHYSICIAN: AGUSTIN FERNANDEZ MD SERVICE DATE: 10/10/16 EXAM TYPE: RAD - XRY-PORTABLE CHEST XRAY EXAMINATION: XR CHEST PORTABLE CLINICAL INFORMATION: Cough. COMPARISON: Multiple priors, most recent chest radiographs dated 08/22/2016. TECHNIQUE: Portable AP view of the chest was obtained. FINDINGS: Unchanged linear scarring within the left lower lobe. The costophrenic angles are not included on the provided radiograph and small pleural effusions cannot be excluded. No pneumothorax. Stable cardiomediastinal silhouette. Orthopedic hardware redemonstrated within the thoracic spine as well as partially visualized within the cervical spine, unchanged. IMPRESSION: No acute cardiopulmonary process. No significant interval change since the prior examination. DICTATED BY: TRESSA MEZA MD DATE/TIME DICTATED:10/10/162134 TOP SCREW:ANDERS DATE/TIME TRANSCRIBED:10/10/162134 CONFIDENTIAL, DO NOT COPY WITHOUT APPROPRIATE AUTHORIZATION. <Electronically signed in Other Vendor System> SIGNED BY: TRESSA MEZA MD 2147 Departure Departure Disposition: STILL A PATIENT Condition: Stable Clinical Impression Primary Impression: Leukocytosis Referrals: TATYANA MACE MD (PCP/Family) Departure Forms: Customer Survey General Discharge Information Admission Note Spoke With: MATTHEW MAYNARD MD Documentation of Exam: Documentation of any treatments & extenuating circumstances including Concerns Regarding Discharge (functional status, medication knowledge or non-compliance, living conditions, etc.) that warrant an admission rather than observation: pt with indwelling nowak... u/a consistent with both infection and contamination... discussed with dr. maynard... will defer antibiotics pending full review by ID and hospital team... pt had prior urine culture of e. cloacae which appeared to be a contaminant. He is hemodynamically stable, blood/urine cultures sent. Critical Care Note Critical Care Note Critical Care Time: non-applicable
[2016-10-10 20:29] LABS: ABSOLUTE BASOPHIL COUNT 0 /CUMM (0.0-0.2); ABSOLUTE EOSINOPHIL COUNT 0 /CUMM (0.0-0.7); ABSOLUTE GRANULOCYTE CT 19.8 /CUMM (1.4-6.5); ABSOLUTE LYMPH COUNT 1.7 /CUMM (1.2-3.4); ABSOLUTE MONOCYTE COUNT 1.5 /CUMM (0.10-0.60); BASOPHIL % 0 % (0.0-2.0); EOSINOPHIL % 0.1 % (0-5); HEMATOCRIT 31.6 % (42-52); MEAN CORPUSCULAR HGB 25.6 PG (27.0-31.0); MEAN CORPUSCULAR HGB CONC 31.9 G/DL (33.0-37.0); MEAN CORPUSCULAR VOLUME 80.1 FL (80.0-94.0); MEAN PLATELET VOLUME 7.6 FL (7.4-10.4); PLATELET COUNT 539 /CUMM (130-400); RBC DISTRIBUTION WIDTH 15.3 % (11.5-14.5); RED BLOOD CELL CT 3.94 /CUMM (4.70-6.10)
--- NOTE | 2016-10-10 20:31 | NUR ---
DR FERNANDEZ ORDERED BLOOD CULTURES, UNABLE TO OBTAIN, DR FERNANDEZ AWARE AND EVERYTHING SET UP IN FOR A FEMROAL STICK FOR DR FERNANDEZ TO PERFORM.
--- NOTE | 2016-10-10 21:09 | NUR ---
DR FERNANDEZ PERFORMED A FEMORAL STICK FOR BLOOD CULTURE COLLECTION. BLOOD CULTURES SENT.
--- NOTE | 2016-10-10 21:40 | NUR ---
PATIENT MEDICATED 1MG DILAUDID TO RIGHT DELTOID PER EMAR.
--- NOTE | 2016-10-10 21:48 | RADIOLOGY REPORT ---
EXAMINATION: XR CHEST PORTABLE CLINICAL INFORMATION: Cough. COMPARISON: Multiple priors, most recent chest radiographs dated 08/22/2016. TECHNIQUE: Portable AP view of the chest was obtained. FINDINGS: Unchanged linear scarring within the left lower lobe. The costophrenic angles are not included on the provided radiograph and small pleural effusions cannot be excluded. No pneumothorax. Stable cardiomediastinal silhouette. Orthopedic hardware redemonstrated within the thoracic spine as well as partially visualized within the cervical spine, unchanged. IMPRESSION: No acute cardiopulmonary process. No significant interval change since the prior examination.
--- NOTE | 2016-10-10 22:34 | NUR ---
URINE TRIO SENT BY THIS RN
--- NOTE | 2016-10-11 00:12 | NUR ---
Emergency Dept [facility] Admit Note: To be admitted to [facility] by DR. MCMAHAN with SEPSIS ? UROLOGIC as the diagnosis, to 2NA #[id number] location. Nursing Base Remover and admitting notified 10/11/16 at 0005
--- NOTE | 2016-10-11 00:20 | NUR ---
0010 CALLED ER FOR REPORT, RN WILL CALL BACK
--- NOTE | 2016-10-11 00:22 | NUR ---
DR MCMAHAN, RESIDENT AZEEM, AND THIS RN IN FOR EVAL OF PTS BUTTOCK. PT HAS UNSTAGEABLE/ STAGE 3 ULCER ON SACRUM 5CM BY [address] MCMAHAN. LEFT GREATER TROCHANTER ULCER 2/12 CM DRESSING CHANGE BY RESIDENT AZEEM. ON RIGHT GREAT TROCHANTER 3 X4 IN ULCER DRESSING CHANGED BY RESIDENT GANN. BACITRACIN APPLIED TO TIP OF PTS PENIS FOR SKIN BREAKDOWN.
--- NOTE | 2016-10-11 00:41 | NUR ---
PT MEDICATED WITH 1MG DILAUDID IV INFUSING IN A 50ML NS BAG PER EMAR.
--- NOTE | 2016-10-11 01:25 | NUR ---
REPORT GIVEN TO ROEL SCHULTZ, THIS RN ASKED FOR A TECH TO COME DOWN TO TRANSPORT PT TO FLOOR, ROEL SCHULTZ STATED SHE WILL CALL NURSING JOGGLE PRESS OPERATOR.
--- NOTE | 2016-10-11 01:28 | NUR ---
NURSING INSTRUCTIONAL SYSTEMS SPECIALIST WILL TRANSPORT PT TO FLOOR
[2016-10-11 02:07] VITALS: BP 122/68
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
--- NOTE | 2016-10-11 03:09 | NUR ---
PT ARRIVED TO FLOOR AT 0200 VIA STRETCHER. TRANSFERED TO BED W MINIMAL ASSISTANCE. PT A&O, 2LNC 97% PRODUCTIVE COUGH, CONTACT FOR HX MRSA/VRE, ILLEOSTOMY TO R SIDE, SUPRAPUBIC DRAINING, WOUNDS TO L GR TROCANTER 2/12CM, DRESSED IN ER WITH MEPILEX, R GR TROCANTER 3/4CM MEPILEX, DRY DRESSING TO SACRUM 5/4CM "UNSTAGEABLE/STAGE 3". PER PT, WOUNDS WERE ASSESSED BY MD GANN AND DRESSED IN ER AND DOES NOT WANT THEM TO BE REMOVED AGAIN. NO DRAINAGE, INTACT. DRY DRESSING TO BACK, NO DRAINAGE FROM WOUND, SLIGHT ODOR. SKIN BREAKDOWN TO PENIS. PT 02/20 PAIN, MEDICATED PER EMAR WITH MORPHINE, REQUESTING DILAUDID, INFORMED MD BRIDGES. DENIES DISTRESS AT THIS TIME, WILL MONITOR.
--- NOTE | 2016-10-11 03:57 | Admission Certification ---
Admission Certification Certification Statement - As attending physician, I certify that at the time of - admission, based on clinical presentation, severity of - symptoms, need for further diagnostic testing and - therapeutic interventions, and risk of adverse outcomes - without in-hospital treatment, in my clinical assessment, - this patient requires an acute hospital stay for a minimum - of two nights or longer. I have also considered psychsocial - factors such as support system, advanced age, financial - issues, cognitive issues, and failed out-patient treatments, - past re-admission history, safety of patient, and lack of - compliance as applicable. Specific rationale supporting this admission is: Leukocytosis with unclear source of infection
[2016-10-11 07:44] VITALS: BP 120/62
[2016-10-11 08:21] LABS: ABSOLUTE BASOPHIL COUNT 0.1 /CUMM (0.0-0.2); ABSOLUTE EOSINOPHIL COUNT 0.3 /CUMM (0.0-0.7); ABSOLUTE GRANULOCYTE CT 11.3 /CUMM (1.4-6.5); ABSOLUTE LYMPH COUNT 1.7 /CUMM (1.2-3.4); BASOPHIL % 0.4 % (0.0-2.0); EOSINOPHIL % 1.8 % (0-5); GRANULOCYTE % 78.6 % (42.2-75.2); HEMATOCRIT 28.3 % (42-52); MEAN CORPUSCULAR HGB 26.1 PG (27.0-31.0); MEAN CORPUSCULAR HGB CONC 32.5 G/DL (33.0-37.0); MEAN CORPUSCULAR VOLUME 80.2 FL (80.0-94.0); MEAN PLATELET VOLUME 7.8 FL (7.4-10.4); PLATELET COUNT 436 /CUMM (130-400); RBC DISTRIBUTION WIDTH 15.1 % (11.5-14.5); RED BLOOD CELL CT 3.52 /CUMM (4.70-6.10); WHITE BLOOD CELL COUNT 14.3 /CUMM (4.8-10.8)
[2016-10-11 14:09] VITALS: BP 120/80
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
--- NOTE | 2016-10-11 16:17 | Cons- Urology ---
General Information and HPI Consulting Request Date of Consult: 10/11/16 Requested By: Medical service TAISHA RIOS MD Reason for Consult: neurogenic bladder with suprapubic tube Source of Information: patient, old records Exam Limitations: no limitations History of Present Illness: This patient is known to me. He is paraplegic and has a neurogenic bladder managed with a suprapubic tube. Within the last year he had 2 extensive endoscopic procedures for bladder stones. He was admitted with fever and cough. U/A is c/w UTI. His suprapubic tube was last changed about 1 week ago by [facility] Allergies/Medications Allergies: Coded Allergies: No Known Drug Allergies (03/27/16) Home Med List: Amitriptyline HCl 25 MG TABLET 1 TAB PO QHS SLEEP (Reported) Ascorbic Acid (Vitamin C) 1,000 MG TABLET 1 TAB PO DAILY SUPPLEMENT (Reported ) Aspirin (Ecotrin*) 81 MG TABLET.DR 1 TAB PO DAILY HEART HEALTH (Reported) Cyclobenzaprine HCl 10 MG TABLET 1 TAB PO TID PRN SPASMS (Reported) Diazepam (Valium) 2 MG TABLET 1 TAB PO TID PRN MUSCLE SPASMS/ANXIETY ( Reported) Gabapentin (Unknown Strength) CAPSULE 300 MG PO BID PAIN (Reported) Midodrine HCl 5 MG TABLET 3 TAB PO TID HYPOTENSION (Reported) Mirtazapine (Remeron) 30 MG TABLET 1 TAB PO QHS SLEEP (Reported) Multiple Vitamin (Multivitamins) 1 EACH TABLET 1 TAB PO DAILY SUPPLEMENT ( Reported) Vitamin A Palmitate (Vitamin A) 10,000 UNIT CAPSULE 1 CAP PO DAILY SUPPLEMENT (Reported) Zolpidem Tartrate (Ambien) 5 MG TABLET 1 TAB PO QHS SLEEP (Reported) Current Medications: Current Medications Sig/Nelson Start time Last Medication Dose Route Stop Time Status Admin Amitriptyline HCl 25 MG AT BEDTIME 10/11 0200 AC PO Ascorbic Acid 1,000 MG DAILY 10/11 1000 AC 10/11 PO 0913 Aspirin Buffered 81 MG DAILY 10/11 1000 AC 10/11 PO 0913 Bacitracin 1 LAI Q4 10/11 0600 AC 10/11 TOP 1436 Cyclobenzaprine HCl 10 MG TID PRN 10/11 0200 AC PO Diazepam 2 MG TID PRN 10/11 0200 AC PO Enoxaparin Sodium 40 MG DAILY 10/11 1000 AC 10/11 SC 0913 Gabapentin 300 MG BID 10/11 1000 AC 10/11 PO 0913 Guaifenesin 600 MG Q12 10/11 1000 AC 10/11 PO 0913 Hydromorphone HCl 2 MG Q6P PRN 10/11 1430 AC 05 IV 1436 Hydromorphone HCl 1 MG ONCE ONE 10/11 1030 DC 05 IV 10/11 1031 1112 Hydromorphone HCl 1 MG ONCE ONE 10/11 0045 DC 10/11 IV 10/11 0046 0041 Hydromorphone HCl 0 .STK-MED ONE 10/11 0005 CAN .ROUTE Hydromorphone HCl 1 MG ONCE ONE 10/10 2345 DC IM 10/10 2346 Hydromorphone HCl 0 .STK-MED ONE 10/10 2120 DC .ROUTE Hydromorphone HCl 1 MG ONCE ONE 10/10 2100 DC 10/10 IM 10/10 2101 2135 Ibuprofen 200 MG Q6P PRN 10/11 0200 AC PO Midodrine 5 MG 0800,1200,1600 10/11 0800 AC 10/11 PO 1112 Mirtazapine 30 MG AT BEDTIME 10/11 0200 AC PO Morphine Sulfate 2 MG ONCE ONE 10/11 0645 DC 10/11 IV 10/11 0646 0653 Morphine Sulfate 2 MG Q6-PRN PRN 10/11 0200 DC 10/11 IV 0912 Multivitamins 1 TAB DAILY 10/11 1000 AC 10/11 Therapeutic PO 0913 Oxycodone HCl 5 MG Q6H PRN 10/11 0200 AC PO Patient Medication 1 ED .STK-MED ONE 10/11 1403 DC Teaching ED 10/11 1404 Potassium Chloride 40 MEQ ONCE ONE 10/11 0815 DC 10/11 PO 10/11 0816 1113 Sodium Chloride 1,000 ML .Q10H 10/11 0100 AC 10/11 IV 10/11 2058 1113 Vitamin A 10,000 UNITS DAILY 10/11 1000 AC 10/11 PO 1113 Zolpidem Tartrate 5 MG AT BEDTIME 10/11 0200 AC 10/11 PO 0232 Past History Medical History Blood Transfusion Hx: Yes Neurological: PARAPLEGIC autonomic dysreflexia EENT: NONE Cardiovascular: hypertension, myocardial infarction Respiratory: ASPIRATION PNEUMONIA Gastrointestinal: GERD, COLOSTOMY PEPTIC ULCER DISEASE Hepatic: NONE Renal: nephrolithiasis (bladder), neurogenic bladder, SUPRAPUBIC CYSTOSTOMY ZURI UTI's Musculoskeletal: chronic back pain, DECUBITIS R HIP & COCCYX TIB/FIB FX CHRONIC NECK PAIN STAGE 4 PRES ULCER COCCYX OSTEOMYELITIS (BILATERAL ISCHIA) Psychiatric: NONE Endocrine: NONE Blood Disorders: anemia Cancer(s): lung cancer (non-small cell) 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 Home Who Do You Live With? self Services at Home: Home Health Aide, Nursing, Physical Therapy, Social Work Primary Language: Georgian Smoking Status: Never Smoked Functional Ability ADLs Independent: eating. Needs Assist: dressing, toileting, bathing. Ambulation: paraplegic IADLs Independent: telephone. Needs Assist: shopping, housework, finances, food prep, transportation, medication admin. Exam & Diagnostic Data Vital Signs and I&O Vital Signs Date Time Temp Pulse Resp B/P B/P Pulse O2 O2 Flow FiO2 Mean Ox Delivery Rate 10/11 1409 97.7 80 20 120/80 98 10/11 0744 98.9 88 18 120/62 97 Room Air 10/11 0300 97 Nasal 2.0L Cannula 10/11 0207 98.8 88 18 122/68 97 Room Air 10/11 0034 97.6 89 18 118/84 95 Nasal 2.0L Cannula 10/10 2233 98 Nasal 2.0L Cannula 10/10 2000 97.4 86 16 126/76 88 Room Air Intake & Output 10/11 1600 10/11 0810/11 0000 10/10 1600 10/10 0810/10 0000 Intake Total 400 Output Total 150 200 Balance 250 -200 Intake, IV 400 Output, Stool 100 Output, Urine 50 200 Patient 130 lb 130 lb Weight Weight Reported by Patient Reported by Patient Measurement Method No acute distress Abd: soft. Suprapubic tube in place. Laboratory Tests 10/11 10/10 0705 2230 Chemistry Sodium (137 - 145 mmol/L) 137 Potassium (3.5 - 5.1 mmol/L) 3.2 L Chloride (98 - 107 mmol/L) 102 Carbon Dioxide (22 - 30 mmol/L) 22 Anion Gap (5 - 16) 13 BUN (9 - 20 mg/dL) 12 Creatinine (0.7 - 1.2 mg/dL) 0.6 L Estimated GFR (>60 ml/min) > 60 BUN/Creatinine Ratio (7 - 25 %) 20.0 Total Bilirubin (0.2 - 1.3 mg/dL) 0.4 Direct Bilirubin (< 0.4 mg/dL) 0.3 AST (17 - 59 U/L) 13 L ALT (21 - 72 U/L) 20 L Alkaline Phosphatase (< 127 U/L) 111 Total Protein (6.3 - 8.2 g/dL) 6.3 Albumin (3.5 - 5.0 g/dL) 3.0 L Hematology CBC w Diff NO MAN DIFF REQ WBC (4.8 - 10.8 /CUMM) 14.3 H RBC (4.70 - 6.10 /CUMM) 3.52 L Hgb (14.0 - 18.0 G/DL) 9.2 L Hct (42 - 52 %) 28.3 L MCV (80.0 - 94.0 FL) 80.2 MCH (27.0 - 31.0 PG) 26.1 L RDW (11.5 - 14.5 %) 15.1 H Plt Count (130 - 400 /CUMM) 436 H MPV (7.4 - 10.4 FL) 7.8 Gran % (42.2 - 75.2 %) 78.6 H Lymphocytes % (20.5 - 51.1 %) 12.1 L Monocytes % (1.7 - 9.3 %) 7.1 Eosinophils % (0 - 5 %) 1.8 Basophils % (0.0 - 2.0 %) 0.4 Absolute Granulocytes (1.4 - 6.5 /CUMM) 11.3 H Absolute Lymphocytes (1.2 - 3.4 /CUMM) 1.7 Absolute Monocytes (0.10 - 0.60 /CUMM) 1.0 H Absolute Eosinophils (0.0 - 0.7 /CUMM) 0.3 Absolute Basophils (0.0 - 0.2 /CUMM) 0.1 PUBS MCHC (33.0 - 37.0 G/DL) 32.5 L Urines Urinalysis MANY H Urine Color (YEL,AMB,STR) YEL Urine Clarity (CLEAR) CLDY H Urine pH (5.0 - 8.0) 8.0 Ur Specific [place] (1.001 - 1.035) 1.020 Urine Protein (NEG,<30 MG/DL) 100 H Urine Ketones (NEG) 15 H Urine Nitrite (NEG) NEG Urine Bilirubin (NEG) NEG Urine Urobilinogen (0.1 - 1.0 EU/dl) 0.2 Ur Leukocyte Esterase (NEG) LARGE H Ur Microscopic SEDIMENT EXAMINED Urine RBC (0 - 5 /HPF) RARE Urine WBC (0 - 2 /HPF) 50-75 H Ur Epithelial Cells (NONE,FEW) FEW Urine Bacteria (NEG/NONE) PACKD H Urine Mucus (FEW,NONE) MOD H Urine Hemoglobin (NEG) NEG Urine Glucose (N MG/DL) NEG 10/10 2016 Chemistry Sodium (137 - 145 mmol/L) 138 Potassium (3.5 - 5.1 mmol/L) 3.5 Chloride (98 - 107 mmol/L) 101 Carbon Dioxide (22 - 30 mmol/L) 23 Anion Gap (5 - 16) 14 BUN (9 - 20 mg/dL) 13 Creatinine (0.7 - 1.2 mg/dL) 0.6 L Estimated GFR (>60 ml/min) > 60 BUN/Creatinine Ratio (7 - 25 %) 21.7 Glucose (65 - 99 mg/dL) 115 H Lactic Acid (0.7 - 2.1 mmol/L) 0.8 Calcium (8.4 - 10.2 mg/dL) 9.3 Total Bilirubin (0.2 - 1.3 mg/dL) 0.5 AST (17 - 59 U/L) 14 L ALT (21 - 72 U/L) 21 Alkaline Phosphatase (< 127 U/L) 135 H Troponin I (<0.11 ng/ml) < 0.01 C-Reactive Prot, Quant (<1.0 mg/dL) > 9.0 H Total Protein (6.3 - 8.2 g/dL) 7.2 Albumin (3.5 - 5.0 g/dL) 3.5 Globulin (1.9 - 4.2 gm/dL) 3.7 Albumin/Globulin Ratio (1.1 - 2.2 %) 0.9 L Hematology CBC w Diff MAN DIFF ORDERED WBC (4.8 - 10.8 /CUMM) 23.0 H RBC (4.70 - 6.10 /CUMM) 3.94 L Hgb (14.0 - 18.0 G/DL) 10.1 L Hct (42 - 52 %) 31.6 L MCV (80.0 - 94.0 FL) 80.1 MCH (27.0 - 31.0 PG) 25.6 L RDW (11.5 - 14.5 %) 15.3 H Plt Count (130 - 400 /CUMM) 539 H MPV (7.4 - 10.4 FL) 7.6 Gran % (42.2 - 75.2 %) 86.0 H Lymphocytes % (20.5 - 51.1 %) 7.5 L Monocytes % (1.7 - 9.3 %) 6.4 Eosinophils % (0 - 5 %) 0.1 Basophils % (0.0 - 2.0 %) 0 L Absolute Granulocytes (1.4 - 6.5 /CUMM) 19.8 H Segmented Neutrophils (42.2 - 75.2 %) 86 H Absolute Lymphocytes (1.2 - 3.4 /CUMM) 1.7 Lymphocytes (20.5 - 51.1 %) 9 L Monocytes (1.7 - 9.3 %) 4 Absolute Monocytes (0.10 - 0.60 /CUMM) 1.5 H Absolute Eosinophils (0.0 - 0.7 /CUMM) 0 Basophils (0.0 - 2.0 %) 1 Absolute Basophils (0.0 - 0.2 /CUMM) 0 Platelet Estimate (ADEQUATE) INCREASED Hypochromic-Microcytic 1+ Anisocytosis 1+ PUBS MCHC (33.0 - 37.0 G/DL) 31.9 L Assessment/Plan Assessment/Plan Imp: 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 New 18 fr catheter placed f/u urine C&S Abx per ID Would get KUB to assess for recurrent bladder stones Consult Acknowledgment - Thank you for your consult request.
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
--- NOTE | 2016-10-11 18:42 | NUR ---
PT STATING AT THIS TIME THAT HIS PAIN IS 8/10 ON PAIN SCALE "ALL OVER" ESPECIALLY IN THE BACK AND TO COCCYX AND HIP WOUNDS. CURRENTLY PAIN MEDS ARE ORDERED DILAUDID IV Q6. STATING THAT HE USUALLY HAS IT ORDERED EVERY 3 HOURS WHILE IN THE HOSPITAL AND ASKING IF I COULD CALL THE DR AND HAVE IT CHANGED. CALL PLACED TO CLINICAL REIMBURSEMENT SPECIALIST AT THIS TIME, ALEXY, PER CLINICAL REIMBURSEMENT SPECIALIST KEEP DILAUDID ORDERED RIGHT NOW, MEDICATE WITH PRN FLEXERIL AND ROXICODONE AND FOLLOW UP. PT GIVEN PRN ROXICODONE AND FLEXERIL AT THIS TIME. WILL CONTINUE TO MONITOR.
--- NOTE | 2016-10-11 19:52 | NUR ---
PT BACK FROM CHEST CT AT THIS TIME, STATING THAT PAIN HAS NOT DECREASED SINCE ROXICODONE ADMINISTRATION. CALL PLACED TO WOOD HEEL FITTER MACHINE
--- NOTE | 2016-10-11 20:15 | CT SCAN REPORT ---
EXAMINATION: CT CHEST WITHOUT CONTRAST CLINICAL INFORMATION: Productive cough. Fever. Leukocytosis. COMPARISON: CT chest 07/12/2016 TECHNIQUE: Multidetector volumetric CT imaging of the chest was done. Axial MIP volume rendering provided. Sagittal and coronal reformatted images were obtained. DLP: 196.78 mGy-cm FINDINGS: LUNGS: There is consolidation with air bronchograms in the dependent left lower lobe. Small patchy alveolar infiltrates in the adjacent left upper lobe near the major fissure. There is patchy infiltrate in the perihilar lung at the right middle lobe. Patchy groundglass opacities and mild bronchial wall thickening in the dependent right lower lobe. Pleural-parenchymal scarring at the right lung apex. Small emphysematous subpleural bleb at the right lung apex. MEDIASTINUM: The mediastinum is normal. PLEURA: Small dependent right pleural effusion. AXILLA: No lymphadenopathy. UPPER ABDOMEN: Unremarkable. OSSEOUS STRUCTURES: Status post fusion with transpedicular screws upper thoracic spine vertebrae old posttraumatic changes of fracture of upper thoracic vertebrae. IMPRESSION: Bilateral pneumonia.
--- NOTE | 2016-10-11 21:59 | Event Note ---
Event Note Event Note: CAT scan chest There is consolidation with air bronchograms in the dependent left lower lobe. Small patchy alveolar infiltrates in the adjacent left upper lobe near the major fissure. There is patchy infiltrate in the perihilar lung at the right middle lobe. Patchy groundglass opacities and mild bronchial wall thickening in the dependent right lower lobe. Pleural-parenchymal scarring at the right lung apex. Small emphysematous subpleural bleb at the right lung apex. * CAT scan findings suggestive of bilateral pneumonia * Patient denied any fever, chills, difficulty breathing, cough. However WBC count elevated to 14.3. * Case was discussed with Dr. Rankin * Patient was started on IV antibiotics for community-acquired pneumonia * IV ceftriaxone 1000 milligrams daily * IV azithromycin 500 mg daily
--- NOTE | 2016-10-11 22:17 | NUR ---
PT MOVED OVER TO CLINITRON BED AT THIS TIME. SOME EDEMA NOTED TO IV SITE, IVF ON HOLD FOR NOW, ATTEMPTING TO GET A NEW IV SITE. WILL CONTINUE TO MONITOR.
[2016-10-11 22:31] VITALS: BP 118/70
[2016-10-12 06:52] VITALS: BP 112/64
[2016-10-12 08:04] LABS: ABSOLUTE BASOPHIL COUNT 0 /CUMM (0.0-0.2); ABSOLUTE EOSINOPHIL COUNT 0.7 /CUMM (0.0-0.7); ABSOLUTE GRANULOCYTE CT 8.2 /CUMM (1.4-6.5); ABSOLUTE LYMPH COUNT 1.6 /CUMM (1.2-3.4); ABSOLUTE MONOCYTE COUNT 0.7 /CUMM (0.10-0.60); BASOPHIL % 0.3 % (0.0-2.0); EOSINOPHIL % 6.2 % (0-5); HEMATOCRIT 29.6 % (42-52); MEAN CORPUSCULAR HGB 25.9 PG (27.0-31.0); MEAN CORPUSCULAR HGB CONC 32.2 G/DL (33.0-37.0); MEAN CORPUSCULAR VOLUME 80.3 FL (80.0-94.0); MEAN PLATELET VOLUME 7.3 FL (7.4-10.4); PLATELET COUNT 491 /CUMM (130-400); RBC DISTRIBUTION WIDTH 15.3 % (11.5-14.5); RED BLOOD CELL CT 3.69 /CUMM (4.70-6.10); WHITE BLOOD CELL COUNT 11.2 /CUMM (4.8-10.8)
[2016-10-12 14:24] VITALS: BP 120/80
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
--- NOTE | 2016-10-12 14:38 | PN- Infect Dx ---
Subjective Subjective: Afebrile. He feels improved overall though still reports a cough with hemoptysis. Objective Last 24 Hrs of Vital Signs/I&O Vital Signs Date Time Temp Pulse Resp B/P B/P Pulse O2 O2 Flow FiO2 Mean Ox Delivery Rate 10/12 0652 98.3 72 20 112/64 96 Room Air 10/12 0000 Nasal 2.0L Cannula 10/11 2231 98.1 68 20 118/70 97 Nasal Cannula 10/11 1600 Nasal 2.0L Cannula Intake & Output 10/12 1600 10/12 0800 10/12 0000 Intake Total 540 800 Output Total 850 350 Balance -310 450 Intake, IV 300 800 Intake, Oral 240 Output, Stool 200 200 Output, Urine 650 150 Patient 130 lb Weight Physical Exam Other Physical Findings: He appears comfortable in no acute distress Lungs are clear Heart regular rhythm with no murmur Abdomen tense, nontender, with colostomy and suprapubic cystostomy in place Back decubiti not examined Results Last 24 Hours of Lab Results: Laboratory Tests 10/12 10/11 0725 2133 Chemistry Sodium (137 - 145 mmol/L) 139 Potassium (3.5 - 5.1 mmol/L) 4.3 Chloride (98 - 107 mmol/L) 103 Carbon Dioxide (22 - 30 mmol/L) 23 Anion Gap (5 - 16) 13 BUN (9 - 20 mg/dL) 8 L Creatinine (0.7 - 1.2 mg/dL) 0.6 L Estimated GFR (>60 ml/min) > 60 BUN/Creatinine Ratio (7 - 25 %) 13.3 C-Reactive Prot, Quant (<1.0 mg/dL) > 9.0 H C-React Prot High Sens (1.0 - 3.0 mg/L) > 15.0 H Hematology CBC w Diff NO MAN DIFF REQ WBC (4.8 - 10.8 /CUMM) 11.2 H RBC (4.70 - 6.10 /CUMM) 3.69 L Hgb (14.0 - 18.0 G/DL) 9.5 L Hct (42 - 52 %) 29.6 L MCV (80.0 - 94.0 FL) 80.3 MCH (27.0 - 31.0 PG) 25.9 L RDW (11.5 - 14.5 %) 15.3 H Plt Count (130 - 400 /CUMM) 491 H MPV (7.4 - 10.4 FL) 7.3 L Gran % (42.2 - 75.2 %) 73.0 Lymphocytes % (20.5 - 51.1 %) 13.9 L Monocytes % (1.7 - 9.3 %) 6.6 Eosinophils % (0 - 5 %) 6.2 H Basophils % (0.0 - 2.0 %) 0.3 Absolute Granulocytes (1.4 - 6.5 /CUMM) 8.2 H Absolute Lymphocytes (1.2 - 3.4 /CUMM) 1.6 Absolute Monocytes (0.10 - 0.60 /CUMM) 0.7 H Absolute Eosinophils (0.0 - 0.7 /CUMM) 0.7 Absolute Basophils (0.0 - 0.2 /CUMM) 0 PUBS MCHC (33.0 - 37.0 G/DL) 32.2 L ESR Westergren (0 - 10 MM) 88 H Urines Urinalysis LIGHT H Urine Color (YEL,AMB,STR) YEL Urine Clarity (CLEAR) HAZY H Urine pH (5.0 - 8.0) 8.0 Ur Specific [place] (1.001 - 1.035) 1.020 Urine Protein (NEG,<30 MG/DL) 100 H Urine Ketones (NEG) NEG Urine Nitrite (NEG) NEG Urine Bilirubin (NEG) NEG Urine Urobilinogen (0.1 - 1.0 EU/dl) 0.2 Ur Leukocyte Esterase (NEG) MOD H Ur Microscopic SEDIMENT EXAMINED Urine RBC (0 - 5 /HPF) 15-25 H Urine WBC (0 - 2 /HPF) 15-25 H Urine Bacteria (NEG/NONE) MANY H Urine Hemoglobin (NEG) MOD H Urine Glucose (N MG/DL) NEG Last 24 Hours of Gallito Results: Blood cultures October 10 positive for Staph aureus in one set and coag-negative Staph in the other Urine culture October 10 greater than 100,000 colonies of Proteus mirabilis intermediate to Ciprofloxacin and resistant to Nitrofurantoin Sputum culture October 11 positive for Staph aureus and gram-negative rods Urine culture October 11 greater than 100,000 colonies of gram-negative rods Stool C. difficile October 11 negative Recent Imaging Studies: CT of the chest October 11 reveals consolidation with air bronchograms in the left lower lobe, small patchy alveolar infiltrates in the adjacent left upper lobe near the major fissure and patchy infiltrate in the perihilar lung at the right middle lobe Assessment/Plan Impression: Multilobar pneumonia, for which he was begun on Ceftriaxone and Azithromycin yesterday, likely secondary to Staph aureus and gram-negative rods, with Staph aureus also isolated from one blood culture. The positive blood culture for coag negative Staph likely represents a contaminant, but it is difficult to dismiss the Staph aureus, and he will require a minimum of 2 weeks of IV antibiotics for this. Other possible sources of the Staph aureus bacteremia include his decubiti, which have been a chronic problem, with underlying osteomyelitis, status post a recent prolonged course of IV antibiotics. The positive urine culture likely represents colonization and should not require treatment. Of note he was diagnosed with non-small cell cancer of the lung at the [place] 5 months prior to admission and received 3 stereotactic radiation treatments at [place]. It is not clear that this has been followed up. Suggestion: 1. Repeat blood cultures 2 2. Echocardiogram 3. Follow-up recent cultures 4. Will need follow-up of his non-small cell cancer 5. Discontinue Azithromycin 6. Increase Ceftriaxone to 2 g IV every 24 hours pending above
--- NOTE | 2016-10-12 16:44 | RADIOLOGY REPORT ---
EXAMINATION: XR KIDNEYS, URETER, BLADDER CLINICAL INDICATION: Incontinence. Neurogenic bladder. COMPARISON: CT scan of the abdomen and pelvis dated 08/22/2016. KUB dated 04/24/2016. TECHNIQUE: AP view of the abdomen performed on 2 images. FINDINGS: A suprapubic catheter is seen extending into the lower pelvis, consistent with the known suprapubic bladder catheter. The pubic symphysis is not included on these images. No definite calculi are seen overlying the kidneys or the expected course of the ureters and the bladder. Bowel gas pattern is unremarkable. Right lower quadrant colostomy is seen in place. Mild linear subsegmental atelectasis is noted in the left lung base. Mild degenerative changes are seen in the mid and lower lumbar spine. Moderate degenerative changes in both hips are seen. Heterotopic ossification in the soft tissues of the left hip are also noted. IMPRESSION: 1. Suprapubic catheter in place. 2. No definite renal, ureteral or bladder calculi appreciated on plain film. 3. Unremarkable bowel gas pattern status post right lower quadrant colostomy.
[2016-10-12 22:08] VITALS: BP 110/82
[2016-10-13 06:43] VITALS: BP 110/80
--- NOTE | 2016-10-13 12:50 | PN- Infect Dx ---
Subjective Subjective: Afebrile. He continues to cough up blood, with some purulent sputum as well, but denies any chest pain or shortness of breath. Objective Last 24 Hrs of Vital Signs/I&O Vital Signs Date Time Temp Pulse Resp B/P B/P Pulse O2 O2 Flow FiO2 Mean Ox Delivery Rate 10/13 0643 98.4 98 20 110/80 94 Room Air 10/12 2208 99.0 102 20 110/82 94 Room Air 10/12 1424 98.8 60 20 120/80 98 Intake & Output 10/13 1600 10/13 0800 05 0000 Intake Total 400 240 Output Total 650 1075 Balance -250 -835 Intake, Oral 400 240 Output, Stool 200 Output, Urine 650 875 Physical Exam Other Physical Findings: He appears comfortable in no acute distress Lungs are clear Heart regular rhythm with no murmur Back right ischial decubitus clean and superficial; right greater trochanteric ulcer with some necrosis without surrounding erythema or purulence; left ischial decubitus with purulent appearing exudate without necrosis or surrounding erythema Results Last 24 Hours of Lab Results: No labs from today Last 24 Hours of Gallito Results: Blood cultures October 10 one bottle positive for MRSA and one bottle positive for coag negative Staph Blood cultures October 12 negative Urine culture October 10 and October 11 greater than 100,000 colonies of Proteus resistant to Ciprofloxacin and Nitrofurantoin Sputum culture October 11 positive for MRSA and Enterobacter sensitive to Gentamicin and Meropenem Stool culture October 11 mixed pierce Recent Imaging Studies: KUB October 12 negative Assessment/Plan Impression: MRSA bacteremia most likely secondary to pneumonia, with the recent CT scan revealing bilateral opacities and with his sputum culture positive for MRSA as well as Enterobacter. He remains afebrile with white blood cell count decreased on Ceftriaxone alone, but, given his culture results, his antibiotics will need to be adjusted. Other possible sources of the Staph aureus bacteremia include his decubiti, particularly the left ischial decubitus, with purulent appearing exudate, with a history of recurrent osteomyelitis, for which he has received multiple courses of antibiotics and skin flaps, most recently 4 months prior to admission. The positive urine culture likely represents colonization and should not require treatment. Of note he was diagnosed with non-small cell cancer of the lung at the [place] 5 months prior to admission and received 3 stereotactic radiation treatments at [place], which could explain in part his hemoptysis. Suggestion: 1. Echocardiogram 2. Await MRI of the pelvis 3. Plastic surgery evaluation for his decubiti 4. Consider Pulmonary evaluation if his hemoptysis persists 5. Discontinue Ceftriaxone 6. Begin Vancomycin 1 g IV every 24 hours and Zosyn 3.375 g IV every 6 hours
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
[2016-10-13 14:24] VITALS: BP 100/72
--- NOTE | 2016-10-13 16:35 | NUR ---
PT CAME BACK TO FLOOR VIA STRETCHER FROM MRI AT THIS TIME. PT ASSISTED BACK ONTO BED & C/O OF SEVERE PAIN DUE TO MOVEMENT. PT REQUESTED MORE DILAUDID. CALL MADE TO WHARF TENDER, ONE TIME ORDER FOR 1MG IV DILAUDID ACKNOWLEDGED & ADMINISTERED TO PT. WILL CONTINUE TO MONITOR.
--- NOTE | 2016-10-13 18:30 | NUR ---
PT SHOWED THIS RN A SCANT AMOUNT OF BLOOD TINGED SPUTUM, BLANKER OPERATOR MADE AWARE. PT DID NOT HAVE ANY MORE PRODUCTION OF BLOOD TINGED SPUTUM FOR THE REST OF THIS RNS SHIFT. PT STATED HE HAS BEEN HAVING BLOOD TINGED SPUTUM FOR THE WHOLE DAY 10/13/16. NO NEW ORDERS, REPORT PASSED TO NEXT SHIFT RN. WILL CONTINUE TO MONITOR.
--- NOTE | 2016-10-13 19:36 | MRI REPORT ---
EXAMINATION: MR PELVIS WITHOUT CONTRAST CLINICAL INFORMATION: Pain. Possible osteomyelitis. COMPARISON: CT abdomen pelvis 08/22/2016 TECHNIQUE: MRI of the pelvis without contrast was obtained using routine sequences. FINDINGS: Large [id number] utilized including midabdomen through pelvis and upper thigh. There is a focal region of low signal on T1 and increased signal on T2 involving the left iliac wing adjacent to the left sacroiliac joint posteriorly. This area measures 3.2 x 2 x 2.3 cm. This is adjacent to skin ulceration. This is suspicious for a focus of osteomyelitis therefore. There is a focal fluid collection at the perineum to left of midline measuring 2.5 x 2 x 5 cm without surrounding inflammatory change Limited anatomic detail uncertain significance of this collection but there is no abnormal signal of the ischium. IMPRESSION: Focal abnormal signal in the left iliac wing suspicious for focus of osteomyelitis
--- NOTE | 2016-10-13 22:00 | NUR ---
PTS PULSE 106, PT IN NO APPARENT DISTRESS. DENIES ANY CP. RESTING ON BED. 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 NO NEW ORDERS. WILL CONTINUE TO MONITOR.
[2016-10-13 22:45] VITALS: BP 104/60
[2016-10-14 06:56] VITALS: BP 86/81
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
[2016-10-14 11:26] LABS: ABSOLUTE BASOPHIL COUNT 0 /CUMM (0.0-0.2); ABSOLUTE EOSINOPHIL COUNT 1.3 /CUMM (0.0-0.7); ABSOLUTE GRANULOCYTE CT 10.4 /CUMM (1.4-6.5); ABSOLUTE LYMPH COUNT 1.5 /CUMM (1.2-3.4); ABSOLUTE MONOCYTE COUNT 0.6 /CUMM (0.10-0.60); BASOPHIL % 0.3 % (0.0-2.0); EOSINOPHIL % 9.4 % (0-5); GRANULOCYTE % 75.3 % (42.2-75.2); HEMATOCRIT 28.6 % (42-52); MEAN CORPUSCULAR HGB 26.1 PG (27.0-31.0); MEAN CORPUSCULAR HGB CONC 32.5 G/DL (33.0-37.0); MEAN CORPUSCULAR VOLUME 80.1 FL (80.0-94.0); MEAN PLATELET VOLUME 6.8 FL (7.4-10.4); PLATELET COUNT 542 /CUMM (130-400); RBC DISTRIBUTION WIDTH 15.8 % (11.5-14.5); RED BLOOD CELL CT 3.57 /CUMM (4.70-6.10); WHITE BLOOD CELL COUNT 13.8 /CUMM (4.8-10.8)
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
[2016-10-14 14:42] VITALS: BP 130/70
--- NOTE | 2016-10-14 15:43 | PN- Infect Dx ---
Subjective Subjective: Afebrile. He feels well but continues to note hemoptysis. Objective Last 24 Hrs of Vital Signs/I&O Vital Signs Date Time Temp Pulse Resp B/P B/P Pulse O2 O2 Flow FiO2 Mean Ox Delivery Rate 10/14 1442 98.4 76 20 130/70 94 Room Air 10/14 0656 98.1 92 20 86/81 93 Room Air 10/13 2245 99.4 106 20 104/60 97 Room Air Intake & Output 10/14 1600 10/14 0800 10/14 0000 Intake Total 200 980 Output Total 400 550 650 Balance -400 -350 330 Intake, IV 100 380 Intake, Oral 100 600 Output, Stool 200 Output, Urine 400 550 450 Physical Exam Other Physical Findings: He appears comfortable in no acute distress Lungs are clear Heart regular rhythm with no murmur Back decubiti dressings intact Results Last 24 Hours of Lab Results: Laboratory Tests 10/14 10/14 1110 0640 Chemistry Sodium (137 - 145 mmol/L) 138 Potassium (3.5 - 5.1 mmol/L) 4.1 Chloride (98 - 107 mmol/L) 97 L Carbon Dioxide (22 - 30 mmol/L) 30 Anion Gap (5 - 16) 11 BUN (9 - 20 mg/dL) 15 Creatinine (0.7 - 1.2 mg/dL) 0.6 L Estimated GFR (>60 ml/min) > 60 BUN/Creatinine Ratio (7 - 25 %) 25.0 Hematology CBC w Diff NO MAN DIFF REQ WBC (4.8 - 10.8 /CUMM) 13.8 H RBC (4.70 - 6.10 /CUMM) 3.57 L Hgb (14.0 - 18.0 G/DL) 9.3 L Hct (42 - 52 %) 28.6 L MCV (80.0 - 94.0 FL) 80.1 MCH (27.0 - 31.0 PG) 26.1 L RDW (11.5 - 14.5 %) 15.8 H Plt Count (130 - 400 /CUMM) 542 H MPV (7.4 - 10.4 FL) 6.8 L Gran % (42.2 - 75.2 %) 75.3 H Lymphocytes % (20.5 - 51.1 %) 10.7 L Monocytes % (1.7 - 9.3 %) 4.3 Eosinophils % (0 - 5 %) 9.4 H Basophils % (0.0 - 2.0 %) 0.3 Absolute Granulocytes (1.4 - 6.5 /CUMM) 10.4 H Absolute Lymphocytes (1.2 - 3.4 /CUMM) 1.5 Absolute Monocytes (0.10 - 0.60 /CUMM) 0.6 Absolute Eosinophils (0.0 - 0.7 /CUMM) 1.3 Absolute Basophils (0.0 - 0.2 /CUMM) 0 PUBS MCHC (33.0 - 37.0 G/DL) 32.5 L Last 24 Hours of [place] Results: Blood cultures 2 October 12 negative Recent Imaging Studies: MRI of the pelvis October 13 reveals a 3. 2 x 2 by 2.3 cm focal abnormal signal in the left iliac wing suspicious for osteomyelitis; a focal fluid collection at the perineum to the left of midline measuring 2.5 x 2 x 5 cm Assessment/Plan Impression: MRSA bacteremia most likely secondary to pneumonia, with the recent CT scan revealing bilateral opacities and with his sputum culture positive for MRSA as well as Enterobacter. He remains afebrile though white blood cell count has increased today on Vancomycin and Zosyn. His MRI results suggest the possibility of osteomyelitis of the left iliac wing as well as a fluid collection at the perineum and these may also represent possible sources of sepsis. The positive urine culture likely represents colonization and should not require treatment. Of note he was diagnosed with non-small cell cancer of the lung at the [place] 5 months prior to admission and received 3 stereotactic radiation treatments at [facility], which may explain his hemoptysis. Suggestion: 1. Echocardiogram 2. Plastic surgery evaluation regarding his MRI findings and for possible debridement 3. Pulmonary evaluation 4. Proceed with PICC 5. Continue Vancomycin and Zosyn
--- NOTE | 2016-10-14 17:52 | ECHOCARDIOGRAM REPORT ---
TROY SHANEL Age: 56 : 1960 Gender: M Exam Date: 10/14/2016 10:07 Exam Location: [address] [facility] [address] Ht (in): 69 Wt (lb): 130 BSA: 1.69 BP: 110 / 80 Ordering Physician: KIRA DANIELLE MD Referring Physician: KIRA DANIELLE MD Technologist: Zain Lobato [facility] Room Number: 238-1 Indications: INFECTIVE ENDOCARDITIS Rhythm: Technical Quality: limited study FINDINGS Left Ventricle Left ventricle not well visualized. Normal left ventricular wall motion. Normal left ventricular ejection fraction estimated at 55- 60%. Right Ventricle Right ventricle not well visualized, grossly normal. Right Atrium Normal right atrial size. Left Atrium Normal left atrial size. Mitral Valve Mild mitral annular calcification. Trace to mild mitral regurgitation. Aortic Valve Aortic valve not well visualized, grossly normal. Tricuspid Valve Tricuspid valve not well visualized, grossly normal. Pulmonic Valve Pulmonic valve not well visualized. Pericardium Small pericardial effusion. Great Vessels Normal size aortic root. CONCLUSIONS Limited echo study,poor window. Normal overall left and right ventricular systolic function. No gross valvular abnormalities noted. Shanel Monroe M.D. (Electronically Signed) Final Date: 14 Oct 2016 17:51 MEASUREMENTS (Male / Female) Normal Values 2D ECHO LV Diastolic Diameter PLAX 3.8 cm 4.2 - 5.9 / 3.9 - 5.3 cm LV Systolic Diameter PLAX 3.0 cm 2.1 - 4.0 cm LV Fractional Shortening PLAX 21.1 % 25 - 46 % LV Ejection Fraction 2D Teich 43.5 % IVS Diastolic Thickness 0.9 cm LVPW Diastolic Thickness 0.9 cm LV Relative Wall Thickness 0.5 LVOT Diameter 1.9 cm Aortic Root Diameter 2.9 cm LA Systolic Diameter LX 1.8 cm 3.0 - 4.0 / 2.7 - 3.8 cm DOPPLER AV Peak Velocity 86.9 cm/s AV Peak Gradient 3.0 mmHg AV Mean Velocity 62.0 cm/s AV Mean Gradient 2.0 mmHg AV Velocity Time Integral 15.4 cm LVOT Peak Velocity 60.2 cm/s LVOT Peak Gradient 1.4 mmHg LVOT Mean Velocity 47.4 cm/s LVOT Mean Gradient 1.0 mmHg LVOT Velocity Time Integral 14.6 cm LVOT Stroke Volume 41.4 cm AV Area Cont Eq vti 2.7 cm AV Area Cont Eq pk 2.0 cm MV Peak Velocity 73.1 cm/s MV Peak Gradient 2.1 mmHg MV Mean Velocity 51.1 cm/s MV Mean Gradient 1.0 mmHg Mitral E Point Velocity 37.5 cm/s Mitral A Point Velocity 58.7 cm/s Mitral E to A Ratio 0.6 MV PHT Velocity 77.4 cm/s MV Deceleration [place] 392.0 cm/s MV Pressure Half Time 59.2 ms MV Area PHT 3.7 cm MV Deceleration Time 261.0 ms TR Peak Velocity 251.0 cm/s TR Peak Gradient 25.2 mmHg Right Atrial Pressure 5.0 mmHg Pulmonary Artery Systolic Pressu 30.2 mmHg Right Ventricular Systolic Press 30.2 mmHg PV Peak Velocity 80.0 cm/s PV Peak Gradient 2.6 mmHg PV Mean Velocity 60.6 cm/s PV Mean Gradient 2.0 mmHg PV Velocity Time Integral 14.8 cm
[2016-10-14 22:14] VITALS: BP 163/89
--- NOTE | 2016-10-15 01:46 | NUR ---
PT SATURATED ADB PAD COVERING RT HIP WITH BLOOD TWICE. FIRST CHANGE 10/14/16 @ 2100, SECOND NOW. MD SPIVEYUREDDY NOTIFIED OF HEAVY DRAINAGE. NO INTERVENTIONS AT THIS TIME. WILL CONTINUE TO MONITOR THIS SHIFT.
--- NOTE | 2016-10-15 04:00 | NUR ---
PT RT HIP DSG HEAVY DRAINAGE AND NEEDED TO BE CHANGED. 2.5 HRS SINCE LAST DSG CHANGE.
[2016-10-15 06:48] VITALS: BP 148/80
[2016-10-15 08:51] LABS: ABSOLUTE BASOPHIL COUNT 0 /CUMM (0.0-0.2); ABSOLUTE EOSINOPHIL COUNT 1.5 /CUMM (0.0-0.7); ABSOLUTE GRANULOCYTE CT 13.8 /CUMM (1.4-6.5); ABSOLUTE LYMPH COUNT 1.5 /CUMM (1.2-3.4); ABSOLUTE MONOCYTE COUNT 0.4 /CUMM (0.10-0.60); BASOPHIL % 0.2 % (0.0-2.0); EOSINOPHIL % 8.7 % (0-5); GRANULOCYTE % 80.3 % (42.2-75.2); HEMATOCRIT 27.2 % (42-52); MEAN CORPUSCULAR HGB 26.1 PG (27.0-31.0); MEAN CORPUSCULAR HGB CONC 32.3 G/DL (33.0-37.0); MEAN CORPUSCULAR VOLUME 80.8 FL (80.0-94.0); MEAN PLATELET VOLUME 7.3 FL (7.4-10.4); PLATELET COUNT 544 /CUMM (130-400); RBC DISTRIBUTION WIDTH 15.2 % (11.5-14.5); RED BLOOD CELL CT 3.36 /CUMM (4.70-6.10); WHITE BLOOD CELL COUNT 17.2 /CUMM (4.8-10.8)
--- NOTE | 2016-10-15 09:29 | PN- Wound Care ---
Subjective Subjective: MRI diagnostic for osteomyelitis for which a PICC line to be placed for long- term antibiotics instituted. He is had some bleeding from right lateral hip wound for which nurses have asked for evaluation Objective Vital Signs and I&Os Vital Signs Result Date Time Pulse Ox 95 10/16 647 B/P 148/80 10/16 647 O2 Delivery Room Air 10/16 647 Temp 98.3 10/16 647 Pulse 91 10/16 647 Resp 20 10/16 647 O2 Flow Rate 2.0L 10/12 08 Intake & Output 10/15 0000 10/14 1600 10/14 0800 Intake Total 390 600 200 Output Total 375 650 550 Balance 15 -50 -350 Intake, IV 150 100 Intake, Oral 240 600 100 Output, Stool 250 Output, Urine 375 400 550 Exam of the right hip wound shows there to be areas of granulation tissue from which there is no active bleeding Impression/Plan Impression/Plan Impression/Plan: 56-year-old with multiple medical problems multiple stage III and 4 pressure ulcers complicated by osteomyelitis for which she completed antibiotic therapy in June. These remain suspicious for chronic refractory osteomyelitis. He does not appear to have an acute soft tissue skin infection. Recommend Clinitron bed. Can change Aquacel silver which may be adherent to nonadherent Adaptic or Xeroform to the right hip
--- NOTE | 2016-10-15 12:45 | PN- Infect Dx ---
Subjective Subjective: Afebrile. He continues to complain of hemoptysis but notes no shortness of breath or chest discomfort. Objective Last 24 Hrs of Vital Signs/I&O Vital Signs Date Time Temp Pulse Resp B/P B/P Pulse O2 O2 Flow FiO2 Mean Ox Delivery Rate 10/15 0648 98.3 91 20 148/80 95 Room Air 10/14 2214 98.4 101 20 163/89 94 10/14 1442 98.4 76 20 130/70 94 Room Air Intake & Output 10/15 1600 10/15 0800 10/15 0000 Intake Total 540 390 Output Total 525 375 Balance 15 15 Intake, IV 300 150 Intake, Oral 240 240 Output, Stool 150 Output, Urine 375 375 Physical Exam Other Physical Findings: He appears comfortable in no acute distress Lungs are clear Heart regular rhythm with no murmur Back bilateral greater trochanteric decubiti with necrotic areas with no purulence and with no surrounding erythema Results Last 24 Hours of Lab Results: Laboratory Tests 10/15 614 Hematology CBC w Diff NO MAN DIFF REQ WBC (4.8 - 10.8 /CUMM) 17.2 H RBC (4.70 - 6.10 /CUMM) 3.36 L Hgb (14.0 - 18.0 G/DL) 8.8 L Hct (42 - 52 %) 27.2 L MCV (80.0 - 94.0 FL) 80.8 MCH (27.0 - 31.0 PG) 26.1 L RDW (11.5 - 14.5 %) 15.2 H Plt Count (130 - 400 /CUMM) 544 H MPV (7.4 - 10.4 FL) 7.3 L Gran % (42.2 - 75.2 %) 80.3 H Lymphocytes % (20.5 - 51.1 %) 8.5 L Monocytes % (1.7 - 9.3 %) 2.3 Eosinophils % (0 - 5 %) 8.7 H Basophils % (0.0 - 2.0 %) 0.2 Absolute Granulocytes (1.4 - 6.5 /CUMM) 13.8 H Absolute Lymphocytes (1.2 - 3.4 /CUMM) 1.5 Absolute Monocytes (0.10 - 0.60 /CUMM) 0.4 Absolute Eosinophils (0.0 - 0.7 /CUMM) 1.5 Absolute Basophils (0.0 - 0.2 /CUMM) 0 PUBS MCHC (33.0 - 37.0 G/DL) 32.3 L Last 24 Hours of [place] Results: Blood cultures 2 October 12 remain negative Recent Imaging Studies: Echocardiogram October 14 no evidence of vegetations Assessment/Plan Impression: MRSA bacteremia most likely secondary to pneumonia, with the recent CT scan revealing bilateral opacities and with his sputum culture positive for MRSA as well as Enterobacter. He remains afebrile though white blood cell count continues to increase on Vancomycin and Zosyn. Given the isolation of Enterobacter it may be best to avoid penicillins, including Zosyn, given concern for the possible induction of beta lactamase production; therefore will resume Meropenem. His MRI results suggest the possibility of osteomyelitis of the left iliac wing as well as a fluid collection at the perineum, which may also represent possible sources of sepsis, and he may require further debridement and bone biopsy. Have spoken with Dr. Marroquin who will see him today. Of note he was diagnosed with non-small cell cancer of the lung at the [place] 5 months prior to admission and received 3 stereotactic radiation treatments at [place], which may explain his hemoptysis. Suggestion: 1. Await Plastic surgery evaluation regarding his MRI findings and possible debridement 2. Pulmonary evaluation for his hemoptysis and recent diagnosis of lung cancer 3. May need to consider MADHU but will discuss further after evaluated by Plastics 4. Await placement of PICC 5. Discontinue Zosyn 6. Restart Meropenem 1 g IV every 8 hours 7. Continue Vancomycin 8. Check a Vancomycin trough level on October 17
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
[2016-10-15 17:05] VITALS: BP 90/48
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
[2016-10-15 22:52] VITALS: BP 90/50
[2016-10-16 06:54] VITALS: BP 92/44
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
[2016-10-16 09:22] LABS: ABSOLUTE BASOPHIL COUNT 0.1 /CUMM (0.0-0.2); ABSOLUTE EOSINOPHIL COUNT 1.3 /CUMM (0.0-0.7); ABSOLUTE GRANULOCYTE CT 12.1 /CUMM (1.4-6.5); ABSOLUTE LYMPH COUNT 1.3 /CUMM (1.2-3.4); ABSOLUTE MONOCYTE COUNT 0.5 /CUMM (0.10-0.60); BASOPHIL % 0.4 % (0.0-2.0); EOSINOPHIL % 8.8 % (0-5); GRANULOCYTE % 79.1 % (42.2-75.2); HEMATOCRIT 22.7 % (42-52); MEAN CORPUSCULAR HGB CONC 32.3 G/DL (33.0-37.0); MEAN CORPUSCULAR VOLUME 80.4 FL (80.0-94.0); MEAN PLATELET VOLUME 6.9 FL (7.4-10.4); PLATELET COUNT 570 /CUMM (130-400); RBC DISTRIBUTION WIDTH 15.8 % (11.5-14.5); RED BLOOD CELL CT 2.82 /CUMM (4.70-6.10); WHITE BLOOD CELL COUNT 15.3 /CUMM (4.8-10.8)
--- NOTE | 2016-10-16 10:19 | PN- Pulmonary ---
Subjective HPI/Critical Care Issues: Patient is 56-year-old with diagnosis of non-small cell right upper lobe lung cancer status post radiation therapy. He is reported hemoptysis over the past month associated with hoarseness. CT scan shows multifocal infiltrates thought secondary to polymicrobial pneumonia. Describes his sputum as red gelatinous he 's had no episodes of significant hemoptysis. Objective Current Medications: Current Medications Sig/Nelson Start time Last Medication Dose Route Stop Time Status Admin Amitriptyline HCl 25 MG AT BEDTIME 10/11 0200 AC 10/15 PO 2130 Ascorbic Acid 1,000 MG DAILY 10/11 1000 AC 10/16 PO 0840 Aspirin Buffered 81 MG DAILY 10/11 1000 AC 10/16 PO 0841 Bacitracin 1 LAI Q4 10/11 0600 AC 10/16 TOP 0842 Cyclobenzaprine HCl 10 MG TID PRN 10/11 0200 AC 10/14 PO 2051 Diazepam 2 MG TID PRN 10/11 0200 AC 10/15 PO 1010 Enoxaparin Sodium 40 MG DAILY 10/11 1000 AC 10/16 SC 0842 Gabapentin 300 MG BID 10/11 1000 AC 10/16 PO 0841 Guaifenesin 600 MG Q12 10/11 1000 AC 10/16 PO 0841 Heparin Sodium 0 .STK-MED ONE 10/15 1248 DC (Porcine) IV Hydromorphone HCl 1.5 MG ONCE ONE 10/16 1015 DC IV 10/16 1016 Hydromorphone HCl 2 MG ONCE ONE 10/15 1245 DC 10/15 IV 10/15 1246 1241 Hydromorphone HCl 2.5 MG Q4 HRS NEEDED PRN 10/14 1515 AC 10/16 IV 0845 Ibuprofen 200 MG Q6P PRN 10/11 0200 AC PO Lidocaine 0 .STK-MED ONE 10/15 1248 DC .ROUTE Meropenem 1 GM IQ8 10/15 1600 AC 10/16 IV 0842 Midodrine 5 MG 0800,1200,1600 10/11 0800 AC 10/16 PO 0841 Mirtazapine 30 MG AT BEDTIME 10/11 0200 AC 10/15 PO 2130 Multivitamins 1 TAB DAILY 10/11 1000 AC 10/16 Therapeutic PO 0841 Oxycodone HCl 5 MG Q6H PRN 10/11 0200 AC 10/15 PO 1813 Piperacillin Sod/ 3.375 GM Q6H 10/14 0400 DC 10/15 Tazobactam Sod IV 1010 Sodium Chloride 100 ML Vancomycin HCl 1,000 MG Q24H 10/13 1600 AC 10/15 Sodium Chloride 250 ML IV 1613 Vitamin A 10,000 UNITS DAILY 10/11 1000 AC 10/15 PO 1010 Zolpidem Tartrate 5 MG AT BEDTIME 10/11 0200 AC 10/15 PO 2129 Vital Signs & I&O Last 24 Hrs of Vitals and I&O: Vital Signs Date Time Temp Pulse Resp B/P B/P Pulse O2 O2 Flow FiO2 Mean Ox Delivery Rate 10/16 0654 98.0 104 16 92/44 94 10/15 2252 98.5 108 20 90/50 93 Room Air 10/15 1705 98.1 128 20 90/48 93 Room Air 10/15 1600 Room Air 10/15 1337 Room Air 2.0L Intake & Output 10/16 1600 10/16 0800 05/ 0000 Intake Total 150 Output Total 550 425 Balance -550 -275 Intake, IV 50 Intake, Oral 100 Output, Stool 100 Output, Urine 550 325 Room air oximetry is 94% exam of his chest shows scattered rhonchi cardiac exam shows regular S1 and S2 without murmurs Impression/Plan Impression/Plan Impression/Plan: 56-year-old with multiple medical problems recent diagnosis of non-small cell lung cancer status post radiation therapy to the right upper lobe has had chronic hemoptysis over past month associated with hoarseness. This is complicated by what appears to be polymicrobial pneumonia. Recommendations: Sputum for cytology. ENT evaluation to exclude paralyzed vocal cord. He will need fiberoptic bronchoscopy timing to be determined based on other medical issues
[2016-10-16 14:37] VITALS: BP 100/56
[2016-10-16 15:22] VITALS: BP 92/50
[2016-10-16 20:09] LABS: ABSOLUTE BASOPHIL COUNT 0.1 /CUMM (0.0-0.2); ABSOLUTE GRANULOCYTE CT 14.8 /CUMM (1.4-6.5); MEAN PLATELET VOLUME 6.9 FL (7.4-10.4); RBC DISTRIBUTION WIDTH 15.9 % (11.5-14.5)
[2016-10-16 20:11] LABS: ABSOLUTE EOSINOPHIL COUNT 1.6 /CUMM (0.0-0.7); ABSOLUTE MONOCYTE COUNT 0.8 /CUMM (0.10-0.60); BASOPHIL % 0.4 % (0.0-2.0); GRANULOCYTE % 77.1 % (42.2-75.2); MEAN CORPUSCULAR HGB 25.9 PG (27.0-31.0); MEAN CORPUSCULAR HGB CONC 32.2 G/DL (33.0-37.0); MEAN CORPUSCULAR VOLUME 80.5 FL (80.0-94.0); PLATELET COUNT 679 /CUMM (130-400); WHITE BLOOD CELL COUNT 19.2 /CUMM (4.8-10.8)
[2016-10-16 20:12] LABS: RED BLOOD CELL CT 3.72 /CUMM (4.70-6.10)
[2016-10-16 20:29] LABS: EOSINOPHIL % 8.2 % (0-5)
[2016-10-16 22:30] VITALS: BP 118/68
[2016-10-17 05:40] LABS: ABSOLUTE BASOPHIL COUNT 0 /CUMM (0.0-0.2); ABSOLUTE EOSINOPHIL COUNT 1.3 /CUMM (0.0-0.7); ABSOLUTE LYMPH COUNT 1.6 /CUMM (1.2-3.4); ABSOLUTE MONOCYTE COUNT 0.6 /CUMM (0.10-0.60); BASOPHIL % 0.3 % (0.0-2.0); EOSINOPHIL % 9.4 % (0-5); GRANULOCYTE % 74.2 % (42.2-75.2); HEMATOCRIT 27.9 % (42-52); MEAN CORPUSCULAR HGB 26.3 PG (27.0-31.0); MEAN CORPUSCULAR HGB CONC 32.6 G/DL (33.0-37.0); MEAN CORPUSCULAR VOLUME 80.6 FL (80.0-94.0); MEAN PLATELET VOLUME 6.7 FL (7.4-10.4); PLATELET COUNT 632 /CUMM (130-400); RED BLOOD CELL CT 3.46 /CUMM (4.70-6.10); WHITE BLOOD CELL COUNT 13.4 /CUMM (4.8-10.8)
[2016-10-17 06:30] VITALS: BP 124/60
--- NOTE | 2016-10-17 09:59 | PN- Pulmonary ---
Subjective HPI/Critical Care Issues: Patient continues to have low level hemoptysis Objective Current Medications: Current Medications Sig/Nelson Start time Last Medication Dose Route Stop Time Status Admin Amitriptyline HCl 25 MG AT BEDTIME 10/11 0200 AC 10/16 PO 2057 Ascorbic Acid 1,000 MG DAILY 10/11 1000 AC 10/17 PO 0953 Aspirin Buffered 81 MG DAILY 10/11 1000 AC 10/17 PO 0953 Bacitracin 1 LAI Q4 10/11 0600 AC 10/17 TOP 0456 Cyclobenzaprine HCl 10 MG TID PRN 10/11 0200 AC 10/14 PO 205 Diazepam 2 MG TID PRN 10/11 0200 AC 10/15 PO 1010 Enoxaparin Sodium 40 MG DAILY 10/11 1000 AC 10/17 SC 0951 Gabapentin 300 MG BID 10/11 1000 AC 10/17 PO 0951 Guaifenesin 600 MG Q12 10/11 1000 AC 10/17 PO 0951 Hydromorphone HCl 2 MG ONCE ONE 10/16 2215 DC 10/16 IV 10/16 2216 2232 Hydromorphone HCl 1.5 MG ONCE ONE 10/16 1015 DC / IV 10/16 1016 1037 Hydromorphone HCl 2.5 MG Q4 HRS NEEDED PRN 10/14 1515 AC 10/17 IV 0949 Ibuprofen 200 MG Q6P PRN 10/11 0200 AC PO Meropenem 1 GM IQ8 10/15 1600 AC 10/17 IV 0950 Midodrine 5 MG 0800,1200,1600 10/11 0800 AC 10/17 PO 0950 Mirtazapine 30 MG AT BEDTIME 10/11 0200 AC 10/16 PO 205 Multivitamins 1 TAB DAILY 10/11 1000 AC 10/17 Therapeutic PO 0952 Oxycodone HCl 5 MG Q6H PRN 10/11 0200 AC 10/16 PO 1830 Vancomycin HCl 1,000 MG Q24H / 1600 AC 10/16 Sodium Chloride 250 ML IV 1646 Vitamin A 10,000 UNITS DAILY 10/11 1000 AC 10/16 PO 1240 Zolpidem Tartrate 5 MG AT BEDTIME 10/11 0200 AC 10/16 PO 2203 Vital Signs & I&O Last 24 Hrs of Vitals and I&O: Vital Signs Date Time Temp Pulse Resp B/P B/P Pulse O2 O2 Flow FiO2 Mean Ox Delivery Rate 10/17 0630 98.4 102 18 124/60 95 Room Air 10/16 2230 98.0 98 19 118/68 96 Room Air 10/16 1522 98.1 91 20 92/50 97 10/16 1437 98.1 97 18 100/56 96 Room Air Intake & Output 10/17 1600 10/17 0800 10/17 0000 Intake Total 120 450 Output Total 450 650 Balance -330 -200 Intake, Oral 120 450 Output, Stool 50 200 Output, Urine 400 450 Room air oxygen saturation 95% exam of his chest shows occasional rhonchi cardiac exam regular S1 and S2 without murmurs Impression/Plan Impression/Plan Impression/Plan: 56-year-old with multiple medical problems recent diagnosis of non-small cell lung cancer status post radiation therapy to the right upper lobe has had chronic hemoptysis over past month associated with hoarseness. This is complicated by what appears to be polymicrobial pneumonia. Recommendations: Sputum for cytology. ENT evaluation to exclude paralyzed vocal cord. He will need fiberoptic bronchoscopy timing to be determined based on other medical issues. Continue current medical regimen follow-up sputum cytology and ENT evaluation
--- NOTE | 2016-10-17 10:42 | PN- Infect Dx ---
Subjective Subjective: Afebrile. He complains of abdominal pain secondary to his muscle spasms. He continues to report hemoptysis. Objective Last 24 Hrs of Vital Signs/I&O Vital Signs Date Time Temp Pulse Resp B/P B/P Pulse O2 O2 Flow FiO2 Mean Ox Delivery Rate 10/17 0630 98.4 102 18 124/60 95 Room Air 10/16 2230 98.0 98 19 118/68 96 Room Air 10/16 1522 98.1 91 20 92/50 97 10/16 1437 98.1 97 18 100/56 96 Room Air Intake & Output 10/17 1600 10/17 0800 10/17 0000 Intake Total 120 450 Output Total 450 650 Balance -330 -200 Intake, Oral 120 450 Output, Stool 50 200 Output, Urine 400 450 Physical Exam Other Physical Findings: He appears comfortable in no acute distress Lungs are clear Heart regular rhythm with no murmur Back dressings intact with wounds not examined Extremities PICC in the right upper extremity with no inflammation at the site Results Last 24 Hours of Lab Results: Laboratory Tests 10/17 10/16 0510 1915 Hematology CBC w Diff NO MAN DIFF REQ NO MAN DIFF REQ WBC (4.8 - 10.8 /CUMM) 13.4 H 19.2 H RBC (4.70 - 6.10 /CUMM) 3.46 L 3.72 L Hgb (14.0 - 18.0 G/DL) 9.1 L 9.6 L Hct (42 - 52 %) 27.9 L 30.0 L MCV (80.0 - 94.0 FL) 80.6 80.5 MCH (27.0 - 31.0 PG) 26.3 L 25.9 L RDW (11.5 - 14.5 %) 16.0 H 15.9 H Plt Count (130 - 400 /CUMM) 632 H 679 H MPV (7.4 - 10.4 FL) 6.7 L 6.9 L Gran % (42.2 - 75.2 %) 74.2 77.1 H Lymphocytes % (20.5 - 51.1 %) 11.7 L 10.3 L Monocytes % (1.7 - 9.3 %) 4.4 4.0 Eosinophils % (0 - 5 %) 9.4 H 8.2 H Basophils % (0.0 - 2.0 %) 0.3 0.4 Absolute Granulocytes (1.4 - 6.5 /CUMM) 10.0 H 14.8 H Absolute Lymphocytes (1.2 - 3.4 /CUMM) 1.6 2.0 Absolute Monocytes (0.10 - 0.60 /CUMM) 0.6 0.8 H Absolute Eosinophils (0.0 - 0.7 /CUMM) 1.3 1.6 Absolute Basophils (0.0 - 0.2 /CUMM) 0 0.1 PUBS MCHC (33.0 - 37.0 G/DL) 32.6 L 32.2 L Last 24 Hours of Gallito Results: No recent cultures Assessment/Plan Impression: MRSA bacteremia most likely secondary to pneumonia, with the recent CT scan revealing bilateral opacities and with his sputum culture positive for MRSA as well as Enterobacter. He remains afebrile with white blood cell count decreased today on Vancomycin and Meropenem Day 4 of treatment. His MRI results suggest the possibility of osteomyelitis of the left iliac wing as well as a fluid collection at the perineum, which may also represent possible sources of sepsis, and, given the appearance of his decubiti, feel he may require further debridement and bone biopsy. Pulmonary input noted regarding hemoptysis in the background of a recent diagnosis [facility]otactic radiation treatments at [facility], with the recent drop in his H&H requiring blood transfusions. Suggestion: 1. Await Plastic surgery evaluation of his wounds and need for debridement 2. Further management of his hemoptysis per Pulmonary 3. May need to consider MADHU but will discuss further after evaluated by Plastics 4. Follow-up Vancomycin trough level 5. Continue Vancomycin (at the current dose pending above) and Meropenem
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
[2016-10-17 22:02] VITALS: BP 102/62
[2016-10-18 06:59] VITALS: BP 112/68
[2016-10-18 09:02] LABS: ABSOLUTE BASOPHIL COUNT 0.1 /CUMM (0.0-0.2); ABSOLUTE EOSINOPHIL COUNT 1.2 /CUMM (0.0-0.7); ABSOLUTE GRANULOCYTE CT 9.6 /CUMM (1.4-6.5); ABSOLUTE LYMPH COUNT 1.8 /CUMM (1.2-3.4); ABSOLUTE MONOCYTE COUNT 0.8 /CUMM (0.10-0.60); BASOPHIL % 0.4 % (0.0-2.0); GRANULOCYTE % 71.4 % (42.2-75.2); HEMATOCRIT 28.5 % (42-52); MEAN CORPUSCULAR HGB CONC 32.6 G/DL (33.0-37.0); MEAN CORPUSCULAR VOLUME 79.8 FL (80.0-94.0); MEAN PLATELET VOLUME 6.6 FL (7.4-10.4); PLATELET COUNT 724 /CUMM (130-400); RBC DISTRIBUTION WIDTH 16.2 % (11.5-14.5); RED BLOOD CELL CT 3.57 /CUMM (4.70-6.10); WHITE BLOOD CELL COUNT 13.4 /CUMM (4.8-10.8)
--- NOTE | 2016-10-18 10:26 | INTERVENTIONAL RADIOLOGY RPT ---
CLINICAL HISTORY: This patient is a 56-year-old male with a history of pneumonia and bacteremia, who presents to interventional radiology for placement of a single lumen PICC for central venous access. PROCEDURES: 1. Real-time ultrasound-guided access into the right brachial vein after documentation of selected vessel patency, and permanent imaging storing in the patient records. 2. Right upper extremity and central venogram. 3. Placement of a PICC. PHYSICIANS: Dr. Bartolo Friend (attending). The attending radiologist was present during the procedure and related imaging, and reviewed the report. MEDICATIONS: 4 mL of 1% lidocaine SQ. COMPLICATIONS: None. ESTIMATED BLOOD LOSS: 5 mL. SPECIMENS: None. CONTRAST: 15 mL Omnipaque 300 FLUOROSCOPY TIME: 7.4 minutes. PROCEDURE NOTE: Informed consent was obtained from the patient prior to the procedure. During this process, the procedure and potential alternatives were explained along with the intended outcome and benefits. The risks of the procedure, including the possibility of an unsuccessful procedure, as well as the risk of not doing the procedure, were discussed. The patient was given the opportunity to ask questions regarding the procedure and appeared competent to make decisions. A signed consent form documenting this discussion was placed in the medical record. A time-out procedure was performed. The patient was placed supine on the fluoroscopy table. Prior to prepping the patient, a limited sonogram of the right arm was performed to choose appropriate access, and this arm was prepped and draped in the usual sterile fashion. All elements of maximal sterile barrier technique followed including use of cap, mask, sterile gown, sterile gloves, a sterile full body drape and hand hygiene. Also followed skin preparation with 2% chlorhexidine for cutaneous antisepsis, and sterile ultrasound preparation with sterile gel and probe cover when applicable. Venous access was achieved into the right brachial vein using ultrasound and fluoroscopic guidance with a 21-gauge needle. The 0.018 measuring wire from the PICC was advanced through the needle into the brachial vein but could not be advanced past the central subclavian vein. The needle was exchanged over the wire for the peel-away sheath. Right upper extremity venogram was then performed which demonstrated probable spasm within the axillary vein and a tight stenosis in the central subclavian vein near the junction with the internal jugular vein. A 0.018 inch cope wire was advanced through the sheath and manipulated into the inferior vena cava. The intravascular length was measured and the catheter was trimmed to the correct length. The inner dilator was removed and the PICC was advanced over the wire; however, it could not be advanced past the area of stenosis despite several attempts. A 4 Lithuanian single-lumen PICC was then advanced over the wire but it also could not be advanced past the area of stenosis. A 0.035 inch stiff Glidewire was then advanced through the sheath alongside the 0.018 inch wire. The wire was manipulated past the stenosis into the IVC. The 0.018 inch wire was then removed. A 5 Lithuanian single lumen PICC was successfully advanced over the stiff Glidewire past the area of stenosis with the tip positioned at the superior cavoatrial junction. The wire was removed followed by removal of the peel-away sheath. The catheter was tested successfully and secured to the skin with its tip in the cavoatrial junction. A spot image was taken. FINDINGS: 1. Patent right brachial vein. 2. 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 3. Successful placement of a 5 Fr single lumen PICC that measures 45 cm in length. The tip is located at the superior cavoatrial junction. IMPRESSION: Technically challenging right upper extremity PICC placement. PLAN: 1. The patient was stable after the procedure and was transferred to the interventional recovery area. The patient will be transferred back to his medical room. 2. The catheter may be used immediately.
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
--- NOTE | 2016-10-18 13:35 | PN- Infect Dx ---
Subjective Subjective: Afebrile. He continues to complain of abdominal spasms and hemoptysis Objective Last 24 Hrs of Vital Signs/I&O Vital Signs Date Time Temp Pulse Resp B/P B/P Pulse O2 O2 Flow FiO2 Mean Ox Delivery Rate 10/18 0659 98.1 80 16 112/68 98 Room Air 10/17 2202 98.3 91 20 102/62 97 Room Air Intake & Output 10/18 1600 10/18 0800 10/18 0000 Intake Total 370 450 Output Total 525 450 Balance -155 0 Intake, IV 250 Intake, Oral 120 450 Output, Stool 75 200 Output, Urine 450 250 Physical Exam Other Physical Findings: He appears comfortable in no acute distress Lungs decreased breath sounds both upper lobes Heart regular rhythm with no murmur Back bilateral greater trochanteric ulcers with minimal amounts of necrosis, with no purulence or surrounding erythema Extremities PICC in the right upper extremity with no inflammation at the site Results Last 24 Hours of Lab Results: Laboratory Tests 10/18 10/17 0520 1500 Chemistry Sodium (137 - 145 mmol/L) 138 Potassium (3.5 - 5.1 mmol/L) 4.6 Chloride (98 - 107 mmol/L) 100 Carbon Dioxide (22 - 30 mmol/L) 27 Anion Gap (5 - 16) 12 BUN (9 - 20 mg/dL) 21 H Creatinine (0.7 - 1.2 mg/dL) 0.6 L Estimated GFR (>60 ml/min) > 60 BUN/Creatinine Ratio (7 - 25 %) 35.0 H Hematology CBC w Diff NO MAN DIFF REQ WBC (4.8 - 10.8 /CUMM) 13.4 H RBC (4.70 - 6.10 /CUMM) 3.57 L Hgb (14.0 - 18.0 G/DL) 9.3 L Hct (42 - 52 %) 28.5 L MCV (80.0 - 94.0 FL) 79.8 L MCH (27.0 - 31.0 PG) 26.0 L RDW (11.5 - 14.5 %) 16.2 H Plt Count (130 - 400 /CUMM) 724 H MPV (7.4 - 10.4 FL) 6.6 L Gran % (42.2 - 75.2 %) 71.4 Lymphocytes % (20.5 - 51.1 %) 13.1 L Monocytes % (1.7 - 9.3 %) 6.1 Eosinophils % (0 - 5 %) 9.0 H Basophils % (0.0 - 2.0 %) 0.4 Absolute Granulocytes (1.4 - 6.5 /CUMM) 9.6 H Absolute Lymphocytes (1.2 - 3.4 /CUMM) 1.8 Absolute Monocytes (0.10 - 0.60 /CUMM) 0.8 H Absolute Eosinophils (0.0 - 0.7 /CUMM) 1.2 Absolute Basophils (0.0 - 0.2 /CUMM) 0.1 PUBS MCHC (33.0 - 37.0 G/DL) 32.6 L Toxicology Random Vancomycin (ug/ml) 7.8 Last 24 Hours of Gallito Results: No recent cultures Assessment/Plan Impression: MRSA bacteremia most likely secondary to pneumonia, with the recent CT scan revealing bilateral opacities and with his sputum culture positive for MRSA as well as Enterobacter. He remains afebrile with white blood cell count only mildly elevated on Vancomycin and Meropenem Day 5 of treatment. His Vancomycin trough level is low, and his dose can be increased. His MRI results suggest the possibility of osteomyelitis of the left iliac wing as well as a fluid collection at the perineum, and he is awaiting plastic surgery evaluation for possible debridement/bone biopsy. Pulmonary input noted regarding hemoptysis in the background of a [facility]actic radiation treatments at [place], with the recent drop in his H&H requiring blood transfusions. Suggestion: 1. Await Plastic surgery evaluation of his wounds/need for bone biopsy/ debridement 2. Further management of his hemoptysis per Pulmonary 3. May need to consider MADHU but will discuss further after evaluated by Plastics 4. Increase Vancomycin to 1.5 g IV every 24 hours 5. Continue Meropenem
[2016-10-18 14:01] VITALS: BP 100/70
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
[2016-10-18 22:51] VITALS: BP 90/50
[2016-10-19 07:42] VITALS: BP 92/56
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
--- NOTE | 2016-10-19 09:31 | PN- Pulmonary ---
TRACIE PETERSON 10/19/16930: Subjective HPI/Critical Care Issues: Patient was seen and examined today. Patient alert, white, oriented 3. Patient is still complaining from abdominal pain that is chronic. He stated his breathing status the same report blood that was yesterday around teaspoon amounts otherwise he deny any other episode of hemoptysis since then. He denies any fever, chills, chest pain or difficulty breathing. He is currently in room air with oxygen saturation more than 90%, afebrile. Objective Current Medications: Current Medications Sig/Nelson Start time Last Medication Dose Route Stop Time Status Admin Alteplase, 2 MG ONE ONE 10/19 1000 DC Recombinant IV 10/19 1001 Amitriptyline HCl 25 MG AT BEDTIME 10/11 0200 AC 10/18 PO 211 Ascorbic Acid 1,000 MG DAILY 10/11 1000 AC 10/19 PO 0926 Aspirin Buffered 81 MG DAILY 10/11 1000 AC 10/19 PO 0926 Bacitracin 1 LAI Q4 10/11 0600 AC 10/19 TOP 0927 Cyclobenzaprine HCl 10 MG TID PRN 10/11 0200 AC 10/14 PO 2051 Diazepam 2 MG TID PRN 10/11 0200 AC 10/15 PO 1010 Enoxaparin Sodium 40 MG DAILY 10/11 1000 AC 10/19 SC 0926 Gabapentin 300 MG BID 10/11 1000 AC 10/19 PO 0926 Guaifenesin 600 MG Q12 10/11 1000 AC 10/19 PO 0926 Hydromorphone HCl 2.5 MG Q4 HRS NEEDED PRN 10/14 1515 AC 10/19 IV 0915 Ibuprofen 200 MG Q6P PRN 10/11 0200 AC PO Meropenem 1 GM IQ8 10/15 1600 AC 10/19 IV 0925 Midodrine 5 MG 0800,1200,1600 10/11 0800 AC 10/19 PO 0926 Mirtazapine 30 MG AT BEDTIME 10/11 0200 AC 10/18 PO 211 Multivitamins 1 TAB DAILY 10/11 1000 AC 10/19 Therapeutic PO 0926 Oxycodone HCl 5 MG Q6H PRN 10/11 0200 AC 10/18 PO 1900 Vancomycin HCl 1,500 MG Q24 10/19 1000 CAN IV Vancomycin HCl 1,500 MG DAILY 10/19 1000 AC 10/19 Sodium Chloride 250 ML IV 1044 Vancomycin HCl 1,000 MG Q12H 10/17 1700 DC 10/18 Sodium Chloride 250 ML IV 0518 Vitamin A 10,000 UNITS DAILY 10/11 1000 AC 10/19 PO 09 Zolpidem Tartrate 5 MG AT BEDTIME 10/11 0200 AC 10/18 PO 2116 Vital Signs & I&O Last 24 Hrs of Vitals and I&O: Vital Signs Date Time Temp Pulse Resp B/P B/P Pulse O2 O2 Flow FiO2 Mean Ox Delivery Rate 10/19 0742 98.2 87 20 92/56 90 Room Air 10/18 2251 98.2 90 20 90/50 90 Room Air 10/18 1531 Room Air 2.0L 10/18 1401 98.6 70 20 100/70 97 Room Air Intake & Output 10/19 1600 10/19 0800 10/19 0000 Intake Total Output Total 550 275 Balance -550 -275 Output, Stool 100 Output, Urine 450 275 Exam General Appearance: alert, awake, comfortable, cachetic Head: atraumatic Neck: supple Respiratory: normal breath sounds, chest non-tender, no respiratory distress, decreased breath sounds Cardiovascular: regular rate/rhythm Abdomen: normal bowel sounds, soft, tenderness Back: back ulcer with minimal necrosis Extremities: no edema, PICC line in the right upper ext. Results Last 24 Hrs of Lab Results: Lab was not done at the time of writing the note. Impression/Plan Impression/Plan Impression/Plan: 56-year-old man with multiple medical problems recent diagnosis of non-small cell lung cancer status post radiation therapy to the right upper lobe has had chronic hemoptysis over past month associated with hoarseness. This is complicated by what appears to be polymicrobial pneumonia. Problem list: -Non-small cell lung cancer -Osteomyelitis -Hemoptysis -MRSA bacteremia, wound ulcer -Chronic anemia Recommendation: -Continue current antibiotic per ID team. -Please obtain records from you regarding cancer diagnosis, treatment -Patient will be taken to the OR by the surgical team on , we'll proceed with bronchoscopy along with the OR plan on . -Please obtain chest x-ray today -Please obtain labs including coags -DVT prophylaxis all time RICHARD MAHARAJ MD 10/19/16 1026: Impression/Plan Impression/Plan Recommendations: I, Richard Rubina, M.D. have examined this patient, reviewed available EMR data, personally reviewed images, discussed with resident/PA/COMMISSION SPECIALIST, discussed management plan with housestaff and nursing staff, discussed managment plan all of healthcare providers, discussed management plan with patient and/or family, agreed with resident/PA/COMMISSION SPECIALIST. The past history and parts of the chart have been autopopulated. Impression 56 year old man * Lung cancer * Osteomyelitis * hemoptysis * MRSA bacteremia * paresis Plan - f/u consultants recs - obtain records from [facility] regarding cancer diagnosis, treatment and details - Dr. Braun planning on taking patient to OR on - will proceed with bronchoscopy along with OR plan on for an evaluation of the tracheobronchial tree and if any obvious bleeding will plan for embolization DVT prophylaxis at all times In anticipation of a surgical intervention and possible biopsy on - obtain coagulation studies Repeat CXR today
[2016-10-19 11:34] LABS: PT 12.3 SEC (9.4-12.5)
[2016-10-19 11:42] LABS: ABSOLUTE BASOPHIL COUNT 0 /CUMM (0.0-0.2); ABSOLUTE EOSINOPHIL COUNT 1.4 /CUMM (0.0-0.7); ABSOLUTE GRANULOCYTE CT 8.8 /CUMM (1.4-6.5); ABSOLUTE LYMPH COUNT 1.5 /CUMM (1.2-3.4); ABSOLUTE MONOCYTE COUNT 0.6 /CUMM (0.10-0.60); BASOPHIL % 0.3 % (0.0-2.0); EOSINOPHIL % 11.6 % (0-5); GRANULOCYTE % 70.8 % (42.2-75.2); MEAN CORPUSCULAR HGB 26.4 PG (27.0-31.0); MEAN CORPUSCULAR VOLUME 79.9 FL (80.0-94.0); MEAN PLATELET VOLUME 6.4 FL (7.4-10.4); PLATELET COUNT 703 /CUMM (130-400); RBC DISTRIBUTION WIDTH 15.7 % (11.5-14.5); RED BLOOD CELL CT 3.51 /CUMM (4.70-6.10); WHITE BLOOD CELL COUNT 12.4 /CUMM (4.8-10.8)
--- NOTE | 2016-10-19 13:12 | PN- Plastic Surgery ---
Subjective Subjective: MRI reviewed conversations regarding care discussed with Dr. Garrett and Dr. Morelos and Dr. Cespedes. Review of Systems: No new complaints all systems negative Objective Vital Signs and I&Os Vital Signs Date Time Temp Pulse Resp B/P B/P Pulse O2 O2 Flow FiO2 Mean Ox Delivery Rate 10/19 0742 98.2 87 20 92/56 90 Room Air 10/18 2251 98.2 90 20 90/50 90 Room Air 10/18 1531 Room Air 2.0L 10/18 1401 98.6 70 20 100/70 97 Room Air Intake & Output 10/19 1600 10/19 0800 10/19 0000 10/18 1600 10/18 0810/18 0000 Intake Total 480 370 450 Output Total 550 275 400 525 450 Balance -550 -275 80 -155 0 Intake, IV 250 Intake, Oral 480 120 450 Output, Stool 100 75 200 Output, Urine 450 275 400 450 250 Physical Exam: No change in wounds. White blood cell count normalizing Current Medications: Current Medications Sig/Nelson Start time Last Medication Dose Route Stop Time Status Admin Alteplase, 2 MG ONE ONE 10/19 1000 DC 10/19 Recombinant IV 10/19 1001 1159 Amitriptyline HCl 25 MG AT BEDTIME 10/11 0200 AC 10/18 PO 2117 Ascorbic Acid 1,000 MG DAILY 10/11 1000 AC 10/19 PO 0926 Aspirin Buffered 81 MG DAILY 10/11 1000 AC 10/19 PO 0926 Bacitracin 1 ALI Q4 10/11 0600 AC 10/19 TOP 0927 Cyclobenzaprine HCl 10 MG TID PRN 10/11 0200 AC 10/14 PO 2051 Diazepam 2 MG TID PRN 10/11 0200 AC 10/15 PO 1010 Enoxaparin Sodium 40 MG DAILY 10/11 1000 AC 10/19 SC 0926 Gabapentin 300 MG BID 10/11 1000 AC 10/19 PO 0926 Guaifenesin 600 MG Q12 10/11 1000 AC 10/19 PO 0926 Hydromorphone HCl 2.5 MG Q4 HRS NEEDED PRN 10/14 1515 AC 10/19 IV 1246 Ibuprofen 200 MG Q6P PRN 10/11 0200 AC PO Meropenem 1 GM IQ8 10/15 1600 AC 05 IV 0925 Midodrine 5 MG 0800,1200,1600 10/11 0800 AC 10/19 PO 09 Mirtazapine 30 MG AT BEDTIME 10/11 0200 AC 10/18 PO 211 Morphine Sulfate 15 MG BID 10/19 1238 AC PO Multivitamins 1 TAB DAILY 10/11 1000 AC 10/19 Therapeutic PO 09 Oxycodone HCl 5 MG Q6H PRN 10/11 0200 DC 10/19 PO 1128 Vancomycin HCl 1,500 MG Q24 10/19 1000 CAN IV Vancomycin HCl 1,500 MG DAILY 10/19 1000 AC 10/19 Sodium Chloride 250 ML IV 1044 Vancomycin HCl 1,000 MG Q12H 10/17 1700 DC 10/18 Sodium Chloride 250 ML IV 0518 Vitamin A 10,000 UNITS DAILY 10/11 1000 AC 10/19 PO 925 Zolpidem Tartrate 5 MG AT BEDTIME 10/11 0200 AC 10/18 PO 2115 Results Last 48 Hours of Labs: Laboratory Tests 10/19 10/18 1112 0520 Chemistry Sodium (137 - 145 mmol/L) 138 Potassium (3.5 - 5.1 mmol/L) 4.6 Chloride (98 - 107 mmol/L) 100 Carbon Dioxide (22 - 30 mmol/L) 27 Anion Gap (5 - 16) 12 BUN (9 - 20 mg/dL) 21 H Creatinine (0.7 - 1.2 mg/dL) 0.6 L Estimated GFR (>60 ml/min) > 60 BUN/Creatinine Ratio (7 - 25 %) 35.0 H Coagulation PT (9.4 - 12.5 SEC) 12.3 INR (0.90 - 1.17) 1.17 Hematology CBC w Diff NO MAN DIFF REQ NO MAN DIFF REQ WBC (4.8 - 10.8 /CUMM) 12.4 H 13.4 H RBC (4.70 - 6.10 /CUMM) 3.51 L 3.57 L Hgb (14.0 - 18.0 G/DL) 9.2 L 9.3 L Hct (42 - 52 %) 28.0 L 28.5 L MCV (80.0 - 94.0 FL) 79.9 L 79.8 L MCH (27.0 - 31.0 PG) 26.4 L 26.0 L RDW (11.5 - 14.5 %) 15.7 H 16.2 H Plt Count (130 - 400 /CUMM) 703 H 724 H MPV (7.4 - 10.4 FL) 6.4 L 6.6 L Gran % (42.2 - 75.2 %) 70.8 71.4 Lymphocytes % (20.5 - 51.1 %) 12.2 L 13.1 L Monocytes % (1.7 - 9.3 %) 5.1 6.1 Eosinophils % (0 - 5 %) 11.6 H 9.0 H Basophils % (0.0 - 2.0 %) 0.3 0.4 Absolute Granulocytes (1.4 - 6.5 /CUMM) 8.8 H 9.6 H Absolute Lymphocytes (1.2 - 3.4 /CUMM) 1.5 1.8 Absolute Monocytes (0.10 - 0.60 /CUMM) 0.6 0.8 H Absolute Eosinophils (0.0 - 0.7 /CUMM) 1.4 1.2 Absolute Basophils (0.0 - 0.2 /CUMM) 0 0.1 PUBS MCHC (33.0 - 37.0 G/DL) 33.0 32.6 L / 1500 Toxicology Random Vancomycin (ug/ml) 7.8 Assessment/Plan Assessment/Plan Patient with findings on MRI suggestive of left ischial tuberosity osteomyelitis. We'll debride in the operating room with concurrent bronchoscopy. MRI findings suggestive of genitourinary issue, urology consult should be considered.
[2016-10-19 14:07] VITALS: BP 98/60
--- NOTE | 2016-10-19 15:44 | Patient Discharge Instructions ---
Discharge Instructions General Discharge Information You were seen/treated for: 1) MRSA bacteremia most likely secondary to MRSA pneumonia. 2) Osteomyelitis-- left iliac wing 3) Hemoptysis with no evidence of malignant cells seen on sputum cytology, but with h/o NSCLC Special Instructions: 1. Please follow-up with your primary care provider after discharge 2. Please follow-up with your displayer merchandise after discharge 3. Please follow-up with wound care after discharge 4. Please follow up with your Oncologist at [facility] after discharge. 5. Please make an appointment to see Dr. Wayne within one week from discharge regarding a possibly cystoscopy. 6. Please make an appointment to see Dr. Walker within one week from discharge for further wound care. PLEASE CHECK CBC, BUN/CR, ESR AND VANCOMYCIN TROUGH LEVEL EVERY WEEK AND CC RESULTS TO DR. DARREN SAMANO MD. PLEASE MAKE SURE HE IS INFORMED BEFORE THE COURSE OF ANTICBIOTICS IS STOPPED. Diet Continue normal diet: Yes Activity Activity Limited to: Out of Bed to Chair Acute Coronary Syndrome Inclusion Criteria At DC or during hospital stay patient has or had the following: ACS DIAGNOSIS No Discharge Core Measures Meds if any: Prescribed or Continued at Discharge Meds if any: NOT Prescribed or Continued at Discharge Congestive Heart Failure Inclusion Criteria At DC or during hospital stay patient has or had the following: CHF DIAGNOSIS No Discharge Core Measures Meds if any: Prescribed or Continued at Discharge Meds if any: NOT Prescribed or Continued at Discharge Cerebrovascular accident Inclusion Criteria At DC or during hospital stay patient has or had the following: CVA/TIA Diagnosis No Discharge Core Measures Meds if any: Prescribed or Continued at Discharge Meds if any: NOT Prescribed or Continued at Discharge Venous thromboembolism Inclusion Criteria VTE Diagnosis No VTE Type NONE VTE Confirmed by (Test) NONE Discharge Core Measures - Per Current guidelines, there needs to be overlap - treatment for the first 5 days of Warfarin therapy. - If discharged on Warfarin prior to 5 days of - overlap therapy, the patient will need to be - assessed for post discharge needs including - *Post discharge parental anticoagulation - *Warfarin and/or parental anticoagulation education - *Follow up date to check INR post discharge At least 5 days overlap therapy as Inpatient No Meds if any: Prescribed or Continued at Discharge Note: Overlap Therapy is Warfarin and Anticoagulant Meds if any: NOT Prescribed or Continued at Discharge
--- NOTE | 2016-10-19 22:12 | RADIOLOGY REPORT ---
EXAMINATION: XR PORTABLE CHEST CLINICAL INFORMATION: Hemoptysis. COMPARISON: CT chest 10/11/2016. Chest x-ray 10/10/2016. TECHNIQUE: Portable frontal view of the chest was obtained. 9:22 PM FINDINGS: Right-sided PICC line catheter tip at caval atrial junction. Dense consolidation persists at the left lung base. Subtle patchy airspace disease seen in the perihilar lung, right greater than left persists is well. Transpedicular screws at upper thoracic spine. IMPRESSION: 1. Right-sided PICC line catheter at cavoatrial junction. 2. Persistent dense consolidation at left lung base subtle patchy perihilar airspace disease similar to chest x-ray 10/10/2016.
[2016-10-20 01:55] VITALS: BP 96/58
[2016-10-20 06:59] VITALS: BP 86/50
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
[2016-10-20 08:04] LABS: ABSOLUTE BASOPHIL COUNT 0.1 /CUMM (0.0-0.2); ABSOLUTE EOSINOPHIL COUNT 1.4 /CUMM (0.0-0.7); ABSOLUTE GRANULOCYTE CT 9.6 /CUMM (1.4-6.5); ABSOLUTE LYMPH COUNT 1.8 /CUMM (1.2-3.4); ABSOLUTE MONOCYTE COUNT 0.6 /CUMM (0.10-0.60); BASOPHIL % 0.5 % (0.0-2.0); EOSINOPHIL % 10.5 % (0-5); GRANULOCYTE % 71.4 % (42.2-75.2); HEMATOCRIT 27.4 % (42-52); MEAN CORPUSCULAR HGB 26.4 PG (27.0-31.0); MEAN CORPUSCULAR HGB CONC 32.9 G/DL (33.0-37.0); MEAN PLATELET VOLUME 6.4 FL (7.4-10.4); PLATELET COUNT 715 /CUMM (130-400); RBC DISTRIBUTION WIDTH 16.2 % (11.5-14.5); RED BLOOD CELL CT 3.42 /CUMM (4.70-6.10); WHITE BLOOD CELL COUNT 13.5 /CUMM (4.8-10.8)
--- NOTE | 2016-10-20 10:57 | PN- Pulmonary ---
Subjective HPI/Critical Care Issues: pt seen and examined streaked hemoptysis persists, no overt bleeding feeling well otherwise Objective Current Medications: Current Medications Sig/Nelson Start time Last Medication Dose Route Stop Time Status Admin Amitriptyline HCl 25 MG AT BEDTIME 10/11 0200 AC 10/19 PO 2158 Ascorbic Acid 1,000 MG DAILY 10/11 1000 AC 10/20 PO 0752 Aspirin Buffered 81 MG DAILY 10/11 1000 AC 10/20 PO 0752 Bacitracin 1 LAI Q4 10/11 0600 AC 10/20 TOP 0556 Cyclobenzaprine HCl 10 MG TID PRN 10/11 0200 AC 10/14 PO 2051 Diazepam 2 MG TID PRN 10/11 0200 AC 10/15 PO 1010 Enoxaparin Sodium 40 MG DAILY 10/11 1000 AC 10/20 SC 0753 Gabapentin 300 MG BID 10/11 1000 AC 10/19 PO 2158 Guaifenesin 600 MG Q12 10/11 1000 AC 10/20 PO 0752 Hydromorphone HCl 2.5 MG Q4 HRS NEEDED PRN 10/14 1515 AC 10/20 IV 0749 Ibuprofen 200 MG Q6P PRN 10/11 0200 AC PO Meropenem 1 GM IQ8 / 0000 AC 10/20 IV 0752 Meropenem 1 GM IQ8 / 1600 DC 10/19 IV 0925 Midodrine 5 MG 0800,1200,1600 10/11 0800 AC 10/20 PO 0752 Mirtazapine 30 MG AT BEDTIME 10/11 0200 AC 10/19 PO 2157 Morphine Sulfate 15 MG BID 10/19 1238 AC 10/19 PO 2158 Multivitamins 1 TAB DAILY 10/11 1000 AC 10/20 Therapeutic PO 0753 Oxycodone HCl 5 MG Q6H PRN 10/11 0200 DC 10/19 PO 1128 Vancomycin HCl 1,500 MG DAILY 10/19 1000 AC 10/19 Sodium Chloride 250 ML IV 1044 Vitamin A 10,000 UNITS DAILY 10/11 1000 AC 10/20 PO 075 Zolpidem Tartrate 5 MG AT BEDTIME 10/11 0200 AC 10/19 PO 215 Vital Signs & I&O Last 24 Hrs of Vitals and I&O: Vital Signs Date Time Temp Pulse Resp B/P B/P Pulse O2 O2 Flow FiO2 Mean Ox Delivery Rate 05/10 0659 98.1 98 16 86/50 96 Room Air 10/20 0155 98.5 78 16 96/58 97 10/19 1448 Room Air 2.0L 10/19 1407 98.6 80 18 98/60 96 Room Air Intake & Output 10/20 1600 10/20 0800 10/20 0000 Intake Total 200 300 Output Total 250 500 Balance -50 -200 Intake, Oral 200 300 Output, Stool 100 Output, Urine 250 400 Exam Other Physical Findings: gen awake and alert heent ncat cvs s1, s2 lungs rare rhonchi abd soft ext paresis Results Last 24 Hrs of Lab Results: Laboratory Tests 10/20/16 0603: CBC w Diff NO MAN DIFF REQ, RBC 3.42 L, MCV 80.0, MCH 26.4 L, RDW 16.2 H, MPV 6.4 L, Gran % 71.4, Lymphocytes % 13.3 L, Monocytes % 4.3, Eosinophils % 10.5 H, Basophils % 0.5, Absolute Granulocytes 9.6 H, Absolute Lymphocytes 1.8, Absolute Monocytes 0.6, Absolute Eosinophils 1.4, Absolute Basophils 0.1, PUBS MCHC 32.9 L 10/19/16 1112: PT 12.3, INR 1.17, CBC w Diff NO MAN DIFF REQ, RBC 3.51 L, MCV 79.9 L, MCH 26.4 L, RDW 15.7 H, MPV 6.4 L, Gran % 70.8, Lymphocytes % 12.2 L, Monocytes % 5.1, Eosinophils % 11.6 H, Basophils % 0.3, Absolute Granulocytes 8.8 H, Absolute Lymphocytes 1.5, Absolute Monocytes 0.6, Absolute Eosinophils 1.4, Absolute Basophils 0, PUBS MCHC 33.0 Impression/Plan Impression/Plan Impression/Plan: Impression 56 year old man * Lung cancer * Osteomyelitis * hemoptysis * MRSA bacteremia * paresis Plan - obtain records from [facility] regarding cancer diagnosis, treatment and details - Dr. Braun planning on taking patient to OR on - will proceed with bronchoscopy along with OR plan on for an evaluation of the tracheobronchial tree and if any obvious bleeding will plan for embolization DVT prophylaxis at all times Repeat CXR today
--- NOTE | 2016-10-20 12:51 | PN- Infect Dx ---
Subjective Subjective: Afebrile. He notes minimal hemoptysis over the last 2 days. He still reports severe abdominal muscle spasms Objective Last 24 Hrs of Vital Signs/I&O Vital Signs Date Time Temp Pulse Resp B/P B/P Pulse O2 O2 Flow FiO2 Mean Ox Delivery Rate 10/20 1059 Room Air 2.0L 10/20 1057 Room Air 2.0L 10/20 1056 Room Air 2.0L 10/20 0659 98.1 98 16 86/50 96 Room Air 10/20 0155 98.5 78 16 96/58 97 10/19 1448 Room Air 2.0L 10/19 1407 98.6 80 18 98/60 96 Room Air Intake & Output 10/20 1600 10/20 0800 10/20 0000 Intake Total 200 300 Output Total 250 500 Balance -50 -200 Intake, Oral 200 300 Output, Stool 100 Output, Urine 250 400 Physical Exam Other Physical Findings: He appears comfortable in no acute distress Lungs are clear Heart regular rhythm with no murmur Back dressings intact over his decubiti perineum difficult to examine with no obvious Inflammation Results Last 24 Hours of Lab Results: Laboratory Tests 10/20 602 Hematology CBC w Diff NO MAN DIFF REQ WBC (4.8 - 10.8 /CUMM) 13.5 H RBC (4.70 - 6.10 /CUMM) 3.42 L Hgb (14.0 - 18.0 G/DL) 9.0 L Hct (42 - 52 %) 27.4 L MCV (80.0 - 94.0 FL) 80.0 MCH (27.0 - 31.0 PG) 26.4 L RDW (11.5 - 14.5 %) 16.2 H Plt Count (130 - 400 /CUMM) 715 H MPV (7.4 - 10.4 FL) 6.4 L Gran % (42.2 - 75.2 %) 71.4 Lymphocytes % (20.5 - 51.1 %) 13.3 L Monocytes % (1.7 - 9.3 %) 4.3 Eosinophils % (0 - 5 %) 10.5 H Basophils % (0.0 - 2.0 %) 0.5 Absolute Granulocytes (1.4 - 6.5 /CUMM) 9.6 H Absolute Lymphocytes (1.2 - 3.4 /CUMM) 1.8 Absolute Monocytes (0.10 - 0.60 /CUMM) 0.6 Absolute Eosinophils (0.0 - 0.7 /CUMM) 1.4 Absolute Basophils (0.0 - 0.2 /CUMM) 0.1 PUBS MCHC (33.0 - 37.0 G/DL) 32.9 L Last 24 Hours of Gallito Results: No recent cultures Recent Imaging Studies: Chest x-ray October 19 reveals a persistent dense consolidation of the left lung base with subtle patchy perihilar airspace disease Assessment/Plan Impression: MRSA bacteremia most likely secondary to pneumonia, with the CT scan of his chest revealing bilateral opacities and with his sputum culture positive for MRSA and Enterobacter. He remains afebrile with white blood cell count mildly elevated on Vancomycin and Meropenem Day 7 of treatment. He is scheduled for a bone biopsy and debridement of the left ischial tuberosity in the a.m., and this will help determine the optimal duration of antibiotics. His transthoracic echocardiogram was negative, but a MADHU was not done; however, if he is found to have osteomyelitis, this should not be necessary. He is also scheduled for a bronchoscopy, with possible embolization, in the a.m. for evaluation/management of his hemoptysis, with a recent diagnosis [facility]. The significance of the fluid collection at the perineum seen on the MRI is unclear and should be further evaluated. Suggestion: 1. Urology evaluation regarding the MRI findings in the peritoneum 2. Await OR in the a.m. for left ischial tuberosity debridement/biopsy and bronchoscopy/possible embolization 3. May need to consider MADHU based on above results 4. Continue Vancomycin and Meropenem
[2016-10-20 14:04] VITALS: BP 100/58
[2016-10-20 22:19] VITALS: BP 98/60
[2016-10-21 05:38] VITALS: BP 118/70
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
[2016-10-21 07:48] LABS: ABSOLUTE BASOPHIL COUNT 0 /CUMM (0.0-0.2); ABSOLUTE EOSINOPHIL COUNT 1.1 /CUMM (0.0-0.7); ABSOLUTE GRANULOCYTE CT 7.7 /CUMM (1.4-6.5); ABSOLUTE LYMPH COUNT 1.8 /CUMM (1.2-3.4); ABSOLUTE MONOCYTE COUNT 0.6 /CUMM (0.10-0.60); BASOPHIL % 0.4 % (0.0-2.0); EOSINOPHIL % 9.7 % (0-5); GRANULOCYTE % 68.5 % (42.2-75.2); HEMATOCRIT 25.9 % (42-52); MEAN CORPUSCULAR HGB 26.3 PG (27.0-31.0); MEAN CORPUSCULAR HGB CONC 32.5 G/DL (33.0-37.0); MEAN CORPUSCULAR VOLUME 80.9 FL (80.0-94.0); MEAN PLATELET VOLUME 6.4 FL (7.4-10.4); PLATELET COUNT 666 /CUMM (130-400); RBC DISTRIBUTION WIDTH 16.1 % (11.5-14.5); RED BLOOD CELL CT 3.21 /CUMM (4.70-6.10); WHITE BLOOD CELL COUNT 11.2 /CUMM (4.8-10.8)
--- NOTE | 2016-10-21 08:57 | NUR ---
PER DOCTOR DRAKE, WILL HOLD PO MEDICATIONS, WILL GIVE IV MEDICATIONS.
--- NOTE | 2016-10-21 09:25 | PN- Pulmonary ---
Subjective HPI/Critical Care Issues: pt seen and examined consented for pm bronchoscopy today doing well, still with minor hemoptysis afebrile 94% on room air Objective Current Medications: Current Medications Sig/Nelson Start time Last Medication Dose Route Stop Time Status Admin Amitriptyline HCl 25 MG AT BEDTIME 10/11 0200 AC 10/20 PO 2217 Ascorbic Acid 1,000 MG DAILY 10/11 1000 AC 10/20 PO 0752 Aspirin Buffered 81 MG DAILY 10/11 1000 AC 10/20 PO 0752 Bacitracin 1 LAI Q4 10/11 0600 AC 10/21 TOP 0628 Cyclobenzaprine HCl 10 MG TID PRN 10/11 0200 AC 10/14 PO 2051 Diazepam 2 MG TID PRN 10/11 0200 AC 10/15 PO 1010 Enoxaparin Sodium 40 MG DAILY 10/11 1000 AC 10/20 SC 0753 Gabapentin 300 MG BID 10/11 1000 AC 10/20 PO 2217 Guaifenesin 600 MG Q12 10/11 1000 AC 10/20 PO 221 Hydromorphone HCl 1 MG ONCE ONE 10/20 1345 DC 10/20 IV 10/20 1346 1350 Hydromorphone HCl 2.5 MG Q4 HRS NEEDED PRN 10/14 1515 AC 10/21 IV 0806 Ibuprofen 200 MG Q6P PRN 10/11 0200 AC PO Meropenem 1 GM IQ8 10/20 0000 AC 10/21 IV 0007 Midodrine 5 MG 0800,1200,1600 10/11 0800 AC 10/20 PO 1830 Mirtazapine 30 MG AT BEDTIME 10/11 0200 AC 10/20 PO 2217 Morphine Sulfate 15 MG BID 10/19 1238 AC 10/20 PO 2217 Multivitamins 1 TAB DAILY 10/11 1000 AC 10/20 Therapeutic PO 0753 Vancomycin HCl 1,500 MG DAILY 10/19 1000 AC 10/20 Sodium Chloride 250 ML IV 1105 Vitamin A 10,000 UNITS DAILY 10/11 1000 AC 10/20 PO 075 Zolpidem Tartrate 5 MG AT BEDTIME 10/11 0200 AC 10/20 PO 221 Vital Signs & I&O Last 24 Hrs of Vitals and I&O: Vital Signs Date Time Temp Pulse Resp B/P B/P Pulse O2 O2 Flow FiO2 Mean Ox Delivery Rate 10/21 537 98.3 84 20 118/70 94 Room Air 10/20 2219 98.3 77 20 98/60 96 Room Air 10/20 1404 97.5 78 20 100/58 97 10/20 1059 Room Air 2.0L 10/20 1057 Room Air 2.0L 10/20 1056 Room Air 2.0L Intake & Output 10/21 1600 10/21 0800 10/21 0000 Intake Total 300 Output Total 275 350 Balance -275 -50 Intake, Oral 300 Output, Stool 75 Output, Urine 200 350 Exam Other Physical Findings: gen awake and alert heent ncat cvs s1, s2 lungs rare rhonchi abd soft ext paresis Results Last 24 Hrs of Lab Results: Laboratory Tests 10/21/16 0636: CBC w Diff NO MAN DIFF REQ, RBC 3.21 L, MCV 80.9, MCH 26.3 L, RDW 16.1 H, MPV 6.4 L, Gran % 68.5, Lymphocytes % 16.2 L, Monocytes % 5.2, Eosinophils % 9.7 H, Basophils % 0.4, Absolute Granulocytes 7.7 H, Absolute Lymphocytes 1.8, Absolute Monocytes 0.6, Absolute Eosinophils 1.1, Absolute Basophils 0, PUBS MCHC 32.5 L Impression/Plan Impression/Plan Impression/Plan: Impression 56 year old man * Lung cancer * Osteomyelitis * hemoptysis * MRSA bacteremia * paresis Plan - consented for bronchoscpoy to be performed today in conjunction with Dr. Braun's plan for debridement - bronchoscopy to evaluate the tracheobronchial tree and if any obvious bleeding will plan for embolization DVT prophylaxis at all times
--- NOTE | 2016-10-21 09:33 | RADIOLOGY REPORT ---
EXAMINATION: XR PORTABLE CHEST CLINICAL INFORMATION: Hemoptysis COMPARISON: 10/19/2016 TECHNIQUE: Portable frontal view of the chest was obtained. FINDINGS: Right PICC tip lies in the region of the cavoatrial junction. Lung volumes are symmetric. There is linear atelectasis at the left lung base. A persistent region of retrocardiac opacity is seen, which may be slightly improved from prior. The right lung remains clear. No pneumothorax is seen. No evidence of pulmonary edema. The cardiomediastinal contour is unremarkable. Fusion hardware is noted in the thoracic spine. IMPRESSION: Persistent retrocardiac opacity, which may be slightly improved from prior.
--- NOTE | 2016-10-21 13:26 | NUR ---
PT OFF FLOOR AT THIS TIME FOR OR PROCEDURE.
--- NOTE | 2016-10-21 14:37 | Proc Note Internal Medicine ---
Medicine Procedure Procedure Date: 10/21/16 Medical Procedure(s): bronchoscopy Pre-Operative Diagnosis: hemoptysis Post-Operative Diagnosis: same Estimated Blood Loss: none Anesthesia: general endotracheal tube Procedure Findings: Time out obtained procedure as part of wound debridement pt intubated 8.0 ETT airway inspected left and right tracheobronchial tree without any endobronchial lesions, no mucus. At the right middle lobe takeoff some erythematous mucosa and evidence of some superficial blood that was washed and suctioned and sent for microbiology specimens. The bronchoscopy was completed and the debridement was pursued by Dr. Braun.
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
--- NOTE | 2016-10-21 15:36 | RADIOLOGY REPORT ---
EXAMINATION: XR PORTABLE CHEST CLINICAL INFORMATION: Status post bronchoscopy COMPARISON: Chest x-ray 10/21/2016 TECHNIQUE: Portable frontal view of the chest was obtained. 2:57 PM FINDINGS: No pneumothorax post bronchoscopy. There is persistent retrocardiac density at the left lung base. Right lung is clear. No pulmonary vascular congestion. No pleural effusion. Right-sided PICC line catheter in superior vena cava however the catheter catheter tip is obscured by the orthopedic hardware in the dorsal spine. IMPRESSION: No pneumothorax post bronchoscopy. Persistent retrocardiac density left lung base.
[2016-10-21 16:00] VITALS: BP 104/60
[2016-10-21 22:37] VITALS: BP 80/54
[2016-10-22 02:04] VITALS: BP 80/54
[2016-10-22 06:30] VITALS: BP 100/56
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
[2016-10-22 08:06] LABS: ABSOLUTE BASOPHIL COUNT 0.1 /CUMM (0.0-0.2); ABSOLUTE GRANULOCYTE CT 9.6 /CUMM (1.4-6.5); ABSOLUTE LYMPH COUNT 1.6 /CUMM (1.2-3.4); ABSOLUTE MONOCYTE COUNT 0.8 /CUMM (0.10-0.60); BASOPHIL % 0.5 % (0.0-2.0); EOSINOPHIL % 7.5 % (0-5); GRANULOCYTE % 73.3 % (42.2-75.2); MEAN CORPUSCULAR HGB 26.3 PG (27.0-31.0); MEAN CORPUSCULAR HGB CONC 32.6 G/DL (33.0-37.0); MEAN CORPUSCULAR VOLUME 80.8 FL (80.0-94.0); MEAN PLATELET VOLUME 6.4 FL (7.4-10.4); PLATELET COUNT 622 /CUMM (130-400); RBC DISTRIBUTION WIDTH 16.1 % (11.5-14.5); RED BLOOD CELL CT 3.09 /CUMM (4.70-6.10); WHITE BLOOD CELL COUNT 13.1 /CUMM (4.8-10.8)
--- NOTE | 2016-10-22 09:51 | PN- Pulmonary ---
Subjective HPI/Critical Care Issues: pt seen and examined doing well no hemoptysis overnight s/p bronchoscopy afebrile no new events no pain Objective Current Medications: Current Medications Sig/Nelson Start time Last Medication Dose Route Stop Time Status Admin Amitriptyline HCl 25 MG AT BEDTIME 10/11 0200 AC 10/21 PO 2208 Ascorbic Acid 1,000 MG DAILY 10/11 1000 AC 05 PO 0914 Aspirin Buffered 81 MG DAILY 10/11 1000 AC 10/22 PO 0914 Bacitracin 1 LAI Q4 10/11 0600 AC 10/22 TOP 0917 Cyclobenzaprine HCl 10 MG TID PRN 10/11 0200 AC 10/14 PO 2051 Diazepam 2 MG TID PRN 10/11 0200 AC 10/15 PO 1010 Enoxaparin Sodium 40 MG DAILY 10/11 1000 AC 10/22 SC 0915 Fentanyl Citrate 200 MCG .STK-MED ONE 10/21 1331 DC IM 10/21 1332 Gabapentin 300 MG BID 10/11 1000 AC 10/22 PO 0914 Guaifenesin 600 MG Q12 10/11 1000 AC 10/22 PO 0914 Hydromorphone HCl 1 MG ONCE ONE 10/22 0200 DC 05 IV 10/22 0201 0213 Hydromorphone HCl 2 MG .STK-MED ONE 10/21 1511 DC IM 10/21 1512 Hydromorphone HCl 2.5 MG Q4 HRS NEEDED PRN 10/14 1515 AC 10/22 IV 0913 Ibuprofen 200 MG Q6P PRN 10/11 0200 AC PO Meropenem 1 GM IQ8 10/20 0000 AC 10/22 IV 0913 Midazolam HCl 2 MG .STK-MED ONE 10/21 1332 DC IM 10/21 1333 Midodrine 5 MG 0800,1200,1600 10/11 0800 AC 10/22 PO 0914 Mirtazapine 30 MG AT BEDTIME 10/11 0200 AC 10/21 PO 2208 Morphine Sulfate 15 MG BID 10/19 1238 AC 10/22 PO 0915 Multivitamins 1 TAB DAILY 10/11 1000 AC 10/22 Therapeutic PO 0914 Patient Medication 1 ED ONE ONE 10/21 1415 DC Teaching ED 10/21 1416 Vancomycin HCl 1,500 MG DAILY 10/19 1000 AC 10/22 Sodium Chloride 250 ML IV 0915 Vitamin A 10,000 UNITS DAILY 10/11 1000 AC 10/22 PO 0915 Zolpidem Tartrate 5 MG AT BEDTIME 10/11 0200 AC 10/21 PO 2208 Vital Signs & I&O Last 24 Hrs of Vitals and I&O: Vital Signs Date Time Temp Pulse Resp B/P B/P Pulse O2 O2 Flow FiO2 Mean Ox Delivery Rate 10/22 0630 98.2 93 18 100/56 96 Room Air 10/22 0204 96 80/54 10/21 2237 98.3 91 20 80/54 95 Room Air 10/21 1600 Room Air 10/21 1600 97.8 102 16 104/60 97 Room Air Intake & Output 10/22 1600 10/22 0800 10/22 0000 Intake Total 530 1230 Output Total 525 750 Balance 5 480 Intake, IV 50 30 Intake, Oral 480 1200 Output, Stool 200 300 Output, Urine 325 450 Exam Other Physical Findings: gen awake and alert heent ncat cvs s1, s2 lungs rare rhonchi abd soft ext paresis Results Last 24 Hrs of Lab Results: Laboratory Tests 10/22/16 0521: Anion Gap 9, Estimated GFR > 60, BUN/Creatinine Ratio 40.0 H, CBC w Diff NO MAN DIFF REQ, RBC 3.09 L, MCV 80.8, MCH 26.3 L, RDW 16.1 H, MPV 6.4 L, Gran % 73.3, Lymphocytes % 12.3 L, Monocytes % 6.4, Eosinophils % 7.5 H, Basophils % 0.5, Absolute Granulocytes 9.6 H, Absolute Lymphocytes 1.6, Absolute Monocytes 0.8 H, Absolute Eosinophils 1.0, Absolute Basophils 0.1, PUBS MCHC 32.6 L Impression/Plan Impression/Plan Impression/Plan: Impression 56 year old man * Lung cancer * Osteomyelitis * stable hemoptysis * MRSA bacteremia * paresis Plan - s/p bronchoscopy - RML with some airway erythema, no bleeding noted, some blood suctioned and sent for microbiology from L - no further hemoptysis at this point - will monitor over the weekend - if no further episodes will sign off and he can f/u with [facility] [place] [facility] for follow up for lung cancer - please ensure we have records of the diagnosis and location of malignancy DVT prophylaxis at all times
--- NOTE | 2016-10-22 12:18 | PN- Infect Dx ---
Subjective Subjective: Afebrile. He notes minimal hemoptysis. He continues to complain of his usual abdominal muscle spasms. Objective Last 24 Hrs of Vital Signs/I&O Vital Signs Date Time Temp Pulse Resp B/P B/P Pulse O2 O2 Flow FiO2 Mean Ox Delivery Rate 10/22 1031 Room Air 2.0L 10/22 0630 98.2 93 18 100/56 96 Room Air 10/22 0204 96 80/54 10/21 2237 98.3 91 20 80/54 95 Room Air 10/21 1600 Room Air 10/21 1600 97.8 102 16 104/60 97 Room Air Intake & Output 10/22 1600 10/22 0800 10/22 0000 Intake Total 530 1230 Output Total 525 750 Balance 5 480 Intake, IV 50 30 Intake, Oral 480 1200 Output, Stool 200 300 Output, Urine 325 450 Physical Exam Other Physical Findings: He appears comfortable in no acute distress Lungs are clear Extremities PICC in the right upper extremity with no inflammation at the site Results Last 24 Hours of Lab Results: Laboratory Tests 10/22 0521 Chemistry Sodium (137 - 145 mmol/L) 139 Potassium (3.5 - 5.1 mmol/L) 4.6 Chloride (98 - 107 mmol/L) 100 Carbon Dioxide (22 - 30 mmol/L) 30 Anion Gap (5 - 16) 9 BUN (9 - 20 mg/dL) 24 H Creatinine (0.7 - 1.2 mg/dL) 0.6 L Estimated GFR (>60 ml/min) > 60 BUN/Creatinine Ratio (7 - 25 %) 40.0 H Hematology CBC w Diff NO MAN DIFF REQ WBC (4.8 - 10.8 /CUMM) 13.1 H RBC (4.70 - 6.10 /CUMM) 3.09 L Hgb (14.0 - 18.0 G/DL) 8.1 L Hct (42 - 52 %) 25.0 L MCV (80.0 - 94.0 FL) 80.8 MCH (27.0 - 31.0 PG) 26.3 L RDW (11.5 - 14.5 %) 16.1 H Plt Count (130 - 400 /CUMM) 622 H MPV (7.4 - 10.4 FL) 6.4 L Gran % (42.2 - 75.2 %) 73.3 Lymphocytes % (20.5 - 51.1 %) 12.3 L Monocytes % (1.7 - 9.3 %) 6.4 Eosinophils % (0 - 5 %) 7.5 H Basophils % (0.0 - 2.0 %) 0.5 Absolute Granulocytes (1.4 - 6.5 /CUMM) 9.6 H Absolute Lymphocytes (1.2 - 3.4 /CUMM) 1.6 Absolute Monocytes (0.10 - 0.60 /CUMM) 0.8 H Absolute Eosinophils (0.0 - 0.7 /CUMM) 1.0 Absolute Basophils (0.0 - 0.2 /CUMM) 0.1 PUBS MCHC (33.0 - 37.0 G/DL) 32.6 L Last 24 Hours of Gallito Results: OR culture left ischium October 21 negative Bronchial washings October 21 negative Recent Imaging Studies: Chest x-ray October 21 no pneumothorax; persistent retrocardiac density in the left lung base Assessment/Plan Impression: Stable status post debridement of the left ischium for possible osteomyelitis, with exposed bone reported, and bronchoscopy, with some erythematous mucosa and superficial blood, with no endobronchial lesions noted, yesterday. He remains afebrile with a mild persisting leukocytosis on Vancomycin and Meropenem now Day 9 of treatment for MRSA bacteremia, presumably secondary to pneumonia, with the CT scan of his chest revealing bilateral opacities and with his sputum culture positive for MRSA and Enterobacter. The bone culture is so far negative, but this could be secondary to the antibiotics he has been on, and will await the pathology to help determine the duration of antibiotics. If the pathology is negative then a MADHU may need to be considered to determine the optimal duration of therapy. The significance of the fluid collection at the perineum seen on the MRI is unclear and should be further evaluated. Suggestion: 1. Urology evaluation regarding the MRI findings in the perineum 2. Follow-up bone biopsy results (culture and pathology) 3. May need to consider MADHU based on above results 4. Vancomycin trough level with his next dose 5. Continue Vancomycin and Meropenem
[2016-10-22 15:38] VITALS: BP 88/52
[2016-10-22 22:37] VITALS: BP 90/60
--- NOTE | 2016-10-23 00:18 | NUR ---
ALERT AND ORIENTED X 3. DENIES CHEST PAIN. + PULSES PATIENT TURNED AND REPOSITIONED. URSS CARE GIVEN. OSTOMY CARE GIVEN. MEDICATION GIVEN FOR PAIN. DSGS C/D/I. PATIENT RESTING AT THIS TIME. 2300 S IRON WORKER NOTIFIED OF BP. NO NEW ORDERS AT THIS TIME. WILL CONTINUE TO MONITOR
[2016-10-23 08:00] VITALS: BP 90/50
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
[2016-10-23 08:38] LABS: ABSOLUTE BASOPHIL COUNT 0.1 /CUMM (0.0-0.2); ABSOLUTE EOSINOPHIL COUNT 1.1 /CUMM (0.0-0.7); ABSOLUTE GRANULOCYTE CT 6.1 /CUMM (1.4-6.5); ABSOLUTE LYMPH COUNT 1.8 /CUMM (1.2-3.4); ABSOLUTE MONOCYTE COUNT 0.6 /CUMM (0.10-0.60); HEMATOCRIT 26.2 % (42-52); MEAN CORPUSCULAR HGB 26.3 PG (27.0-31.0); MEAN CORPUSCULAR HGB CONC 32.6 G/DL (33.0-37.0); MEAN CORPUSCULAR VOLUME 80.8 FL (80.0-94.0); MEAN PLATELET VOLUME 6.4 FL (7.4-10.4); PLATELET COUNT 668 /CUMM (130-400); RBC DISTRIBUTION WIDTH 16.1 % (11.5-14.5); RED BLOOD CELL CT 3.23 /CUMM (4.70-6.10); WHITE BLOOD CELL COUNT 9.7 /CUMM (4.8-10.8)
[2016-10-23 09:19] LABS: BASOPHIL % 0.6 % (0.0-2.0); EOSINOPHIL % 11.1 % (0-5); GRANULOCYTE % 63.2 % (42.2-75.2)
--- NOTE | 2016-10-23 09:59 | PN- Infect Dx ---
Subjective Subjective: Afebrile without new complaints. He has had no further hemoptysis Objective Last 24 Hrs of Vital Signs/I&O Vital Signs Date Time Temp Pulse Resp B/P B/P Pulse O2 O2 Flow FiO2 Mean Ox Delivery Rate 10/23 0800 98.5 77 20 90/50 98 Room Air 10/22 2237 98.7 91 20 90/60 96 Room Air 10/22 1538 98.3 84 20 88/52 95 10/22 1031 Room Air 2.0L Intake & Output 10/23 1600 10/23 0800 10/23 0000 Intake Total 350 Output Total 100 300 Balance -100 50 Intake, Oral 350 Number 1 1 Bowel Movements Output, Stool 100 Output, Urine 300 Physical Exam Other Physical Findings: He appears comfortable in no acute distress Extremities PICC in the right upper extremity with no inflammation at the site The remainder of his exam is unchanged Results Last 24 Hours of Lab Results: Laboratory Tests 10/23 0615 Hematology CBC w Diff NO MAN DIFF REQ WBC (4.8 - 10.8 /CUMM) 9.7 RBC (4.70 - 6.10 /CUMM) 3.23 L Hgb (14.0 - 18.0 G/DL) 8.5 L Hct (42 - 52 %) 26.2 L MCV (80.0 - 94.0 FL) 80.8 MCH (27.0 - 31.0 PG) 26.3 L RDW (11.5 - 14.5 %) 16.1 H Plt Count (130 - 400 /CUMM) 668 H MPV (7.4 - 10.4 FL) 6.4 L Gran % (42.2 - 75.2 %) 63.2 Lymphocytes % (20.5 - 51.1 %) 18.5 L Monocytes % (1.7 - 9.3 %) 6.6 Eosinophils % (0 - 5 %) 11.1 H Basophils % (0.0 - 2.0 %) 0.6 Absolute Granulocytes (1.4 - 6.5 /CUMM) 6.1 Absolute Lymphocytes (1.2 - 3.4 /CUMM) 1.8 Absolute Monocytes (0.10 - 0.60 /CUMM) 0.6 Absolute Eosinophils (0.0 - 0.7 /CUMM) 1.1 Absolute Basophils (0.0 - 0.2 /CUMM) 0.1 PUBS MCHC (33.0 - 37.0 G/DL) 32.6 L Last 24 Hours of [place] Results: OR culture October 21 labeled left ischial bone remains negative Bronchial washing cultures October 21 so far negative Assessment/Plan Impression: Stable status post debridement of the left ischium for possible osteomyelitis, with exposed bone reported, and bronchoscopy, with some erythematous mucosa and superficial blood but with no endobronchial lesions noted, 2 days ago. He remains afebrile with white blood cell count now normal on Vancomycin and Meropenem now Day 10 of treatment for MRSA bacteremia, most likely secondary to pneumonia, with the CT scan of his chest revealing bilateral opacities and with his sputum culture positive for MRSA and Enterobacter. The bone culture remains negative, possibly secondary to the antibiotics he has been on, and will await the pathology to help determine the duration of antibiotics. If the pathology is negative then a MADHU may need to be considered to determine the optimal duration of therapy. The significance of the fluid collection at the perineum seen on the MRI is unclear and should be further evaluated. Suggestion: 1. Urology evaluation regarding the MRI findings in the perineum 2. Follow-up bone biopsy results (culture and pathology) 3. May need to consider MADHU based on above results 4. Follow-up Vancomycin trough level 5. Continue Vancomycin and Meropenem
[2016-10-23 14:30] VITALS: BP 100/70
[2016-10-23 22:38] VITALS: BP 92/60
[2016-10-24 07:36] VITALS: BP 98/70
[2016-10-24 07:57] LABS: ABSOLUTE BASOPHIL COUNT 0.1 /CUMM (0.0-0.2); ABSOLUTE EOSINOPHIL COUNT 1.2 /CUMM (0.0-0.7); ABSOLUTE GRANULOCYTE CT 7.4 /CUMM (1.4-6.5); ABSOLUTE LYMPH COUNT 1.7 /CUMM (1.2-3.4); ABSOLUTE MONOCYTE COUNT 0.7 /CUMM (0.10-0.60); BASOPHIL % 0.5 % (0.0-2.0); EOSINOPHIL % 10.5 % (0-5); GRANULOCYTE % 67.1 % (42.2-75.2); HEMATOCRIT 26.5 % (42-52); MEAN CORPUSCULAR HGB 26.2 PG (27.0-31.0); MEAN CORPUSCULAR HGB CONC 32.3 G/DL (33.0-37.0); MEAN CORPUSCULAR VOLUME 80.9 FL (80.0-94.0); MEAN PLATELET VOLUME 6.4 FL (7.4-10.4); PLATELET COUNT 691 /CUMM (130-400); RBC DISTRIBUTION WIDTH 16.4 % (11.5-14.5); RED BLOOD CELL CT 3.27 /CUMM (4.70-6.10)
[2016-10-24 14:07] VITALS: BP 99/62
--- NOTE | 2016-10-24 15:13 | PN- Att Addend ---
Attending Addendum Attending Brief Note S: The patient c/o usual chronic abdominal pain that responds to prn Dilaudid- requests a breakthrough dose this morning (planning intern informed). O: VS: Current Medications Sig/Nelson Start time Last Medication Dose Route Stop Time Status Admin Amitriptyline HCl 25 MG AT BEDTIME 10/11 0200 AC 10/24 PO 2106 Ascorbic Acid 1,000 MG DAILY 10/11 1000 AC 10/24 PO 0930 Aspirin Buffered 81 MG DAILY 10/11 1000 AC 10/24 PO 0930 Bacitracin 1 LAI Q4 10/11 0600 AC 10/24 TOP 1317 Cyclobenzaprine HCl 10 MG TID PRN 10/11 0200 AC 10/14 PO 205 Diazepam 2 MG TID PRN 10/11 0200 AC 10/23 PO 1222 Enoxaparin Sodium 40 MG DAILY 10/11 1000 AC 10/24 SC 0930 Gabapentin 300 MG BID 10/11 1000 AC 10/24 PO 2106 Guaifenesin 600 MG Q12 10/11 1000 AC 10/24 PO 210 Hydromorphone HCl 2 MG ONCE ONE 10/24 1300 DC 10/24 IV 10/24 1301 1317 Hydromorphone HCl 2.5 MG Q4 HRS NEEDED PRN 10/14 1515 AC 10/25 IV 0243 Ibuprofen 200 MG Q6P PRN 10/11 0200 AC PO Meropenem 1 GM IQ8 10/20 0000 AC 10/24 IV 2357 Midodrine 5 MG 0800,1200,1600 10/11 0800 AC 10/24 PO 1542 Mirtazapine 30 MG AT BEDTIME 10/11 0200 AC 10/24 PO 2106 Morphine Sulfate 15 MG BID 10/19 1238 AC 10/24 PO 210 Multivitamins 1 TAB DAILY 10/11 1000 AC 10/24 Therapeutic PO 0930 Vancomycin HCl 1,500 MG DAILY 10/19 1000 AC 10/24 Sodium Chloride 250 ML IV 1113 Vitamin A 10,000 UNITS DAILY 10/11 1000 AC 10/24 PO 09 Zolpidem Tartrate 5 MG AT BEDTIME 10/11 0200 AC 10/24 PO 2106 Vital Signs Date Time Temp Pulse Resp B/P B/P Pulse O2 O2 Flow FiO2 Mean Ox Delivery Rate 10/24 2317 100/60 10/241 99.0 91 20 94 Room Air 10/24 1407 98.7 88 20 99/62 97 10/24 0736 98.2 83 20 98/70 96 Room Air Intake & Output 10/25 0800 10/25 0000 10/24 1600 Intake Total 800 760 Output Total 675 1200 Balance 125 -440 Intake, IV 280 Intake, Oral 800 480 Output, Stool 300 100 Output, Urine 375 1100 Physical Exam; HEENT: susanna- moist mucosa w/o lesions Neck: no JVD/Bruits Chest: diminished breath sounds at bases, otherwise clear Cor: RRR, nl S1, S2 w/o murm Abd: BS+, soft, + mild diffuse tenderness (particularly epigastric) similar to my prior exams of this patient in past, no rebound Ext: no edema Lab/Tests: Laboratory Tests 10/24/16 0948: Vancomycin Trough 14.0 10/24/16 0645: Anion Gap 6, Estimated GFR > 60, BUN/Creatinine Ratio 35.0 H, CBC w Diff NO MAN DIFF REQ, RBC 3.27 L, MCV 80.9, MCH 26.2 L, RDW 16.4 H, MPV 6.4 L, Gran % 67.1, Lymphocytes % 15.7 L, Monocytes % 6.2, Eosinophils % 10.5 H, Basophils % 0.5, Absolute Granulocytes 7.4 H, Absolute Lymphocytes 1.7, Absolute Monocytes 0.7 H, Absolute Eosinophils 1.2, Absolute Basophils 0.1, PUBS MCHC 32.3 L 10/23/16 1000: Vancomycin Trough Cancelled 10/23/16 0615: CBC w Diff NO MAN DIFF REQ, RBC 3.23 L, MCV 80.8, MCH 26.3 L, RDW 16.1 H, MPV 6.4 L, Gran % 63.2, Lymphocytes % 18.5 L, Monocytes % 6.6, Eosinophils % 11.1 H, Basophils % 0.6, Absolute Granulocytes 6.1, Absolute Lymphocytes 1.8, Absolute Monocytes 0.6, Absolute Eosinophils 1.1, Absolute Basophils 0.1, PUBS MCHC 32.6 L Impression/Plan: #MRSA Pneumonia/Bacteremia- has been afebrile on antibiotics. Plan: Continue Vanco/Meopenem as per ID. #Chronic Bacteiuria- with suprapubic catheter. C/W colonization. Plan: Will observe. #Chronic Decubitus Ulcer- MRI showing possible left iliac osteomyelitis. Plan: As per ID/Wound care, Clinitron bed. #Hemoptysis- h/o XRT for lung ca. Plan: Will follow.
[2016-10-24 23:17] VITALS: BP 100/60
[2016-10-25 06:48] VITALS: BP 94/56
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
[2016-10-25 08:42] LABS: ABSOLUTE BASOPHIL COUNT 0 /CUMM (0.0-0.2); ABSOLUTE EOSINOPHIL COUNT 0.9 /CUMM (0.0-0.7); ABSOLUTE GRANULOCYTE CT 5.5 /CUMM (1.4-6.5); ABSOLUTE LYMPH COUNT 1.5 /CUMM (1.2-3.4); ABSOLUTE MONOCYTE COUNT 0.6 /CUMM (0.10-0.60); BASOPHIL % 0.5 % (0.0-2.0); EOSINOPHIL % 10.8 % (0-5); GRANULOCYTE % 64.1 % (42.2-75.2); HEMATOCRIT 25.5 % (42-52); MEAN CORPUSCULAR HGB 26.4 PG (27.0-31.0); MEAN CORPUSCULAR HGB CONC 32.4 G/DL (33.0-37.0); MEAN CORPUSCULAR VOLUME 81.3 FL (80.0-94.0); MEAN PLATELET VOLUME 6.9 FL (7.4-10.4); PLATELET COUNT 646 /CUMM (130-400); RBC DISTRIBUTION WIDTH 15.6 % (11.5-14.5); RED BLOOD CELL CT 3.13 /CUMM (4.70-6.10); WHITE BLOOD CELL COUNT 8.6 /CUMM (4.8-10.8)
--- NOTE | 2016-10-25 09:32 | PN- Pulmonary ---
Subjective HPI/Critical Care Issues: pt seen and examined significantly improved bloody streaked sputum no overt hemoptysis Objective Current Medications: Current Medications Sig/Nelson Start time Last Medication Dose Route Stop Time Status Admin Amitriptyline HCl 25 MG AT BEDTIME 10/11 0200 AC 10/24 PO 2107 Ascorbic Acid 1,000 MG DAILY 10/11 1000 AC 10/25 PO 0748 Aspirin Buffered 81 MG DAILY 10/11 1000 AC 10/25 PO 0749 Bacitracin 1 LAI Q4 10/11 0600 AC 10/25 TOP 0705 Cyclobenzaprine HCl 10 MG TID PRN 10/11 0200 AC 10/14 PO 2051 Diazepam 2 MG TID PRN 10/11 0200 AC 10/23 PO 1222 Enoxaparin Sodium 40 MG DAILY 10/11 1000 AC 10/25 SC 0749 Gabapentin 300 MG BID 10/11 1000 AC 10/25 PO 0749 Guaifenesin 600 MG Q12 10/11 1000 AC 10/25 PO 0749 Hydromorphone HCl 2 MG ONCE ONE 10/24 1300 DC 10/24 IV 10/24 1301 1317 Hydromorphone HCl 2.5 MG Q4 HRS NEEDED PRN 10/14 1515 AC 10/25 IV 0644 Ibuprofen 200 MG Q6P PRN 10/11 0200 AC PO Meropenem 1 GM IQ8 10/20 0000 AC 10/25 IV 0748 Midodrine 5 MG 0800,1200,1600 10/11 0800 AC 10/25 PO 0749 Mirtazapine 30 MG AT BEDTIME 10/11 0200 AC 10/24 PO 2107 Morphine Sulfate 15 MG BID 10/19 1238 AC 10/25 PO 0914 Multivitamins 1 TAB DAILY 10/11 1000 AC 10/25 Therapeutic PO 0749 Vancomycin HCl 1,500 MG DAILY 10/19 1000 AC 10/24 Sodium Chloride 250 ML IV 1113 Vitamin A 10,000 UNITS DAILY 10/11 1000 AC 10/25 PO 0749 Zolpidem Tartrate 5 MG AT BEDTIME 10/11 0200 AC 10/24 PO 2107 Vital Signs & I&O Last 24 Hrs of Vitals and I&O: Vital Signs Date Time Temp Pulse Resp B/P B/P Pulse O2 O2 Flow FiO2 Mean Ox Delivery Rate 10/25 0548 98.0 88 20 94/56 95 Room Air 05/14 2317 100/60 10/24 2221 99.0 91 20 94 Room Air 10/24 1407 98.7 88 20 99/62 97 Intake & Output 10/25 1600 10/25 0800 10/25 0000 Intake Total 800 Output Total 800 675 Balance -800 125 Intake, Oral 800 Output, Stool 150 300 Output, Urine 650 375 Exam Other Physical Findings: gen awake and alert heent ncat cvs s1, s2 lungs rare rhonchi abd soft ext paresis Results Last 24 Hrs of Lab Results: Laboratory Tests 10/25/16 0625: CBC w Diff NO MAN DIFF REQ, RBC 3.13 L, MCV 81.3, MCH 26.4 L, RDW 15.6 H, MPV 6.9 L, Gran % 64.1, Lymphocytes % 17.9 L, Monocytes % 6.7, Eosinophils % 10.8 H, Basophils % 0.5, Absolute Granulocytes 5.5, Absolute Lymphocytes 1.5, Absolute Monocytes 0.6, Absolute Eosinophils 0.9, Absolute Basophils 0, PUBS MCHC 32.4 L 10/24/16 0948: Vancomycin Trough 14.0 Impression/Plan Impression/Plan Impression/Plan: Impression 56 year old man * Lung cancer * Osteomyelitis * stable hemoptysis * MRSA bacteremia * paresis Plan - no further overt hemoptysis at this point - if no further episodes will sign off and he can f/u with [facility] for follow up for lung cancer - please ensure we have records of the diagnosis and location of malignancy - call if any questions DVT prophylaxis at all times
--- NOTE | 2016-10-25 13:04 | PN- Infect Dx ---
Subjective Subjective: Afebrile. He reported some hemoptysis earlier today. Objective Last 24 Hrs of Vital Signs/I&O Vital Signs Date Time Temp Pulse Resp B/P B/P Pulse O2 O2 Flow FiO2 Mean Ox Delivery Rate 10/25 0648 98.0 88 20 94/56 95 Room Air 10/24 2317 100/60 10/24 2221 99.0 91 20 94 Room Air 10/24 1407 98.7 88 20 99/62 97 Intake & Output 10/25 1600 10/25 0800 10/25 0000 Intake Total 800 Output Total 800 675 Balance -800 125 Intake, Oral 800 Output, Stool 150 300 Output, Urine 650 375 Physical Exam Other Physical Findings: He appears comfortable in no acute distress Lungs are clear Heart regular rhythm with no murmur Extremities PICC in the right upper extremity with no inflammation at the site Results Last 24 Hours of Lab Results: Laboratory Tests 10/25 0625 Hematology CBC w Diff NO MAN DIFF REQ WBC (4.8 - 10.8 /CUMM) 8.6 RBC (4.70 - 6.10 /CUMM) 3.13 L Hgb (14.0 - 18.0 G/DL) 8.3 L Hct (42 - 52 %) 25.5 L MCV (80.0 - 94.0 FL) 81.3 MCH (27.0 - 31.0 PG) 26.4 L RDW (11.5 - 14.5 %) 15.6 H Plt Count (130 - 400 /CUMM) 646 H MPV (7.4 - 10.4 FL) 6.9 L Gran % (42.2 - 75.2 %) 64.1 Lymphocytes % (20.5 - 51.1 %) 17.9 L Monocytes % (1.7 - 9.3 %) 6.7 Eosinophils % (0 - 5 %) 10.8 H Basophils % (0.0 - 2.0 %) 0.5 Absolute Granulocytes (1.4 - 6.5 /CUMM) 5.5 Absolute Lymphocytes (1.2 - 3.4 /CUMM) 1.5 Absolute Monocytes (0.10 - 0.60 /CUMM) 0.6 Absolute Eosinophils (0.0 - 0.7 /CUMM) 0.9 Absolute Basophils (0.0 - 0.2 /CUMM) 0 PUBS MCHC (33.0 - 37.0 G/DL) 32.4 L Last 24 Hours of [place] Results: OR culture October 21 labeled left ischium negative Bronchial washings culture October 21 negative Assessment/Plan Impression: Stable status post bone biopsy and debridement of the left ischium for possible osteomyelitis, based on the MRI and his clinical exam, with exposed bone reported, 4 days ago. He remains afebrile with white blood cell count normal on Vancomycin (with a therapeutic trough level) and Meropenem now Day 12 of treatment for MRSA bacteremia, most likely secondary to pneumonia, with the CT scan of his chest revealing bilateral opacities and with his sputum culture positive for MRSA and Enterobacter. The bone culture is negative, possibly secondary to the antibiotics he was on, and will await the pathology to help determine the duration of antibiotics. If the pathology is negative then a MADHU may need to be considered to determine the optimal duration of therapy. The significance of the fluid collection at the perineum seen on the MRI is unclear and he is being evaluated by Urology, with possible cystoscopy planned. Suggestion: 1. Await Urology evaluation 2. Await bone biopsy results 3. May need to consider MADHU based on above results 4. Continue Vancomycin and Meropenem
[2016-10-25 14:36] VITALS: BP 100/70
[2016-10-25 22:35] VITALS: BP 102/60
[2016-10-26 06:34] VITALS: BP 98/56
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
[2016-10-26 14:25] VITALS: BP 100/50
--- NOTE | 2016-10-26 20:20 | NUR ---
MACHINE CHAIN MAKER PEÑA REQUESTED TO [facility] FOR THIS PT.
[2016-10-26 22:52] VITALS: BP 98/58
[2016-10-27 07:05] VITALS: BP 100/60
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
[2016-10-27] MEDS ORDERED: BACITRACIN ZIN120 GM TOP (09:59)
[2016-10-27] MEDS ORDERED: CHLORASEPTIC S1 EACH PO (09:59)
--- NOTE | 2016-10-27 12:59 | PN- Infect Dx ---
Subjective Subjective: Afebrile. He reports increased cough, with some hemoptysis, and increased shortness of breath with chest discomfort. Objective Last 24 Hrs of Vital Signs/I&O Vital Signs Date Time Temp Pulse Resp B/P B/P Pulse O2 O2 Flow FiO2 Mean Ox Delivery Rate 10/27 0705 96.8 82 20 100/60 95 Room Air 10/26 2252 98.4 82 20 98/58 96 Room Air 10/26 1425 97.0 77 19 100/50 96 Intake & Output 10/27 1600 10/27 0800 10/27 0000 Intake Total 230 120 Output Total 450 625 Balance -220 -505 Intake, IV 130 20 Intake, Oral 100 100 Output, Urine 450 625 Physical Exam Other Physical Findings: He appears more uncomfortable, with nasal oxygen in place Lungs decreased breath sounds bilaterally Heart regular rhythm with no murmur Abdomen suprapubic catheter in place Extremities contracted, with no cyanosis, clubbing or edema Results Last 24 Hours of Lab Results: Bone biopsy left femur negative Bone biopsy left ischium reveals focal features compatible with chronic osteomyelitis Last 24 Hours of [place] Results: No recent cultures Assessment/Plan Impression: Recurrent hemoptysis and dyspnea without any evidence for hypoxia status post bronchoscopy 6 days ago, with some erythematous mucosa and superficial blood but with no endobronchial lesions noted. He is otherwise stable status post bone biopsy and debridement of the left ischium 6 days ago, with the pathology revealing features compatible with chronic osteomyelitis, and he will require a more prolonged course (4-6 weeks) of IVF antibiotics. He remains afebrile with white blood cell count normal on Vancomycin and Meropenem now Day 14 of treatment for MRSA bacteremia, either secondary to pneumonia, with the CT scan of his chest revealing bilateral opacities and with his sputum culture positive for MRSA and Enterobacter, or to the osteomyelitis. The significance of the fluid collection at the perineum seen on the MRI is unclear and, as it has been 2 weeks since his MRI, it may be reasonable to reimage him, for example with CT scan, prior to considering any surgery. Suggestion: 1. Would obtain a CT of the pelvis with IV contrast 2. Urology follow-up based on above 3. Would repeat ESR 4. Continue Vancomycin and Meropenem
[2016-10-27 14:50] VITALS: BP 100/70
--- NOTE | 2016-10-27 15:48 | CT SCAN REPORT ---
EXAMINATION: CT PELVIS WITH IV CONTRAST CLINICAL INFORMATION: Evaluate for abscess in the perineum. COMPARISON: Pelvic MRI from 10/13/2016. TECHNIQUE: Helical scanning was performed with submillimeter collimation through the pelvis with 94 mL of Optiray 320 intravenous contrast. Sagittal and coronal multiplanar 2-D reconstructions were obtained. DLP: 203 mGy-cm FINDINGS: PELVIS: Patient positioning makes evaluation of the perineum more difficult. There are bilateral chronic decubitus ulcers overlying the ischial tuberosities. There is no associated fluid collection in these areas. There is mild linear high attenuation in the region of the perineum likely associated with calcifications of the corpus cavernosum of the penis. There is no definite adjacent fluid collection identified. Small amount of fluid seen within the scrotum. The patient has a suprapubic bladder catheter in place. There is a right lower quadrant ostomy. No bowel obstruction. No lymphadenopathy. OSSEOUS STRUCTURES: Chronic appearing rotation at the right hip. No dislocation. Severe degenerative changes at the right hip with moderate degenerative changes of the left hip. The bones are osteopenic. Partial fusion at the sacroiliac joints. IMPRESSION: No perineal fluid collection. Chronic appearance of bilateral decubitus ulcers over the ischial tuberosities without acute fluid or inflammation. Severe degenerative changes of the right hip.
--- NOTE | 2016-10-27 20:39 | NUR ---
PT FRUSTRATED HE HAS NOT MOVED ON TO THE NEXT LEVEL OF CARE. REQUESTED MD TO COME SPEAK TO HIM. NOTIFIED INDER SARAVIA MD. MD AT BEDSIDE NOW SPEAKING TO PT.
[2016-10-27 22:38] VITALS: BP 104/60
[2016-10-28 07:08] VITALS: BP 102/60
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
[2016-10-28 08:05] LABS: ABSOLUTE BASOPHIL COUNT 0.1 /CUMM (0.0-0.2); ABSOLUTE EOSINOPHIL COUNT 0.9 /CUMM (0.0-0.7); ABSOLUTE GRANULOCYTE CT 8.4 /CUMM (1.4-6.5); ABSOLUTE LYMPH COUNT 1.7 /CUMM (1.2-3.4); ABSOLUTE MONOCYTE COUNT 0.6 /CUMM (0.10-0.60); BASOPHIL % 0.5 % (0.0-2.0); EOSINOPHIL % 7.5 % (0-5); GRANULOCYTE % 72.2 % (42.2-75.2); HEMATOCRIT 27.1 % (42-52); MEAN CORPUSCULAR HGB 25.9 PG (27.0-31.0); MEAN CORPUSCULAR HGB CONC 32.3 G/DL (33.0-37.0); MEAN CORPUSCULAR VOLUME 80.2 FL (80.0-94.0); MEAN PLATELET VOLUME 7.3 FL (7.4-10.4); PLATELET COUNT 620 /CUMM (130-400); RBC DISTRIBUTION WIDTH 15.7 % (11.5-14.5); RED BLOOD CELL CT 3.38 /CUMM (4.70-6.10); WHITE BLOOD CELL COUNT 11.6 /CUMM (4.8-10.8)
[2016-10-28 08:13] LABS: PT 12.4 SEC (9.4-12.5)
[2016-10-28 09:09] VITALS: BP 102/60
[2016-10-28] MEDS ORDERED: DILAUDID4 M1 PO ×2 (09:23→10:37)
[2016-10-28] MEDS ORDERED: MS CONTIN100 MG PO (09:31)
[2016-10-28] MEDS ORDERED: MS CONTIN30 M1 PO (10:37)
--- NOTE | 2016-10-28 12:14 | NUR ---
PT REQUESTING MORE PAIN MEDICATIONS AT THIS TIME. PT MEDICATED AT 0945 WITH 2.5MG IV DILAUDID. PT STATING HE IS ANXIOUS AND HIS ABD HURTS. RESIDENT HEATHER MADE AWARE. 1MG IV DILAUDID ORDER PLACED AND ACKNOWLEDGED. WILL CONTINUE TO MONITOR.
[2016-10-28] MEDS ORDERED: VANCOMYCIN1.5 GM/252 IV (12:57)
[2016-10-28] MEDS ORDERED: MEROPENEM1 G1 IV (12:57)
[2016-10-28 13:54] VITALS: BP 102/60
== END 2016-10-28 15:20 | DRG 981 ==
LOC: ERH 19:58 → 2NA 23:22 → ERHI 23:22 → ENRESERV 10-11 00:05 → 2NA 10-11 01:59 → ENPENDDIS 10-28 13:32 → 2NA 10-28 15:20
PROVIDERS: Internal Medicine; Internal Medicine Cardiovascular Disease; Pediatrics; Radiology Diagnostic Radiology; Student in an Organized Health Care Education/Training Program; ADMIT Internal Medicine
PROC: B518ZZA Fluoroscopy of Superior Vena Cava, Guidance (ICD-10-PCS; 2016-10-15)
PROC: 02HV33Z Insertion of Infusion Device into Superior Vena Cava, Percutaneous Approach (ICD-10-PCS; 2016-10-15)
PROC: 30233N1 Transfusion of Nonautologous Red Blood Cells into Peripheral Vein, Percutaneous Approach (ICD-10-PCS; 2016-10-16)
PROC: 0QB30ZZ Excision of Left Pelvic Bone, Open Approach (ICD-10-PCS; principal; 2016-10-21)
PROC: 0BJ08ZZ Inspection of Tracheobronchial Tree, Via Natural or Artificial Opening Endoscopic (ICD-10-PCS; 2016-10-21)
DX: J15.212 Pneumonia due to Methicillin resistant Staphylococcus aureus (principal); L89.224 Pressure ulcer of left hip, stage 4; L89.154 Pressure ulcer of sacral region, stage 4; M86.652 Other chronic osteomyelitis, left thigh; L89.223 Pressure ulcer of left hip, stage 3; L89.213 Pressure ulcer of right hip, stage 3; D69.6 Thrombocytopenia, unspecified; G82.20 Paraplegia, unspecified; I10 Essential (primary) hypertension; R04.2 Hemoptysis; C34.90 Malignant neoplasm of unspecified part of unspecified bronchus or lung; G90.4 Autonomic dysreflexia; N31.2 Flaccid neuropathic bladder, not elsewhere classified; Z93.50 Unspecified cystostomy status; D72.829 Elevated white blood cell count, unspecified; B95.62 Methicillin resistant Staphylococcus aureus infection as the cause of diseases classified elsewhere; Z93.3 Colostomy status; K21.9 Gastro-esophageal reflux disease without esophagitis; J04.0 Acute laryngitis
CPT/HCPCS: 2NAP; 75633; 87070; 87075; 87184; 87205; ERO; 36415; 74000; 77001; 81001; 82436; 86920; 87040; 87045; 87071; 87086; 87147; 88307; 93306; 96372; C1769; J0131; J0456; J0696; J1170; J1642; J1650; J2185; J2270; J2543; J2997; J3370; J7040; P9016

== ENCOUNTER 2016-11-13 15:27 | Emergency (ER) | payer OTHER, MEDICARE ==
[~2016-11-13] VITALS: Ht 175.3 cm; Wt 57.6 kg
[~2016-11-13 15:27] MED LIST changes: +BACITRACIN ZIN120 GM TOP; +CHLORASEPTIC S1 EACH PO; +DILAUDID4 M1 PO; +MS CONTIN100 MG PO; +VANCOMYCIN1.5 GM/252 IV
--- NOTE | 2016-11-13 16:03 | ED GI/GU/ABDOMINAL COMPLAINT ---
History of Present Illness General Chief Complaint: Abdominal Pain/Flank Pain Stated Complaint: "SEVERE STOMACH PAIN/SPASM" Source: patient Exam Limitations: no limitations Vital Signs & Intake/Output Vital Signs & Intake/Output Vital Signs Date Time Temp Pulse Resp B/P B/P Pulse O2 O2 Flow FiO2 Mean Ox Delivery Rate 11/13 1734 98.3 89 15 124/74 100 Room Air 11/13 1602 99 Room Air 11/13 1534 97.9 117 15 97 Room Air Room Air ED Intake and Output 11/14 0000 11/13 1200 Intake Total 0 Output Total Balance 0 Intake, Oral 0 Patient 127 lb Weight Weight Reported by Patient Measurement Method Allergies Coded Allergies: No Known Allergies (11/13/16) Reconcile Medications Amitriptyline HCl 25 MG TABLET 1 TAB PO QHS SLEEP (Reported) Ascorbic Acid (Vitamin C) 1,000 MG TABLET 1 TAB PO DAILY SUPPLEMENT (Reported ) Aspirin (Ecotrin*) 81 MG TABLET.DR 1 TAB PO DAILY HEART HEALTH (Reported) Cyclobenzaprine HCl 10 MG TABLET 1 TAB PO TID PRN SPASMS (Reported) Diazepam (Valium) 2 MG TABLET 1 TAB PO TID PRN MUSCLE SPASMS/ANXIETY ( Reported) Gabapentin (Unknown Strength) CAPSULE 300 MG PO BID PAIN (Reported) Midodrine HCl 5 MG TABLET 3 TAB PO TID HYPOTENSION (Reported) Mirtazapine (Remeron) 30 MG TABLET 1 TAB PO QHS SLEEP (Reported) Multiple Vitamin (Multivitamins) 1 EACH TABLET 1 TAB PO DAILY SUPPLEMENT ( Reported) Vitamin A Palmitate (Vitamin A) 10,000 UNIT CAPSULE 1 CAP PO DAILY SUPPLEMENT (Reported) Zolpidem Tartrate (Ambien) 5 MG TABLET 1 TAB PO QHS SLEEP (Reported) Triage Note: PT TO ED FOR C/C OF STOMACH PAIN THAT STARTED YESTERDAY. -NAUSEA, DENIES DIFFICULTY WITH COLOSTOMY. RECENTLY ON IV ANTIBIOTICS FOR OSTEOMYELYTIS OF COCCYX AREA. +CHILLS AT HOME. AFEBRILE IN TRIAGE. PT ALSO REQUESTING PICC LINE TO BE TAKEN OUT. Triage Nurses Notes Reviewed? yes HPI: 56-year-old male arrives through triage to room 4 in a motorized wheelchair complaining of chronic abdominal pain requesting an IV injection of Tylenol added. He reports that he has chronic urinary tract infections and chronic abdominal pain and reports that no one can figure out what is going on with him. He has had numerous workups including GI. He reports he was just discharged from short-term rehabilitation 2 weeks ago and continues with pain. He was on IV vancomycin for osteomyelitis. He reports his urine is chronically infected. He has morphine at home but is requesting IV Dilaudid with no further testing. Pain in abdomen is intermittent waves 10 out of 10. (DEBBY CORBIN APRN) Past History Travel History Traveled to [place] past 21 day No Medical History Any Pertinent Medical History? see below for history Neurological: PARAPLEGIC autonomic dysreflexia EENT: NONE Cardiovascular: hypertension, myocardial infarction Respiratory: ASPIRATION PNEUMONIA Gastrointestinal: GERD, COLOSTOMY PEPTIC ULCER DISEASE Hepatic: NONE Renal: nephrolithiasis (bladder), neurogenic bladder, SUPRAPUBIC CYSTOSTOMY ZURI UTI's Musculoskeletal: chronic back pain, DECUBITIS R HIP & COCCYX TIB/FIB FX CHRONIC NECK PAIN STAGE 4 PRES ULCER COCCYX OSTEOMYELITIS (BILATERAL ISCHIA) Psychiatric: NONE Endocrine: NONE Blood Disorders: anemia Cancer(s): lung cancer (non-small cell) INTAKE RN/Reproductive: NONE Other Medical Hx: PARAPLEGIA History of MRSA: Yes History of VRE: Yes History of CDIFF: No Influenza Vaccine: 03/13/16 Surgical History Surgical History: spinal fusion, status post colostomy status post skin grafts to the ischial decubiti Psychosocial History Who do you live with Paid Attentent Services at Home Home Health Aide, Nursing, Physical Therapy, Social Work What is your primary language Icelandic Tobacco Use: Never used ETOH Use: denies use Illicit Drug Use: denies illicit drug use Family History Family History, If Any: FATHER FH: coronary artery disease FH: diabetes mellitus FH: hypertension Hx Contributory? No (DEBBY CORBIN APRN) Review of Systems Review of Systems Constitutional: Reports: no symptoms. EENTM: Reports: no symptoms. Respiratory: Reports: no symptoms. Cardiovascular: Reports: no symptoms. GI: Reports: abdominal pain. Genitourinary: Reports: no symptoms. Musculoskeletal: Reports: no symptoms. Skin: Reports: no symptoms. Neurological/Psychological: Reports: no symptoms. Hematologic/Endocrine: Reports: no symptoms. Immunologic/Allergic: Reports: no symptoms. All Other Systems: Reviewed and Negative (DEBBY CORBIN APRN) Physical Exam Physical Exam General Appearance: well developed/nourished, alert, awake, anxious, mild distress, ILL APPEARING Neck: normal inspection, supple, full range of motion Respiratory: normal breath sounds, chest non-tender, no respiratory distress Cardiovascular: regular rate/rhythm Gastrointestinal: normal bowel sounds, soft, tenderness (BILATERAL LOWER ABD) Neurologic/Psych: awake, alert, oriented x 3, abnormal gait (IN WHEEL CHAIR) Core Measures ACS in differential dx? No Severe Sepsis Present: No Septic Shock Present: No (DEBBY CORBIN APRN) Progress Differential Diagnosis: UTI/pyelo, CHRONIC ABD PAIN Plan of Care: Orders Procedure Date/time Status CULTURE,URINE 11/13 160 Active URINALYSIS 11/13 160 Complete COMPREHENSIVE METABOLIC PANEL 11/13 160 Complete CBC WITHOUT DIFFERENTIAL 11/13 160 Complete Laboratory Tests 11/13/16 1623: Anion Gap 9, Estimated GFR > 60, BUN/Creatinine Ratio 50.0 H, Glucose 96, Calcium 9.1, Total Bilirubin 0.4, AST 17, ALT 29, Alkaline Phosphatase 120, Total Protein 6.7, Albumin 3.4 L, Globulin 3.3, Albumin/Globulin Ratio 1.0 L, CBC w Diff NO MAN DIFF REQ, RBC 3.97 L, MCV 79.8 L, MCH 25.7 L, RDW 15.4 H, MPV 6.5 L, Gran % 81.9 H, Lymphocytes % 10.2 L, Monocytes % 4.0, Eosinophils % 3.5, Basophils % 0.4, Absolute Granulocytes 11.2 H, Absolute Lymphocytes 1.4, Absolute Monocytes 0.5, Absolute Eosinophils 0.5, Absolute Basophils 0, PUBS MCHC 32.2 L 11/13/16 1622: Urine Color YEL, Urine Clarity HAZY H, Urine pH 6.0, Ur Specific [place] 1.025, Urine Protein 100 H, Urine Ketones NEG, Urine Nitrite NEG, Urine Bilirubin NEG, Urine Urobilinogen 0.2, Ur Leukocyte Esterase MOD H, Ur Microscopic SEDIMENT EXAMINED, Urine RBC 1-3, Urine WBC 50-75 H, Ur Epithelial Cells RARE, Urine Bacteria MOD H, Micro UA Comment [place] YEAST H, Urine Hemoglobin TRACE- INTACT H, Urine Glucose NEG Microbiology 11/13 162 URINE ROUT: Urine Culture - RECD Initial ED EKG: none Comments: CASE DISCUSSED WITH DR WILCOX. IV Dilaudid given and abdominal pain better. He will be discharged home with his own prescription of morphine he has. He will follow up with his primary care provider this week. Lab work benign urine shows UTI. He does not want any antibiotics at this time because he will follow-up with his own urologist. (DEBBY CORBIN APRN) Departure Departure Time of Disposition: 1710 Disposition: HOME OR SELF CARE Condition: Stable Clinical Impression Primary Impression: Chronic abdominal pain Secondary Impressions: Chronic UTI Referrals: TATYANA MACE MD (PCP/Family) Additional Instructions: These follow-up with her primary care provider this week. Take morphine has directed has already prescribed from home. Departure Forms: Customer Survey General Discharge Information (DEBBY CORBIN APRN) PA/EXTERNAL GRINDER TOOL Co-Sign Statement Statement: ED Attending supervision documentation- I saw and evaluated the patient. I have also reviewed all the pertinent lab results and diagnostic results. I agree with the findings and the plan of care as documented in the PA's/EXTERNAL GRINDER TOOL's documentation. x I have reviewed the ED Record and agree with the PA's/EXTERNAL GRINDER TOOL's documentation. [] Additions or exceptions (if any) to the PAs/EXTERNAL GRINDER TOOL's note and plan are summarized below: [] (JERI RAMOS,MORENA)
[2016-11-13 16:30] LABS: ABSOLUTE BASOPHIL COUNT 0 /CUMM (0.0-0.2); ABSOLUTE EOSINOPHIL COUNT 0.5 /CUMM (0.0-0.7); ABSOLUTE GRANULOCYTE CT 11.2 /CUMM (1.4-6.5); ABSOLUTE LYMPH COUNT 1.4 /CUMM (1.2-3.4); ABSOLUTE MONOCYTE COUNT 0.5 /CUMM (0.10-0.60); BASOPHIL % 0.4 % (0.0-2.0); EOSINOPHIL % 3.5 % (0-5); GRANULOCYTE % 81.9 % (42.2-75.2); HEMATOCRIT 31.7 % (42-52); MEAN CORPUSCULAR HGB 25.7 PG (27.0-31.0); MEAN CORPUSCULAR HGB CONC 32.2 G/DL (33.0-37.0); MEAN CORPUSCULAR VOLUME 79.8 FL (80.0-94.0); MEAN PLATELET VOLUME 6.5 FL (7.4-10.4); PLATELET COUNT 611 /CUMM (130-400); RBC DISTRIBUTION WIDTH 15.4 % (11.5-14.5); RED BLOOD CELL CT 3.97 /CUMM (4.70-6.10); WHITE BLOOD CELL COUNT 13.7 /CUMM (4.8-10.8)
[2016-11-13 17:34] VITALS: BP 124/74
== END 2016-11-13 17:35 ==
LOC: ERH 15:27
PROVIDERS: Nurse Practitioner Family
DX: N39.0 Urinary tract infection, site not specified (principal)
CPT/HCPCS: 81001; 87086; 96374

== ENCOUNTER 2016-12-07 10:50 | Emergency (ER) | payer OTHER, MEDICARE ==
[2016-12-07 10:53] VITALS: BP 110/65
--- NOTE | 2016-12-07 10:59 | ED GENERAL ADULT ---
History of Present Illness General Chief Complaint: Male Genitourinary Problems Stated Complaint: UTI Source: patient, old records Exam Limitations: no limitations Vital Signs & Intake/Output Vital Signs & Intake/Output Vital Signs Date Time Temp Pulse Resp B/P B/P Pulse O2 O2 Flow FiO2 Mean Ox Delivery Rate 12/07 1106 99 Room Air 12/07 1053 97.6 64 18 110/65 100 Room Air Allergies Coded Allergies: No Known Allergies (11/13/16) Reconcile Medications Amitriptyline HCl 25 MG TABLET 1 TAB PO QHS SLEEP (Reported) Ascorbic Acid (Vitamin C) 1,000 MG TABLET 1 TAB PO DAILY SUPPLEMENT (Reported ) Aspirin (Ecotrin*) 81 MG TABLET.DR 1 TAB PO DAILY HEART HEALTH (Reported) Cyclobenzaprine HCl 10 MG TABLET 1 TAB PO TID PRN SPASMS (Reported) Diazepam (Valium) 2 MG TABLET 1 TAB PO TID PRN MUSCLE SPASMS/ANXIETY ( Reported) Gabapentin (Unknown Strength) CAPSULE 300 MG PO BID PAIN (Reported) Midodrine HCl 5 MG TABLET 3 TAB PO TID HYPOTENSION (Reported) Mirtazapine (Remeron) 30 MG TABLET 1 TAB PO QHS SLEEP (Reported) Multiple Vitamin (Multivitamins) 1 EACH TABLET 1 TAB PO DAILY SUPPLEMENT ( Reported) Vitamin A Palmitate (Vitamin A) 10,000 UNIT CAPSULE 1 CAP PO DAILY SUPPLEMENT (Reported) Zolpidem Tartrate (Ambien) 5 MG TABLET 1 TAB PO QHS SLEEP (Reported) Core Measure Meds Pre-Hospital aspirin Triage Note: PT TO ED FOR CHRONIC ABD PAIN, STATING "I THINK I JUST NEED ONE SHOT OF DILAUDID AND THEN ILL BE GOOD TO GO" Triage Nurses Notes Reviewed? yes Onset: Evening Duration: hour(s):, constant, continues in ED Timing: recent history Severity: moderate No Modifying Factors: none HPI: Patient presents with recurrent constant nonradiating moderate to severe abdominal cramping. He denies fever chills nausea vomiting diarrhea chest pain cough shortness of breath headache dysuria rash bleeding. Past History Travel History Traveled to [place] past 21 day No Medical History Any Pertinent Medical History? see below for history Neurological: PARAPLEGIC autonomic dysreflexia EENT: NONE Cardiovascular: hypertension, myocardial infarction Respiratory: ASPIRATION PNEUMONIA Gastrointestinal: GERD, COLOSTOMY PEPTIC ULCER DISEASE Hepatic: NONE Renal: nephrolithiasis (bladder), neurogenic bladder, SUPRAPUBIC CYSTOSTOMY ZURI UTI's Musculoskeletal: chronic back pain, DECUBITIS R HIP & COCCYX TIB/FIB FX CHRONIC NECK PAIN STAGE 4 PRES ULCER COCCYX OSTEOMYELITIS (BILATERAL ISCHIA) Psychiatric: NONE Endocrine: NONE Blood Disorders: anemia Cancer(s): lung cancer (non-small cell) [employer] OFFICER/Reproductive: NONE Other Medical Hx: PARAPLEGIA History of MRSA: Yes History of VRE: Yes History of CDIFF: No Surgical History Surgical History: spinal fusion, status post colostomy status post skin grafts to the ischial decubiti Psychosocial History Who do you live with Paid Attentent Services at Home Home Health Aide, Nursing, Physical Therapy, Social Work What is your primary language Kazakh Family History Family History, If Any: FATHER FH: coronary artery disease FH: diabetes mellitus FH: hypertension Hx Contributory? No Review of Systems Review of Systems Constitutional: Reports: no symptoms. EENTM: Reports: no symptoms. Respiratory: Reports: no symptoms. Cardiovascular: Reports: no symptoms. GI: Reports: see HPI, abdominal pain. Genitourinary: Reports: no symptoms. Musculoskeletal: Reports: no symptoms. Skin: Reports: no symptoms. Neurological/Psychological: Reports: no symptoms. Hematologic/Endocrine: Reports: no symptoms. Immunologic/Allergic: Reports: no symptoms. All Other Systems: Reviewed and Negative Physical Exam Physical Exam General Appearance: well developed/nourished, alert, awake, anxious, mild distress Head: atraumatic, normal appearance Eyes: Bilateral: normal appearance, PERRL, EOMI. Ears, Nose, Throat: normal pharynx, normal ENT inspection Neck: normal inspection, supple, full range of motion, no midline tenderness Respiratory: normal breath sounds, chest non-tender, no respiratory distress, quiet respiration Cardiovascular: regular rate/rhythm, normal peripheral pulses, norml femoral pulses equa Peripheral Pulses: 4+ carotid (R), 4+ carotid (L) Gastrointestinal: normal bowel sounds, soft, non-tender, no organomegaly Back: normal inspection Extremities: normal inspection, normal capillary refill, normal range of motion Neurologic/Psych: awake, alert, oriented x 3, pattern room attendant II-XII nml as tested, motor/ sensory deficits (paraplegic) Reflexes: 2+: bicep (R), bicep (L). Skin: intact, normal color Lymphatic: no anterior cervical seymour Core Measures ACS in differential dx? No CVA/TIA Diagnosis: No Severe Sepsis Present: No Septic Shock Present: No Progress Differential Diagnoses I considered the following diagnoses in my evaluation of the patient: chronic pain syndrome Plan of Care: Current Medications Sig/Nelson Start time Last Medication Dose Stop Time Status Admin Hydromorphone HCl 2 MG ONCE ONE 12/07 1100 UNVr (Dilaudid) 12/07 1101 Initial ED EKG: normal intervals Departure Departure Time of Disposition: 1059 Disposition: HOME OR SELF CARE Condition: Stable Clinical Impression Primary Impression: Chronic pain Qualifiers: Chronic pain type: chronic pain syndrome Qualified Code: G89.4 - Chronic pain syndrome Referrals: TATYANA MACE MD (PCP/Family) Departure Forms: General Discharge Information Critical Care Note Critical Care Note Critical Care Time: non-applicable
== END 2016-12-07 11:08 ==
LOC: ERH 10:50
DX: G89.29 Other chronic pain (principal)
CPT/HCPCS: 96372

== ENCOUNTER 2016-12-08 17:56 | Emergency (ER) | payer OTHER, MEDICARE ==
[2016-12-08 18:11] VITALS: BP 105/78
--- NOTE | 2016-12-08 18:38 | ED GENERAL ADULT ---
History of Present Illness General Chief Complaint: Male Genitourinary Problems Stated Complaint: ABD PAIN/UTI Source: patient Exam Limitations: no limitations Vital Signs & Intake/Output Vital Signs & Intake/Output Vital Signs Date Time Temp Pulse Resp B/P B/P Pulse O2 O2 Flow FiO2 Mean Ox Delivery Rate 12/08 1811 97.7 82 16 105/78 98 Room Air Allergies Coded Allergies: No Known Allergies (11/13/16) Reconcile Medications Amitriptyline HCl 25 MG TABLET 1 TAB PO QHS SLEEP (Reported) Ascorbic Acid (Vitamin C) 1,000 MG TABLET 1 TAB PO DAILY SUPPLEMENT (Reported ) Aspirin (Ecotrin*) 81 MG TABLET.DR 1 TAB PO DAILY HEART HEALTH (Reported) Cyclobenzaprine HCl 10 MG TABLET 1 TAB PO TID PRN SPASMS (Reported) Diazepam (Valium) 2 MG TABLET 1 TAB PO TID PRN MUSCLE SPASMS/ANXIETY ( Reported) Gabapentin (Unknown Strength) CAPSULE 300 MG PO BID PAIN (Reported) Midodrine HCl 5 MG TABLET 3 TAB PO TID HYPOTENSION (Reported) Mirtazapine (Remeron) 30 MG TABLET 1 TAB PO QHS SLEEP (Reported) Multiple Vitamin (Multivitamins) 1 EACH TABLET 1 TAB PO DAILY SUPPLEMENT ( Reported) Vitamin A Palmitate (Vitamin A) 10,000 UNIT CAPSULE 1 CAP PO DAILY SUPPLEMENT (Reported) Zolpidem Tartrate (Ambien) 5 MG TABLET 1 TAB PO QHS SLEEP (Reported) Triage Note: 56M C/O ABDOMINAL PAIN AND DECREASED OUTPUT WITH CLOUDINESS TO URINE IN SUPRABUBIC CATH X1 WEEK. -N/V. REPORTS OUTPUT TO COLOSTOMY BAG APPEARS NORMAL TO BASELINE. PARALYSIS FROM BREASTLINE DOWN. STABBING TIGHTNESS TO ABDOMEN CONSTANT 10/10. AFEBRILE Triage Nurses Notes Reviewed? yes HPI: 56-year-old male with history of paraplegia, hypertension, MD, status post colostomy bag placement, status post suprapubic Russ placement, lung cancer, kidney stones presenting with reports of decreased urinary output from his suprapubic Russ, and dark urine with sediment 1 week. Was recently seen by his urologist for the same with negative urine culture. Patient now endorsing sharp suprapubic abdominal pain. Reports that the pain is chronic but that he feels as if it slightly worse over the past 24 hours. Denies fevers, nausea, vomiting. Colostomy bag in place and reports no changes to output. (MARILYN KAHN,CHAYITO) Past History Travel History Traveled to [place] past 21 day No Medical History Any Pertinent Medical History? 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 Other Medical Hx: PARAPLEGIA History of MRSA: Yes History of VRE: Yes History of CDIFF: No Surgical History Surgical History: spinal fusion, status post colostomy status post skin grafts to the ischial decubiti Psychosocial History Who do you live with Paid Attentent Services at Home Home Health Aide, Nursing, Physical Therapy, Social Work What is your primary language [place] Tobacco Use: Never used ETOH Use: denies use Illicit Drug Use: denies illicit drug use Family History Family History, If Any: FATHER FH: coronary artery disease FH: diabetes mellitus FH: hypertension Hx Contributory? No (MARILYN KAHN,CHAYITO) Review of Systems Review of Systems Constitutional: Reports: no symptoms. Respiratory: Reports: no symptoms. Cardiovascular: Reports: no symptoms. GI: Reports: abdominal pain. Denies: bloating, constipation, diarrhea, melena, nausea, bloody stool, vomiting. Genitourinary: Reports: see HPI. Neurological/Psychological: Reports: no symptoms. (MARILYN KAHN,CHAYITO) Physical Exam Physical Exam General Appearance: well developed/nourished, no apparent distress, alert, awake , comfortable Head: atraumatic Respiratory: normal breath sounds, lungs clear Cardiovascular: regular rate/rhythm, normal peripheral pulses Gastrointestinal: normal bowel sounds, soft, non-tender Neurologic/Psych: awake, alert, oriented x 3, normal mood/affect Core Measures ACS in differential dx? No CVA/TIA Diagnosis: No Severe Sepsis Present: No Septic Shock Present: No (CHAYITO SANDERS PA-C) Progress Differential Diagnoses I considered the following diagnoses in my evaluation of the patient: [UTI versus pyelonephritis vs colitis versus enteritis versus appendicitis.] Plan of Care: Orders Procedure Date/time Status URINALYSIS 12/08 1810 Complete Laboratory Tests 12/08/161914: Urinalysis LIGHT H, Urine Color YEL, Urine Clarity CLDY H, Urine pH 8.5 H, Ur Specific [place] 1.010, Urine Protein 100 H, Urine Ketones TRACE H, Urine Nitrite NEG, Urine Bilirubin NEG, Urine Urobilinogen 0.2, Ur Leukocyte Esterase LARGE H, Ur Microscopic SEDIMENT EXAMINED, Urine RBC RARE, Urine WBC 10-15 H, Ur Epithelial Cells OCCAS, Urine Crystals 3+ TRIP PHOS H, Urine Bacteria PACKD H, Urine Mucus FEW, Urine Hemoglobin NEG, Urine Glucose NEG 12/08/161836: Lipase Cancelled, CBC w Diff Cancelled, WBC Cancelled, RBC Cancelled, Hgb Cancelled, Hct Cancelled, MCV Cancelled, MCH Cancelled, RDW Cancelled, Plt Count Cancelled, MPV Cancelled, PUBS MCHC Cancelled Urine shows possible signs of infection. However of note patient's recent culture done by his urologist a few days ago did not have any growth. Spoke to patient's urologist and advised to hold off on antibiotics at this time. Stated that he will follow-up in the patient's urine culture and treat with antibiotics if necessary. (CHAYITO SANDERS PA-C) Initial ED EKG: none (CHAYITO SANDERS PA-C) Departure Departure Disposition: HOME OR SELF CARE Condition: Stable Clinical Impression Primary Impression: Abdominal pain Referrals: TATYANA MACE MD (PCP/Family) Additional Instructions: Follow-up with your urologist for further evaluation. Return to the ED for any new or worsening symptoms. Departure Forms: Customer Survey General Discharge Information (CHAYITO SANDERS PA-C) PA/CIVIL DRAFTSMAN Co-Sign Statement Statement: ED Attending supervision documentation- [] I saw and evaluated the patient. I have also reviewed all the pertinent lab results and diagnostic results. I agree with the findings and the plan of care as documented in the PA's/CIVIL DRAFTSMAN's documentation. [X] I have reviewed the ED Record and agree with the PA's/CIVIL DRAFTSMAN's documentation. [] Additions or exceptions (if any) to the PAs/CIVIL DRAFTSMAN's note and plan are summarized below: [] (IRENE RAMOS,BREANN) Critical Care Note Critical Care Note Critical Care Time: non-applicable (MARILYN KAHN,CHAYITO)
[2016-12-09] MEDS ORDERED: PERCOCET 5-3251 EACH PO (21:35)
== END 2016-12-08 20:59 ==
LOC: ERH 17:56
DX: R10.30 Lower abdominal pain, unspecified (principal)
CPT/HCPCS: 81001; 96372

== ENCOUNTER 2016-12-09 15:47 | Emergency (ER) | payer OTHER, MEDICARE ==
[~2016-12-09] VITALS: Ht 172.7 cm; Wt 59.0 kg
--- NOTE | 2016-12-09 15:55 | ED GI/GU/ABDOMINAL COMPLAINT ---
History of Present Illness General Chief Complaint: Male Genitourinary Problems Stated Complaint: BIBA, ABD PAIN, UTI Source: patient, old records, EMS Exam Limitations: no limitations Vital Signs & Intake/Output Vital Signs & Intake/Output Vital Signs Date Time Temp Pulse Resp B/P B/P Pulse O2 O2 Flow FiO2 Mean Ox Delivery Rate 12/09 1823 97.8 62 17 152/88 97 Room Air 12/09 1554 97.3 59 18 158/90 96 Room Air Room Air Allergies Coded Allergies: No Known Allergies (11/13/16) Reconcile Medications Amitriptyline HCl 25 MG TABLET 1 TAB PO QHS SLEEP (Reported) Ascorbic Acid (Vitamin C) 1,000 MG TABLET 1 TAB PO DAILY SUPPLEMENT (Reported ) Aspirin (Ecotrin*) 81 MG TABLET.DR 1 TAB PO DAILY HEART HEALTH (Reported) Cyclobenzaprine HCl 10 MG TABLET 1 TAB PO TID PRN SPASMS (Reported) Diazepam (Valium) 2 MG TABLET 1 TAB PO TID PRN MUSCLE SPASMS/ANXIETY ( Reported) Gabapentin (Unknown Strength) CAPSULE 300 MG PO BID PAIN (Reported) Midodrine HCl 5 MG TABLET 3 TAB PO TID HYPOTENSION (Reported) Mirtazapine (Remeron) 30 MG TABLET 1 TAB PO QHS SLEEP (Reported) Multiple Vitamin (Multivitamins) 1 EACH TABLET 1 TAB PO DAILY SUPPLEMENT ( Reported) Vitamin A Palmitate (Vitamin A) 10,000 UNIT CAPSULE 1 CAP PO DAILY SUPPLEMENT (Reported) Zolpidem Tartrate (Ambien) 5 MG TABLET 1 TAB PO QHS SLEEP (Reported) Triage Nurses Notes Reviewed? yes HPI: Patient presents to the emergency room department complaining of sharp stabbing suprapubic pain. This is the patient's third visit in 3 days for similar complaints. Patient states that Dilaudid is the only thing that takes the pain away. The pain is constant and only decreases when he takes that Dilaudid. There is no nausea or vomiting. There is no radiation of the pain. The pain is 10 out of 10. (DANIA RAMOS,EAMON Guevara) Past History Travel History Traveled to [place] past 21 day No Medical History Any Pertinent Medical History? 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 Other Medical Hx: PARAPLEGIA History of MRSA: Yes History of VRE: Yes History of CDIFF: No Surgical History Surgical History: spinal fusion, status post colostomy status post skin grafts to the ischial decubiti Psychosocial History Who do you live with Paid Attentent Services at Home Home Health Aide, Nursing, Physical Therapy, Social Work What is your primary language Sinhala Tobacco Use: Quit >30 days ago ETOH Use: denies use Illicit Drug Use: denies illicit drug use Family History Family History, If Any: FATHER FH: coronary artery disease FH: diabetes mellitus FH: hypertension Hx Contributory? No (DANIA RAMOS,EAMON Guevara) Review of Systems Review of Systems Constitutional: Reports: no symptoms. EENTM: Reports: no symptoms. Respiratory: Reports: no symptoms. Cardiovascular: Reports: no symptoms. GI: Reports: see HPI, abdominal pain. Genitourinary: Reports: no symptoms. Musculoskeletal: Reports: no symptoms. Skin: Reports: no symptoms. Neurological/Psychological: Reports: no symptoms. Hematologic/Endocrine: Reports: no symptoms. Immunologic/Allergic: Reports: no symptoms. All Other Systems: Reviewed and Negative (DANIA RAMOS,EAMON Guevara) Physical Exam Physical Exam General Appearance: well developed/nourished, alert, awake Head: atraumatic Eyes: Bilateral: PERRL, EOMI. Ears, Nose, Throat, Mouth: hearing grossly normal, moist mucous membrane Neck: normal inspection, supple, full range of motion Respiratory: normal breath sounds, chest non-tender, no respiratory distress, lungs clear Cardiovascular: regular rate/rhythm, normal peripheral pulses Gastrointestinal: normal bowel sounds, soft, no organomegaly, tenderness ( SUPRAPUBIC) Back: normal inspection, normal range of motion Extremities: normal range of motion Neurologic/Psych: awake, alert, oriented x 3 Skin: intact, normal color, warm/dry Core Measures ACS in differential dx? No Severe Sepsis Present: No Septic Shock Present: No (DANIA RAMOS,EAMON Guevara) Progress Differential Diagnosis: biliary colic, bowel obstruction, colon cancer, diverticulitis, gastritis, hepatitis, ischemic bowel, inflamm bowel dis, pancreatitis, perforated viscous, SBO, ureterolithiasis, UTI/pyelo Plan of Care: Orders Procedure Date/time Status LACTIC ACID 12/09 1855 Active BLOOD CULTURE 12/09 163 Active URINALYSIS 12/09 155 Complete LIPASE 12/09 1555 Complete LACTIC ACID 12/09 1555 Complete COMPREHENSIVE METABOLIC PANEL 12/09 155 Complete CBC WITHOUT DIFFERENTIAL 12/09 155 Complete AMYLASE 12/09 1555 Complete Laboratory Tests 12/09/16 1630: Anion Gap 12, Estimated GFR > 60, BUN/Creatinine Ratio 20.0, Glucose 87, Lactic Acid 0.9, Calcium 10.5 H, Total Bilirubin 0.4, AST 11 L, ALT 19 L, Alkaline Phosphatase 169 H, Total Protein 7.9, Albumin 4.4, Globulin 3.5, Albumin/ Globulin Ratio 1.3, Amylase 65, Lipase 199, CBC w Diff NO MAN DIFF REQ, RBC 4.75 , MCV 79.2 L, MCH 25.3 L, RDW 15.8 H, MPV 7.0 L, Gran % 74.2, Lymphocytes % 17.9 L, Monocytes % 4.2, Eosinophils % 3.2, Basophils % 0.5, Absolute Granulocytes 9.9 H, Absolute Lymphocytes 2.4, Absolute Monocytes 0.6, Absolute Eosinophils 0.4, Absolute Basophils 0.1, PUBS MCHC 31.9 L, Urinalysis MOD H, Urine Color YEL, Urine Clarity HAZY H, Urine pH 8.5 H, Ur Specific [place] 1.010, Urine Protein 30 H, Urine Ketones NEG, Urine Nitrite NEG, Urine Bilirubin NEG, Urine Urobilinogen 0.2, Ur Leukocyte Esterase LARGE H, Ur Microscopic SEDIMENT EXAMINED, Urine RBC RARE, Urine WBC 5-10 H, Urine Crystals 1+ TRIP PHOS H, Urine Bacteria MOD H, Urine Hemoglobin TRACE-INTACT H, Urine Glucose NEG Microbiology 12/09 1630 BLOOD: Blood Culture - RECD Diagnostic Imaging: Viewed by Me: CT Scan. Discussed w/RAD: CT Scan. Initial ED EKG: none Hand-Off Endorsed To: MORENA WILCOX MD Endorsed Time: 1933 Pending: CT (DANIA RAMOS,EAMON Guevara) Radiology Impression: No acute findings within the abdomen or pelvis. Chronic postoperative changes following right hemicolectomy with the right lower quadrant ostomy. No bowel obstruction and no evidence of active inflammation. - Partially imaged scrotal hydroceles bilaterally. There is fluid within a fat- containing left inguinal hernia that is nonspecific. Mildly prominent inguinal lymph nodes bilaterally remain stable. - There is a suprapubic Russ catheter in place. Bladder appears slightly thick-walled and can be correlated with urinalysis to exclude underlying infection. - Midline decubitus ulcer and bilateral ischial ulcers, the former associated with chronic sacrococcygeal erosion and the latter associated with chronic erosive and hypertrophic changes of the right and left ischium which remain stable. - There is also a similar ulcer dorsal to the proximal left femur associated with chronic hypertrophic change of bone and a few small foci of subcutaneous gas. (JERI RAMOS,MORENA) Departure Departure Condition: Stable Clinical Impression Primary Impression: Lower abdominal pain, unspecified Referrals: TATYANA MACE MD (PCP/Family) Departure Forms: Customer Survey General Discharge Information (DANIA RAMOS,EAMON Guevara) Departure Time of Disposition: 2051 Disposition: HOME OR SELF CARE Additional Instructions: Increase your gabapentin to 2 tabs 2 times a day (MORENA WILCOX MD)
[2016-12-09 16:48] LABS: ABSOLUTE BASOPHIL COUNT 0.1 /CUMM (0.0-0.2); ABSOLUTE EOSINOPHIL COUNT 0.4 /CUMM (0.0-0.7); ABSOLUTE GRANULOCYTE CT 9.9 /CUMM (1.4-6.5); ABSOLUTE LYMPH COUNT 2.4 /CUMM (1.2-3.4); ABSOLUTE MONOCYTE COUNT 0.6 /CUMM (0.10-0.60); BASOPHIL % 0.5 % (0.0-2.0); EOSINOPHIL % 3.2 % (0-5); GRANULOCYTE % 74.2 % (42.2-75.2); HEMATOCRIT 37.6 % (42-52); MEAN CORPUSCULAR HGB 25.3 PG (27.0-31.0); MEAN CORPUSCULAR HGB CONC 31.9 G/DL (33.0-37.0); MEAN CORPUSCULAR VOLUME 79.2 FL (80.0-94.0); PLATELET COUNT 825 /CUMM (130-400); RBC DISTRIBUTION WIDTH 15.8 % (11.5-14.5); RED BLOOD CELL CT 4.75 /CUMM (4.70-6.10); WHITE BLOOD CELL COUNT 13.4 /CUMM (4.8-10.8)
--- NOTE | 2016-12-09 20:38 | CT SCAN REPORT ---
EXAMINATION: CT ABDOMEN AND PELVIS WITH CONTRAST CLINICAL INFORMATION: Severe lower abdominal pain. COMPARISON: Abdominal CT 10/27/2016. TECHNIQUE: Multidetector volumetric imaging was performed of the abdomen and pelvis before and after the IV administration of 95 mL of Optiray 320 intravenous contrast. Sagittal and coronal reformatted images were obtained on the technologist's workstation. FINDINGS: The lung bases are clear. The liver, spleen, adrenal glands, gallbladder, and pancreas are normal. The kidneys exhibit symmetric nephrograms without evidence of hydronephrosis or nephrolithiasis. Renal cysts bilaterally. Partial colectomy with a right lower quadrant ostomy. Sigmoid diverticulosis without evidence of acute diverticulitis. No focal inflammatory changes adjacent to the large or the small bowel. There is no free air and there is no intra-abdominal free fluid. No mesenteric or retroperitoneal adenopathy. There is aortoiliac atherosclerotic calcification. Partially imaged scrotal hydroceles bilaterally. There is fluid within a fat-containing left inguinal hernia that is nonspecific. Mildly prominent inguinal lymph nodes bilaterally remain stable. There is a suprapubic [place]al[place] catheter in place. Bladder appears slightly thick-walled and can be correlated with urinalysis to exclude underlying infection. Midline decubitus ulcer and bilateral ischial ulcers, the former associated with chronic sacrococcygeal erosion and the latter associated with chronic erosive and hypertrophic changes of the right and left ischium which remain stable. Degenerative changes of the right greater than left femoroacetabular joint. There is also a similar ulcer dorsal to the proximal left femur associated with chronic hypertrophic change of bone and a few small foci of subcutaneous gas. IMPRESSION: - No acute findings within the abdomen or pelvis. Chronic postoperative changes following right hemicolectomy with the right lower quadrant ostomy. No bowel obstruction and no evidence of active inflammation. - Partially imaged scrotal hydroceles bilaterally. There is fluid within a fat-containing left inguinal hernia that is nonspecific. Mildly prominent inguinal lymph nodes bilaterally remain stable. - There is a suprapubic Escalante catheter in place. Bladder appears slightly thick-walled and can be correlated with urinalysis to exclude underlying infection. - Midline decubitus ulcer and bilateral ischial ulcers, the former associated with chronic sacrococcygeal erosion and the latter associated with chronic erosive and hypertrophic changes of the right and left ischium which remain stable. - There is also a similar ulcer dorsal to the proximal left femur associated with chronic hypertrophic change of bone and a few small foci of subcutaneous gas.
[2016-12-09] MEDS ORDERED: PERCOCET 5-3251 EACH PO (21:35)
[2016-12-09 21:38] VITALS: BP 102/74
== END 2016-12-09 21:41 ==
LOC: ERH 15:47
PROVIDERS: Emergency Medicine
DX: R10.30 Lower abdominal pain, unspecified (principal)
CPT/HCPCS: 74177; 81001; 87040; 96372; 96374; 96376